=== PATIENT | male | born 1970 | race Two or more races ===

== ENCOUNTER 2020-05-25 15:51 | Outpatient (REF) | payer MEDICARE, MEDICAID, SELFPAY | END 2020-05-25 15:52 | disposition home or self-care (01) | LOC: HO.LNP 15:51 | PROVIDERS: Visit Provider Nurse Practitioner Family | DX: J02.9 Acute pharyngitis, unspecified (principal) | CPT/HCPCS: 87071 ==

== ENCOUNTER 2020-06-17 12:46 | Outpatient (REF) | payer MEDICARE, MEDICAID, SELFPAY | END 2020-06-17 12:47 | disposition home or self-care (01) | LOC: HO.LAB 12:46 | PROVIDERS: Visit Provider Internal Medicine | DX: Z20.828 Contact with and (suspected) exposure to other viral communicable diseases (principal) | CPT/HCPCS: C9803; U0003 ==

== ENCOUNTER 2020-12-11 10:02 | Outpatient (REF) | payer OTHER, SELFPAY ==
[2020-12-11 11:08] LABS: Alanine Aminotransferase 66 U/L (0-40); Albumin Level 4.3 g/dL (3.5-5.0); Alkaline Phosphatase 58 U/L (39-117); Anion Gap 14 (12-20); Aspartate Amino Transferase 38 U/L (5-37); Bilirubin Total 0.8 mg/dL (0.0-1.0); Blood Urea Nitrogen 16 mg/dL (9-16); Calcium 9.5 mg/dL (8.4-10.2); Carbon Dioxide 26 mmol/L (22-29); Chloride 103 mmol/L (96-108); Cholesterol 137 mg/dL; Estimated Glomerular Filt Rate > 60; Glucose Fasting 158 mg/dL (60-99); HDL Cholesterol 41 mg/dL; LDL Cholesterol Calculated 64 mg/dl; Sodium 139 mmol/L (135-145); Total Protein 7.2 g/dL (6.5-8.0); Triglycerides 161 mg/dL
[2020-12-11 12:19] LABS: Creatinine Urine 207.24 mg/dL; Microalbum/Creatinine Ratio Ur 14.9 ug/mg cr
== END 2020-12-11 10:03 | disposition home or self-care (01) ==
LOC: HO.LAB 10:02
PROVIDERS: PCP Internal Medicine; Visit Provider Internal Medicine
DX: E11.9 Type 2 diabetes mellitus without complications (principal); E78.5 Hyperlipidemia, unspecified
CPT/HCPCS: 36415; 80053; 80061; 82043

== ENCOUNTER 2020-12-29 09:57 | Emergency (ER) | payer OTHER, SELFPAY ==
--- NOTE | ~2020-12-29 | XR_ITS ---
EXAMINATION: XR ANKLE, RIGHT CLINICAL INFORMATION: Fall COMPARISON: None TECHNIQUE: AP, lateral, and mortise views of the right ankle. FINDINGS: There is question of trauma to the medial malleolus. No adjacent soft tissue swelling is seen and this may not be acute. No definite acute fracture or dislocation is seen. The ankle mortise is normal. There may be an ankle joint effusion. There are small calcaneal spurs. XR/XR ankle RT 2V IMPRESSION: No acute fracture seen. Probable old trauma to the medial malleolus and ankle joint effusion.
--- NOTE | ~2020-12-29 | CT_ITS ---
EXAMINATION: CT HEAD WITHOUT CONTRAST CLINICAL INFORMATION: Headache COMPARISON: Previous head CT most recent April 2018 TECHNIQUE: Contiguous axial imaging was performed from the skull base to vertex without intravenous administration of contrast. This CT examination was performed using dose optimization techniques as appropriate, variously including the following: *Automated exposure control *Adjustment of mA and/or kV according to patient size (this includes techniques or standardized protocols for targeted exams where dose is matched to indication/reason for exam; i.e. extremities or head) *Use of iterative reconstruction technique DLP: 773 mGy-cm FINDINGS: There is no evidence of acute intracranial hemorrhage or territorial infarction. No abnormal mass effect or midline shift is seen. [place] to white matter differentiation is well preserved. No extra-axial fluid collections are identified. The ventricles are normal in size. There is no abnormal attenuation within the brain parenchyma. The osseous structures and soft tissues are normal. There is near complete soft tissue opacification of the left maxillary sinus. There is a small polyp or cyst in the right maxillary sinus. These findings are similar to 2018 exam. The mastoid air cells and visualized portions of the paranasal sinuses are otherwise clear. CT/CT head/brain wo con IMPRESSION: Chronic left maxillary sinus disease otherwise unremarkable exam.
--- NOTE | ~2020-12-29 | CT_ITS ---
EXAMINATION: CT LUMBAR SPINE WITHOUT CONTRAST. CLINICAL INFORMATION: Status post fall COMPARISON: None TECHNIQUE: 2 mm thin axial and reformatted 2 mm thin sagittal and coronal images of lumbar spine were obtained without contrast. 3 mm thin axial and reformatted 0.6 by thin coronal and sagittal images of pelvis were obtained without contrast. FINDINGS: Lumbar spine: On sagittal reconstructed images there is normal lumbar lordosis. The vertebral heights, alignment and disc heights are normal. There is no evidence of disc bulge, herniation or spinal stenosis from T12-L1 through L2-L3 disc level. L3-L4 disc level there is mild bulge without spinal canal stenosis. The neural foramina are patent bilaterally. At L4-L5 disc level there is minimal bulge without spinal canal stenosis. The neural foramina are patent bilaterally. At L5-S1 disc level there is minimal disc bulge, herniation or spinal canal stenosis. The neural foramina are patent bilaterally. There is no visible acute fracture, dislocation or lytic process the soft tissues are normal. The paravertebral soft tissues are normal. Pelvis: The urinary bladder is distended. No radiopaque bladder calculi seen. The bowel gas pattern is nonspecific and appears unremarkable. There is no free fluid in cul-de-sac. No abnormal lymphadenopathy. The prostate gland is normal size. Bone windows reveal no visible fracture or bony abnormality. The hip joints are symmetrical and normal. CT/CT lumbar spine wo con IMPRESSION: Minimal bulges L3-L4 through L5-S1 disc levels but no spinal canal stenosis or neural foramina narrowing. There is no visible acute fracture or bony abnormality. Unremarkable pelvis and sacral spine. No visible fracture seen. The hip joints are intact.
--- NOTE | ~2020-12-29 | CT_ITS ---
EXAMINATION: CT CERVICAL SPINE WITHOUT CONTRAST CLINICAL INFORMATION: Neck pain. Fall. COMPARISON: Cervical spine x-ray October 2007 TECHNIQUE: Axial images through the cervical spine without contrast. Sagittal and coronal reconstructions on the technologist workstation were performed. Patient dose 7 0 2 mg/cm This CT examination was performed using dose optimization techniques as appropriate, variously including the following: *Automated exposure control *Adjustment of mA and/or kV according to patient size (this includes techniques or standardized protocols for targeted exams where dose is matched to indication/reason for exam; i.e. extremities or head) *Use of iterative reconstruction technique DLP: 702 mGy-cm FINDINGS: Bone alignment is normal. No fracture or dislocation is seen. There is mild degenerative spondylosis at C6-C7. Prevertebral soft tissues are normal. There is shotty cervical lymphadenopathy. Visualized lung apices are clear. CT/CT cervical spine wo con IMPRESSION: No fracture or dislocation seen. Mild degenerative spondylosis at C6-C7.
--- NOTE | ~2020-12-29 | CT_ITS ---
EXAMINATION: CT LUMBAR SPINE WITHOUT CONTRAST. CLINICAL INFORMATION: Status post fall COMPARISON: None TECHNIQUE: 2 mm thin axial and reformatted 2 mm thin sagittal and coronal images of lumbar spine were obtained without contrast. 3 mm thin axial and reformatted 0.6 by thin coronal and sagittal images of pelvis were obtained without contrast. FINDINGS: Lumbar spine: On sagittal reconstructed images there is normal lumbar lordosis. The vertebral heights, alignment and disc heights are normal. There is no evidence of disc bulge, herniation or spinal stenosis from T12-L1 through L2-L3 disc level. L3-L4 disc level there is mild bulge without spinal canal stenosis. The neural foramina are patent bilaterally. At L4-L5 disc level there is minimal bulge without spinal canal stenosis. The neural foramina are patent bilaterally. At L5-S1 disc level there is minimal disc bulge, herniation or spinal canal stenosis. The neural foramina are patent bilaterally. There is no visible acute fracture, dislocation or lytic process the soft tissues are normal. The paravertebral soft tissues are normal. Pelvis: The urinary bladder is distended. No radiopaque bladder calculi seen. The bowel gas pattern is nonspecific and appears unremarkable. There is no free fluid in cul-de-sac. No abnormal lymphadenopathy. The prostate gland is normal size. Bone windows reveal no visible fracture or bony abnormality. The hip joints are symmetrical and normal. CT/CT pelvis wo con IMPRESSION: Minimal bulges L3-L4 through L5-S1 disc levels but no spinal canal stenosis or neural foramina narrowing. There is no visible acute fracture or bony abnormality. Unremarkable pelvis and sacral spine. No visible fracture seen. The hip joints are intact.
[2020-12-29 10:23] VITALS: BP 139/92; PULSE 68; RESP 15; TEMP 36.1; O2SAT 97; BMI 31.6
--- NOTE | 2020-12-29 12:07 | ED_ITS ---
HPI - General Adult General Chief complaint: Back Pain/Injury <ZULLY Brandt - Last Filed: 12/29/20 16:18> Stated complaint: fall back pain <ZULLY Brandt - Last Filed: 12/29/20 16:18> Time Seen by Provider: 12/29/20 11:46 <ZULLY Brandt - Last Filed: 12/29/20 16:18> Source: patient <ZULLY Brandt - Last Filed: 12/29/20 16:18> Mode of arrival: ambulatory <ZULLY Brandt Last Filed: 12/29/20 16:18> History of Present Illness HPI narrative: 50-year-old male past medical history of diabetes, hypertension dyslipidemia asthma presenting to emergency department after a fall. He states he [place] park [place]21 and he slipped on a wet mat trying to get a tube and fell backwards. He does not think he had a head. No LOC. He was able to get himself right afterwards. Denies anticoagulant use. Since then he has been complaining of persistent headaches to the back his head that radiates to the front. He endorses neck pain, lower back pain and tailbone pain. He states he injured his right ankle. He has been able to ambulate since injury. He denies any incontinence. He denies chest pain, abdominal pain. He denies IV drug use. No spinal injection. He states he attempted to come to [facility] each time he was very busy so he went home. <ZULLY Brandt - Last Filed: 12/29/20 16:18> Related Data Home medications: Home Medications Medication Instructions Recorded Confirmed buspirone 10 mg tablet 10 mg PO BID 05/25/20 01/13/21 clonazepam 1 mg tablet 1 mg PO BEDTIME PRN 05/25/20 01/13/21 flu vacc [id number] 6mos up(PF) ml IM ONCE 05/25/20 01/13/21 fluticasone 113 mcg-salmeterol 14 1 inh PO BID 05/25/20 01/13/21 mcg/actuation breath activated powdr prazosin 2 mg capsule 2 mg PO BEDTIME 05/25/20 01/13/21 prazosin 5 mg capsule 5 mg PO BEDTIME 05/25/20 01/13/21 risperidone 1 mg tablet 1 mg PO QAM 05/25/20 01/13/21 trazodone 50 mg tablet mg PO 05/25/20 01/13/21 Previous Rx's Medication Instructions Recorded metformin 500 mg tablet,extended 500 mg PO BID 90 Days #180 tab 07/13/20 release 24hr albuterol sulfate 90 mcg/actuation 1 puff PO Q4H PRN 30 Days #6.7 g 07/24/20 aerosol inhaler escitalopram oxalate 20 mg tablet 20 mg PO DAILY 90 Days #90 tab 07/24/20 amlodipine 10 mg tablet 10 mg PO DAILY #90 tab 12/09/20 atorvastatin 20 mg tablet 20 mg PO DAILY #90 tab 12/24/20 lidocaine 1 patch TOPICAL DAILY 5 Days #5 ea 12/29/20 cyclobenzaprine 10 mg tablet 10 mg PO TID PRN #90 tab 01/13/21 acetaminophen 650 mg 1,300 mg PO Q8H PRN 30 Days #120 02/03/21 tablet,extended release tab amoxicillin 500 mg tablet 500 mg PO BID 7 Days #14 tab 02/03/21 <ZULLY Brandt - Last Filed: 12/29/20 16:18> Allergies/adverse reactions: Allergies Allergy/AdvReac Type Severity Reaction Status Date / Time lisinopril Allergy Severe anaphylaxis Verified 01/13/21 14:11 gabapentin AdvReac Intermediate leg edema Verified 01/13/21 14:11 <ZULLY Brandt Last Filed: 12/29/20 16:18> Review of Systems Constitutional: Constitutional: Denies fever(s) and Reports headache(s) <ZULLY Brandt Last Filed: 12/29/20 16:18> Eyes: Eyes: Reports no additional eye complaints <ZULLY Brandt Last Filed: 12/29/20 16:18> ENT: Denies dizziness and Reports headache(s) <ZULLY Brandt Last Filed: 12/29/20 16:18> Cardiovascular: Cardiovascular: Denies chest pain and Denies dyspnea <ZULLY Brandt Last Filed: 12/29/20 16:18> Respiratory: Respiratory: Denies dyspnea <ZULLY Brandt - Last Filed: 12/29/20 16:18> Gastrointestinal: Gastrointestinal: Denies abdominal pain <ZULLY Brandt - Last Filed: 12/29/20 16:18> Genitourinary: Genitourinary: Denies urinary incontinence <ZULLY Brandt - Last Filed: 12/29/20 16:18> Musculoskeletal: Musculoskeletal: Reports back pain <ZULLY Brandt - Last Filed: 12/29/20 16:18> Comments: right ankle pain <ZULLY Brandt - Last Filed: 12/29/20 16:18> Neurologic: Denies dizziness and Reports headache(s) <ZULLY Brandt - Last Filed: 12/29/20 16:18> Hematologic/Lymphatic: Hematologic/Lymphatic: Denies easy bleeding <ZULLY Brandt - Last Filed: 12/29/20 16:18> PMF Past Medical History Medical History: Medical History Depression with anxiety Diabetes mellitus Dyslipidemia Essential hypertension Insomnia Mild asthma Polyarthralgia <ZULLY Brandt - Last Filed: 12/29/20 16:18> Surgical History: Surgical History Donor, kidney History of circumcision <ZULLY Brandt - Last Filed: 12/29/20 16:18> Family History Family History: Family History (Updated 01/13/21 @ 13:58 by CHRIS Weathers) Father Liver problem Mother Diabetes Hypertension Stroke Brother Throat cancer Family/Other Mental health disorder <ZULLY Brandt - Last Filed: 12/29/20 16:18> Social History Social History: Social History Housing: Apartment Alcohol intake: former Patient Tobacco Use Status: Former Tobacco user Tobacco use type: Cigarette e-Cigarette/Vaping Use: Never Used Second Hand Smoke Exposure: No service: No Current occupational status: disabled <ZULLY Brandt - Last Filed: 12/29/20 16:18> Physical Exam Vital Signs: Vital Signs: Last Vital Signs Temp 98.3 F 12/29/20 14:29 Pulse 73 12/29/20 14:29 Resp 16 12/29/20 14:29 BP 136/92 H 12/29/20 14:29 Pulse Ox 98 12/29/20 14:29 Body Mass Index 31.6 <ZULLY Brandt - Last Filed: 12/29/20 16:18> Vital Signs: Last Vital Signs Temp 98.3 F 12/29/20 14:29 Pulse 73 12/29/20 14:29 Resp 16 12/29/20 14:29 BP 136/92 H 12/29/20 14:29 Pulse Ox 98 12/29/20 14:29 Body Mass Index 31.6 <Markel Mujica MD - Last Filed: 02/06/21 08:51> Const: Other: Patient sitting upright in stretcher <ZULLY Brandt - Last Filed: 12/29/20 16:18> Orientation/consciousness: patient oriented x3 <ZULLY Brandt - Last Filed: 12/29/20 16:18> HENMT: Head: Yes atraumatic <ZULLY Brandt - Last Filed: 12/29/20 16:18> Eyes: Pupils: Equal, round and reactive pupils present <ZULLY Brandt - Last Filed: 12/29/20 16:18> EOM: EOMs intact bilaterally <ZULLY Brandt - Last Filed: 12/29/20 16:18> Neck: Neck: Yes full ROM, Yes trachea midline and Yes supple <ZULLY Brandt - Last Filed: 12/29/20 16:18> Chest: Chest palpation & inspection: normal inspection of the chest <ZULLY Brandt - Last Filed: 12/29/20 16:18> Resp: Effort & Inspection: normal respiratory effort <ZULLY Brandt - Last Filed: 12/29/20 16:18> Auscultation: clear to auscultation bilaterally <ZULLY Brandt - Last Filed: 12/29/20 16:18> Cardio: Rate: regular rate <ZULLY Brandt - Last Filed: 12/29/20 16:18> Rhythm: regular rhythm <ZULLY Brandt - Last Filed: 12/29/20 16:18> GI: Inspection: No distended <ZULLY Brandt - Last Filed: 12/29/20 16:18> Palpation (GI): Soft to palpation and nontender <ZULLY Brandt - Last Filed: 12/29/20 16:18> Back/Spine/Pelvis: Other: Tenderness to his right upper trapezius musculature, tenderness to his lumbar spine diffusely <ZULLY Brandt - Last Filed: 12/29/20 16:18> Skin: Other: Intact skin, warm <ZULLY Brandt - Last Filed: 12/29/20 16:18> Neuro: Other: No focal neurological deficits <ZULLY Brandt - Last Filed: 12/29/20 16:18> General: patient oriented x3 <ZULLY Brandt - Last Filed: 12/29/20 16:18> Cranial nerves: Yes Equal, round and reactive pupils present <ZULLY Brandt - Last Filed: 12/29/20 16:18> Extrem: Other: Pelvis is stable, able to passively range at each joint in his lower extremities, he has some swelling to his right ankle pain along his lateral malleolus but is able to flex and extend, palpable pulses bilaterally, compartments soft, neurovascularly intact, no obvious deformity <ZULLY Brandt - Last Filed: 12/29/20 16:18> Psych: Appearance: grossly normal <ZULLY Brandt - Last Filed: 12/29/20 16:18> Course Course Course Narrative: Patient has been requesting something else for his pain and states the Tylenol has not helped. He states he donated one of his kidneys and does not want to take ibuprofen. <ZULLY Brandt Last Filed: 12/29/20 16:18> I have reviewed the chart <Markel Mujica MD - Last Filed: 02/06/21 08:51> Reevaluation(s) Reevaluation #1: His CTs were negative for an acute fracture. <ZULLY Brandt - Last Filed: 12/29/20 16:18> Reevaluation #2: TECHNIQUE: 2 mm thin axial and reformatted 2 mm thin sagittal and coronal images of lumbar spine were obtained without contrast. 3 mm thin axial and reformatted 0.6 by thin coronal and sagittal images of pelvis were obtained without contrast. FINDINGS: Lumbar spine: On sagittal reconstructed images there is normal lumbar lordosis. The vertebral heights, alignment and disc heights are normal. There is no evidence of disc bulge, herniation or spinal stenosis from T12-L1 through L2-L3 disc level. L3-L4 disc level there is mild bulge without spinal canal stenosis. The neural foramina are patent bilaterally. At L4-L5 disc level there is minimal bulge without spinal canal stenosis. The neural foramina are patent bilaterally. At L5-S1 disc level there is minimal disc bulge, herniation or spinal canal stenosis. The neural foramina are patent bilaterally. There is no visible acute fracture, dislocation or lytic process the soft tissues are normal. The paravertebral soft tissues are normal. Pelvis: The urinary bladder is distended. No radiopaque bladder calculi seen. The bowel gas pattern is nonspecific and appears unremarkable. There is no free fluid in cul-de-sac. No abnormal lymphadenopathy. The prostate gland is normal size. Bone windows reveal no visible fracture or bony abnormality. The hip joints are symmetrical and normal. CT/CT pelvis wo con IMPRESSION: Minimal bulges L3-L4 through L5-S1 disc levels but no spinal canal stenosis or neural foramina narrowing. There is no visible acute fracture or bony abnormality. Unremarkable pelvis and sacral spine. No visible fracture seen. The hip joints are intact. <ZULLY Brandt - Last Filed: 12/29/20 16:18> Reevaluation #3: FINDINGS: Bone alignment is normal. No fracture or dislocation is seen. There is mild degenerative spondylosis at C6-C7. Prevertebral soft tissues are normal. There is shotty cervical lymphadenopathy. Visualized lung apices are clear. CT/CT cervical spine wo con IMPRESSION: No fracture or dislocation seen. Mild degenerative spondylosis at C6-C7. FINDINGS: There is no evidence of acute intracranial hemorrhage or territorial infarction. No abnormal mass effect or midline shift is seen. Lindo to white matter differentiation is well preserved. No extra-axial fluid collections are identified. The ventricles are normal in size. There is no abnormal attenuation within the brain parenchyma. The osseous structures and soft tissues are normal. There is near complete soft tissue opacification of the left maxillary sinus. There is a small polyp or cyst in the right maxillary sinus. These findings are similar to 2018 exam. The mastoid air cells and visualized portions of the paranasal sinuses are otherwise clear. CT/CT head/brain wo con IMPRESSION: Chronic left maxillary sinus disease otherwise unremarkable exam. <ZULLY Brandt - Last Filed: 12/29/20 16:18> Additional Reevaluation(s): FINDINGS: There is question of trauma to the medial malleolus. No adjacent soft tissue swelling is seen and this may not be acute. No definite acute fracture or dislocation is seen. The ankle mortise is normal. There may be an ankle joint effusion. There are small calcaneal spurs. XR/XR ankle RT 2V IMPRESSION: No acute fracture seen. Probable old trauma to the medial malleolus and ankle joint effusion. <ZULLY Brandt Last Filed: 12/29/20 16:18> Medical Decision Making [facility] Narrative Medical decision making narrative: 50-year-old male presenting to the emergency department with headache and back pain, right ankle pain after a fall [place] water park on [place]21 Vitals stable, not toxic appearing, hemodynamically stable Patient reports persistent headache since the fall, will plan for head CT. Reassuring no cognitive neurologic decline, no focal deficits there were a hemorrhage is less likely but will evaluate. Patient is reporting neck pain and has some tenderness to his upper trapezius seems to be more musculoskeletal however he has increased pain therefore will plan for some cervical CT to rule out underlying fracture. No evidence of thoracic or abdominal injury. His upper limbs are atraumatic. Will plan for CT of his lumbar spine and pelvis to rule out a fracture. He has no red flags for a cord compression. Will plan for plain film of his right ankle as well due to the swelling, however he has been able to ambulate therefore an acute fracture is less likely. <ZULLY Brandt Last Filed: 12/29/20 16:18> Discharge Plan Discharge Clinical Impression: Fall, Ankle sprain, Back pain, Headache <ZULLY Brandt Last Filed: 12/29/20 16:18> Patient Disposition: Home, Self-Care <ZULLY Brandt Last Filed: 12/29/20 16:18> Instructions: Back Pain (ED), R.I.C.E. Treatment (ED), Fall Prevention (ED) <ZULLY Brandt Last Filed: 12/29/20 16:18> Additional Instructions: you were seen in the emergency department after a fall several days ago. Your CAT scan of your head, neck, lower back and pelvis were all unremarkable. No acute fractures. Your x-ray of your right ankle was unremarkable. Please return to the emergency department for symptoms worsen, worsening pain, difficulty walking, numbness, tingling, weakness, vision changes, worsening headache, loss of bladder or bowel function, or any other concerning symptoms. .Please call your doctor for follow up to make sure your symptoms are improving. continue with your home medications, take tylenol for pain if needed. Use lidocaine patches as prescribed. <ZULLY Brandt Last Filed: 12/29/20 16:18> Prescriptions: New lidocaine 5 % adhesive patch,medicated 1 patch topical DAILY 5 Days Qty: 5 RF: 0 No Action albuterol sulfate 90 mcg/actuation HFA aerosol inhaler 1 puff PO Q4H PRN (Reason: shortness of breath or wheezing) 30 Days Qty: 6.7 RF: 8 escitalopram oxalate 20 mg tablet 20 mg PO DAILY 90 Days Qty: 90 RF: 3 amlodipine 10 mg tablet 10 mg PO DAILY Qty: 90 RF: 1 atorvastatin 20 mg tablet 20 mg PO DAILY Qty: 90 RF: 1 amoxicillin 500 mg tablet 500 mg PO BID 7 Days Qty: 14 RF: 0 acetaminophen [Arthritis Pain Relief (acetam)] 650 mg tablet extended release 1,300 mg PO Q8H PRN (Reason: fever or pain) 30 Days Qty: 120 RF: 1 metformin 500 mg tablet extended release 24hr 500 mg PO BID 90 Days Qty: 180 RF: 3 clonazepam 1 mg tablet 1 mg PO BEDTIME PRNRF: 0 prazosin 2 mg capsule 2 mg PO BEDTIME RF: 0 trazodone 50 mg tablet PO RF: 0 buspirone 10 mg tablet 10 mg PO BID RF: 0 risperidone 1 mg tablet 1 mg PO QAM RF: 0 prazosin 5 mg capsule 5 mg PO BEDTIME RF: 0 fluticasone propion-salmeterol 113-14 mcg/actuation aerosol powdr breath activated 1 inh PO BID RF: 0 Fluzone Quad (PF) 60 mcg (15 mcg x 4)/0.5 mL syringe IM ONCE RF: 0 cyclobenzaprine 10 mg tablet 10 mg PO TID PRN (Reason: muscle spasm) Qty: 90 RF: 2 <ZULLY Brandt - Last Filed: 12/29/20 16:18> Interventions: ED Discharge Assessment Last Done: 12/29/20 14:36 <ZULLY Brandt - Last Filed: 12/29/20 16:18> Discharge Date/Time: 12/29/20 14:36 <ZULLY Brandt - Last Filed: 12/29/20 16:18>
[2020-12-29] MEDS: Acetaminophen 325 MG TABLET 650 MG PO (12:10)
[2020-12-29 14:29] VITALS: BP 136/92; PULSE 73; RESP 16; TEMP 36.8; O2SAT 98
== END 2020-12-29 14:36 | disposition home or self-care (01) ==
PROVIDERS: Emergency Provider Emergency Medicine; PCP Internal Medicine
DX: S93.401A Sprain of unspecified ligament of right ankle, initial encounter (principal); W01.0XXA Fall on same level from slipping, tripping and stumbling without subsequent striking against object, initial encounter; G89.11 Acute pain due to trauma; M54.5 Low back pain; R51.9 Headache, unspecified; Y93.19 Activity, other involving water and watercraft; Y92.831 Amusement park as the place of occurrence of the external cause; Y99.8 Other external cause status
CPT/HCPCS: 70450; 72125; 72131; 72192; 73600; 99284; 99285

== ENCOUNTER → 2021-02-16 14:57 | Outpatient (BNVA) | payer OTHER, SELFPAY | PROVIDERS: PCP Internal Medicine; Visit Provider Nurse Practitioner Family | DX: M53.3 Sacrococcygeal disorders, not elsewhere classified (principal); M54.16 Radiculopathy, lumbar region | CPT/HCPCS: 99202 ==

== ENCOUNTER 2021-03-08 09:47 | Outpatient (REF) | payer OTHER, SELFPAY ==
--- NOTE | ~2021-03-08 | XR_ITS ---
EXAMINATION: XR CHEST CLINICAL INFORMATION: Shortness of breath COMPARISON: 05/10/2018 TECHNIQUE: 2 views of the chest were obtained. FINDINGS: Normal symmetric lung volumes. No parenchymal consolidation. No pleural effusion. No pneumothorax. Cardiomediastinal silhouette and pulmonary vascularity are within normal limits. No acute osseous abnormalities. XR/XR chest 2V IMPRESSION: Unremarkable examination.
== END 2021-03-08 09:48 | disposition home or self-care (01) ==
LOC: HO.XRAY 09:47
PROVIDERS: PCP Internal Medicine; Visit Provider Internal Medicine
DX: R06.02 Shortness of breath (principal)
CPT/HCPCS: 71046

== ENCOUNTER 2021-03-09 18:48 | Outpatient (REF) | payer OTHER, SELFPAY ==
--- NOTE | ~2021-03-09 | MR_ITS ---
EXAMINATION: MR LUMBAR SPINE WITHOUT CONTRAST CLINICAL INFORMATION: Radiculopathy lumbar spine. COMPARISON: CT scan of the lumbar spine 12/30/2020. TECHNIQUE: MRI of the lumbar spine was obtained using routine sequences without contrast. FINDINGS: Alignment is normal. Vertebral heights are preserved. No acute bone marrow signal changes. There is relatively mild disc desiccation visualized at multiple levels without substantial loss of intervertebral disc height. There is an asymmetrically bulging disc at L4-L5 causing subtle abutment along the foraminal/extraforaminal segment of the right L4 nerve root. Annular contours are otherwise normal at all levels. The tip of the conus medullaris is located at L1. No mass effect on the conus. Visualized distal cord signal intensity is normal. The left kidney is not visualized. Limited visualization of the retroperitoneal anatomy otherwise reveals no abnormal finding. MR/MR lumbar spine wo con IMPRESSION: There is an asymmetrically bulging disc at L4-L5 causing subtle abutment on the foraminal/extraforaminal segment of the right L4 nerve root. Otherwise no mass effect on the traversing or foraminal nerve roots elsewhere within the lumbar spine. No canal stenosis.
== END 2021-03-09 18:49 | disposition home or self-care (01) ==
LOC: HO.MRI 18:48
PROVIDERS: PCP Internal Medicine; Visit Provider Nurse Practitioner Family
DX: M54.16 Radiculopathy, lumbar region (principal)
CPT/HCPCS: 72148

== ENCOUNTER → 2021-03-26 09:37 | Outpatient (BNVA) | payer OTHER, SELFPAY | PROVIDERS: PCP Internal Medicine; Visit Provider Nurse Practitioner Family | DX: M53.3 Sacrococcygeal disorders, not elsewhere classified (principal); M54.16 Radiculopathy, lumbar region | CPT/HCPCS: Q3014 ==

== ENCOUNTER 2021-04-14 06:03 | Outpatient (REF) | payer OTHER, SELFPAY | END 2021-04-14 06:04 | disposition home or self-care (01) | LOC: HO.RADIR 06:03 | PROVIDERS: Visit Provider Internal Medicine | DX: Z13.89 Encounter for screening for other disorder (principal) ==

== ENCOUNTER 2021-04-28 09:18 | Outpatient (REF) | payer OTHER, SELFPAY ==
[2021-04-28 10:38] LABS: Alanine Aminotransferase 35 U/L (0-40); Albumin Level 4.2 g/dL (3.5-5.0); Alkaline Phosphatase 70 U/L (39-117); Anion Gap 12 (12-20); Aspartate Amino Transferase 18 U/L (5-37); Bilirubin Total 0.9 mg/dL (0.0-1.0); Blood Urea Nitrogen 12 mg/dL (9-16); Calcium 9.4 mg/dL (8.4-10.2); Carbon Dioxide 26 mmol/L (22-29); Chloride 104 mmol/L (96-108); Cholesterol 142 mg/dL; Estimated Glomerular Filt Rate > 60; Glucose Fasting 169 mg/dL (60-99); HDL Cholesterol 34 mg/dL; LDL Cholesterol Calculated 50 mg/dl; Potassium 4.3 mmol/L (3.3-5.1); Sodium 138 mmol/L (135-145); Total Protein 7.5 g/dL (6.5-8.0); Triglycerides 294 mg/dL
[2021-04-28 10:42] LABS: Creatinine Urine 171.41 mg/dL
[2021-05-06 16:07] LABS: Vitamin D 25-OH, D2 <4 ng/mL; Vitamin D 25-OH, D3 28 ng/mL; Vitamin D 25-OH, Total 28 ng/mL (30-100)
== END 2021-04-28 09:19 | disposition home or self-care (01) ==
LOC: HO.LAB 09:18
PROVIDERS: Internal Medicine; PCP Student in an Organized Health Care Education/Training Program; Visit Provider Student in an Organized Health Care Education/Training Program
DX: E11.9 Type 2 diabetes mellitus without complications (principal); E55.9 Vitamin D deficiency, unspecified; I10 Essential (primary) hypertension; E78.5 Hyperlipidemia, unspecified
CPT/HCPCS: 36415; 80053; 80061; 82043; 82306

== ENCOUNTER → 2021-08-18 15:54 | Outpatient (REF) | payer OTHER, SELFPAY | LOC: HO.SL 15:54 | PROVIDERS: Visit Provider Internal Medicine | DX: R40.0 Somnolence (principal); G47.33 Obstructive sleep apnea (adult) (pediatric) | CPT/HCPCS: 95806 ==

== ENCOUNTER 2021-08-24 12:36 | Outpatient (REF) | payer OTHER, SELFPAY ==
--- NOTE | ~2021-08-24 | XR_ITS ---
EXAMINATION: XR CHEST CLINICAL INFORMATION: Cough COMPARISON: Previous chest x-ray most recent February 2021 TECHNIQUE: 2 views of the chest were obtained. FINDINGS: No significant abnormality is noted involving the heart, lungs, mediastinum, bony thorax or soft tissues. XR/XR chest 2V IMPRESSION: Unremarkable examination.
== END 2021-08-24 12:37 | disposition home or self-care (01) ==
LOC: HO.XRAY 12:36
PROVIDERS: PCP Internal Medicine; Visit Provider Internal Medicine
DX: R05.9 Cough, unspecified (principal)
CPT/HCPCS: 71046

== ENCOUNTER → 2021-09-01 14:57 | Outpatient (BNVA) | payer OTHER, SELFPAY | PROVIDERS: PCP Internal Medicine; Visit Provider Internal Medicine | DX: G47.33 Obstructive sleep apnea (adult) (pediatric) (principal); G47.34 Idiopathic sleep related nonobstructive alveolar hypoventilation; E66.9 Obesity, unspecified; Z68.32 Body mass index [BMI] 32.0-32.9, adult | CPT/HCPCS: 99202 ==

== ENCOUNTER 2021-10-05 14:05 | Outpatient (REF) | payer OTHER, SELFPAY ==
--- NOTE | ~2021-10-05 | XR_ITS ---
EXAMINATION: XR FEMUR, RIGHT CLINICAL INFORMATION: Pain right leg. COMPARISON: None TECHNIQUE: AP and lateral views of the right femur were obtained. FINDINGS: There is a juxtacortical and metadiaphyseal lesion distal lateral femoral cortex isodense to the bone marrow and without any scalloping or erosive changes likely benign lesion. It measures 3.3 cm in maximum length. There is no chondroid metrics or sclerosis. XR/XR femur RT 2V IMPRESSION: Metadiaphyseal cortical based lesion likely benign but no aggressive features. Differential diagnoses includes sessile osteochondroma, old healed fracture, fibrous dysplasia or osteoid osteoma. No additional lesions seen. The soft tissues are normal.
== END 2021-10-05 14:06 | disposition home or self-care (01) ==
LOC: HO.XRAY 14:05
PROVIDERS: PCP Internal Medicine; Visit Provider Nurse Practitioner Family
DX: M79.604 Pain in right leg (principal)
CPT/HCPCS: 73552

== ENCOUNTER → 2021-10-12 08:20 | Outpatient (BNVA) | payer OTHER, SELFPAY | PROVIDERS: PCP Internal Medicine; Referring Provider Internal Medicine; Visit Provider Physician Assistant | DX: Z12.11 Encounter for screening for malignant neoplasm of colon (principal); G47.33 Obstructive sleep apnea (adult) (pediatric); K59.00 Constipation, unspecified; Z78.9 Other specified health status | CPT/HCPCS: 99202 ==

== ENCOUNTER → 2021-10-14 22:13 | Outpatient (REF) | payer OTHER, SELFPAY | LOC: HO.SL 22:13 | PROVIDERS: PCP Internal Medicine; Visit Provider Internal Medicine | DX: Z13.89 Encounter for screening for other disorder (principal) ==

== ENCOUNTER → 2021-11-03 15:00 | Outpatient (BNVA) | payer OTHER, SELFPAY | PROVIDERS: PCP Internal Medicine; Visit Provider Internal Medicine | DX: G47.33 Obstructive sleep apnea (adult) (pediatric) (principal); G47.34 Idiopathic sleep related nonobstructive alveolar hypoventilation; E66.9 Obesity, unspecified; Z68.32 Body mass index [BMI] 32.0-32.9, adult | CPT/HCPCS: 99212 ==

== ENCOUNTER → 2021-11-19 10:54 | Outpatient (BNVA) | payer OTHER, SELFPAY | PROVIDERS: PCP Internal Medicine; Visit Provider Physician Assistant | DX: D16.20 Benign neoplasm of long bones of unspecified lower limb (principal) | CPT/HCPCS: 99202 ==

== ENCOUNTER 2021-12-02 18:44 | Outpatient (REF) | payer OTHER, SELFPAY ==
--- NOTE | ~2021-12-02 | MR_ITS ---
EXAMINATION: MR KNEE WITHOUT CONTRAST, RIGHT CLINICAL INFORMATION: Benign neoplasm of long bones. Pain, lump/mass. COMPARISON: Right femoral radiographs dated 10/05/2021. TECHNIQUE: MRI of the knee without contrast was performed using routine sequences on a high-field scanner. FINDINGS: BONE: Within the anterolateral aspect of the distal femoral diametaphysis there is an exophytic bone lesion measuring up to 4.8 x 2.5 cm (CC by ML) with a continuous marrow cavity. Thin cartilaginous cap measuring up to 0.1 cm. Findings are consistent with an osteochondroma. No associated marrow edema. No fracture. No aggressive features. MUSCLES/TENDONS: Within the vastus lateralis myotendinous junction overlying the osteochondroma there is mild edema. No measurable tear or tendon retraction. LIGAMENTS: The intrinsic ligaments of the right knee are partially visualized and unremarkable. SOFT TISSUES: Soft tissue edema with trace fluid interposed between the vastus lateralis and osteochondroma, consistent with adventitial bursitis. MR/MR knee RT wo con IMPRESSION: Osteochondroma at the anterolateral aspect of the femoral diaphysis without aggressive features or acute marrow edema. Overlying soft tissue stranding and minimal fluid consistent with adventitial bursitis. Additionally there is mild edema along the vastus lateralis myotendinous junction consistent with an acute strain. No measurable tear or tendon retraction.
== END 2021-12-02 18:45 | disposition home or self-care (01) ==
LOC: HO.MRI 18:44
PROVIDERS: Visit Provider Physician Assistant
DX: D16.20 Benign neoplasm of long bones of unspecified lower limb (principal)
CPT/HCPCS: 73721

== ENCOUNTER → 2021-12-29 10:56 | Outpatient (BNVA) | payer OTHER, SELFPAY | PROVIDERS: PCP Internal Medicine; Visit Provider Physician Assistant | DX: D16.21 Benign neoplasm of long bones of right lower limb (principal) | CPT/HCPCS: 99212 ==

== ENCOUNTER → 2022-01-05 10:41 | Outpatient (BNVA) | payer OTHER, SELFPAY | PROVIDERS: PCP Internal Medicine; Visit Provider Internal Medicine | DX: E66.9 Obesity, unspecified (principal); G47.33 Obstructive sleep apnea (adult) (pediatric); J44.9 Chronic obstructive pulmonary disease, unspecified; Z68.32 Body mass index [BMI] 32.0-32.9, adult | CPT/HCPCS: 99212 ==

== ENCOUNTER 2022-01-25 13:55 | Outpatient (REF) | payer OTHER, SELFPAY ==
[2022-01-25 16:03] LABS: Alanine Aminotransferase 36 U/L (0-40); Albumin Level 4.3 g/dL (3.5-5.0); Alkaline Phosphatase 68 U/L (39-117); Anion Gap 14 (12-20); Aspartate Amino Transferase 20 U/L (5-37); Bilirubin Total 0.8 mg/dL (0.0-1.0); Blood Urea Nitrogen 15 mg/dL (9-16); Calcium 9.1 mg/dL (8.4-10.2); Carbon Dioxide 25 mmol/L (22-29); Chloride 106 mmol/L (96-108); Cholesterol 135 mg/dL; Estimated Glomerular Filt Rate > 60; Glucose Fasting 102 mg/dL (60-99); HDL Cholesterol 35 mg/dL; LDL Cholesterol Calculated 51 mg/dl; Potassium 3.8 mmol/L (3.3-5.1); Sodium 141 mmol/L (135-145); Total Protein 7.5 g/dL (6.5-8.0); Triglycerides 247 mg/dL
[2022-01-25 16:20] LABS: Free T4 (Free Thyroxine) 0.92 ng/dL (0.71-1.85); Vitamin D 25-OH Total 30.4 ng/mL (>30)
[2022-01-25 16:26] LABS: Prostate Specific Antigen Scr 0.18 ng/mL (<0.05-4.0); Thyroid Stimulating Hormone 3.19 uIU/mL (0.32-4.0)
[2022-01-25 16:38] LABS: Creatinine Urine 182.49 mg/dL; Microalbum/Creatinine Ratio Ur 15.3 ug/mg cr
[2022-01-27 20:21] LABS: Thyroglobulin Antibodies 2 IU/mL (< or = 1); Thyroid Peroxidase Antibodies 149 IU/mL (<9)
== END 2022-01-25 13:56 | disposition home or self-care (01) ==
LOC: HO.LAB 13:55
PROVIDERS: Absent Provider Internal Medicine; PCP Internal Medicine; Visit Provider Nurse Practitioner Family
DX: Z12.5 Encounter for screening for malignant neoplasm of prostate (principal); E78.5 Hyperlipidemia, unspecified; R79.89 Other specified abnormal findings of blood chemistry; E55.9 Vitamin D deficiency, unspecified; E11.9 Type 2 diabetes mellitus without complications; I10 Essential (primary) hypertension
CPT/HCPCS: 36415; 80053; 80061; 82043; 82306; 84153; 84439; 84443; 86376; 86800

== ENCOUNTER → 2022-02-08 08:54 | Outpatient (BNVA) | payer OTHER, SELFPAY | PROVIDERS: PCP Internal Medicine; Referring Provider Internal Medicine; Visit Provider Physician Assistant | DX: Z12.11 Encounter for screening for malignant neoplasm of colon (principal); K59.00 Constipation, unspecified; G47.33 Obstructive sleep apnea (adult) (pediatric); J44.9 Chronic obstructive pulmonary disease, unspecified; K21.9 Gastro-esophageal reflux disease without esophagitis | CPT/HCPCS: 99212 ==

== ENCOUNTER → 2022-02-18 08:17 | Outpatient (BNVA) | payer OTHER, SELFPAY | PROVIDERS: PCP Internal Medicine; Visit Provider Physician Assistant | DX: D16.20 Benign neoplasm of long bones of unspecified lower limb (principal) | CPT/HCPCS: 99212 ==

== ENCOUNTER 2022-02-22 11:24 | Day surgery (SDC) | payer OTHER, SELFPAY ==
[2022-02-10 14:06] VITALS: BMI 32.4
--- NOTE | 2022-02-21 12:04 | HO.ANESPROP2 ---
Documented by User: Anastasiia Oconnor NP 02/21/22 12:06 HPI - Anesthesia Eval Consult details Narrative: 51yo M for Right Excision Bone growth- Osteochondroma of femur PMFSH Active Problems Active Problems: All Active Problems (Updated 02/08/22 @ 09:43 by Bettye Harry PA-C) Acid reflux (Acute) Asthma with COPD (Acute) Physical exam (Acute) Osteochondroma of femur (Acute) Abnormal metaphysis of bone (Acute) Constipation (Acute) Poor historian (Acute) Right leg pain (Acute) Screen for colon cancer (Acute) Nocturnal hypoxemia (Acute) SRINI (obstructive sleep apnea) (Acute) Obesity (BMI 35.0-39.9 without comorbidity) (Acute) Elevated TSH (Acute) Family history of throat cancer (Acute) Chronic sore throat (Acute) Daytime somnolence (Acute) Shortness of breath (Acute) Mild recurrent major depression (Acute) Sacrococcygeal pain (Acute) Bilateral lumbar radiculopathy (Acute) Polyarthralgia (Acute) Lower back pain (Acute) Insomnia (Acute) Dyslipidemia (Acute) Mild asthma (Acute) Essential hypertension (Acute) Depression with anxiety (Acute) Sinusitis, acute maxillary (Acute) Sore throat (Acute) Diabetes mellitus (Acute) Past Medical History Medical History Chronic sore throat Daytime somnolence Depression with anxiety Diabetes mellitus Dyslipidemia Elevated TSH Essential hypertension Family history of throat cancer Insomnia Mild asthma Mild recurrent major depression Nocturnal hypoxemia Obesity (BMI 35.0-39.9 without comorbidity) SRINI (obstructive sleep apnea) Polyarthralgia Screen for colon cancer Shortness of breath Family History Family History Father Liver problem Mother Diabetes Hypertension Stroke Brother Throat cancer Family/Other Mental health disorder Surgical History Surgical History Donor, kidney History of circumcision Social History Social History Housing: Apartment Alcohol intake: former Patient Tobacco Use Status: Former Tobacco user Quit Date: 2007 Tobacco use type: Cigarette e-Cigarette/Vaping Use: Never Used Second Hand Smoke Exposure: No Use of substances other than those prescribed or required for medical reasons: No Are you DNR?: No Advance Directives: No Advance Directives Information Provided: Yes service: No Current occupational status: disabled Current occupation: left hand Cognitive needs: No Hearing needs: No Vision needs: No Meds Allergies Allergy/AdvReac Type Severity Reaction Status Date / Time lisinopril Allergy Severe anaphylaxis Verified 02/18/22 08:23 gabapentin AdvReac Intermediate leg edema Verified 02/18/22 08:23 Home Medications Medication Instructions Recorded Confirmed Last Taken Type buspirone 10 mg tablet 10 mg PO BID 05/25/20 02/10/22 Unknown History clonazepam 1 mg tablet 1 mg PO BEDTIME PRN Anxiety 05/25/20 02/10/22 Unknown History prazosin 2 mg capsule 2 mg PO BEDTIME 05/25/20 02/10/22 Unknown History prazosin 5 mg capsule 5 mg PO BEDTIME 05/25/20 02/10/22 Unknown History risperidone 1 mg tablet 1 mg PO QAM 05/25/20 02/10/22 Unknown History metformin 500 mg tablet,extended 500 mg PO BID 01/05/22 02/10/22 Unknown History release 24 hr omeprazole 20 mg capsule,delayed 20 mg PO QAM 01/05/22 02/10/22 02/22/22 08:00 History release Exam Exam Date and Time: February 21, 2022 1204 Height,Weight and Vital Signs: Height 5 ft 10 in Weight 102.5 kg Pertinent Lab Results Pertinent Lab Results: Laboratory Tests 07/23/19 01/25/22 15:50 14:38 WBC 8.6 Hgb 16.0 Hct 47.3 Plt Count 262 Sodium 141 Potassium 3.8 Chloride 106 Carbon Dioxide 25 BUN 15 Creatinine 1.03 Assessment and Plan Assessment Anesthesia Assessment: Chart Reviewed Documented by User: Saulo Escudero MD 02/22/22 15:36 PMFSH Past Medical History Medical History Chronic sore throat Daytime somnolence Depression with anxiety Diabetes mellitus Dyslipidemia Elevated TSH Essential hypertension Family history of throat cancer Insomnia Mild asthma Mild recurrent major depression Nocturnal hypoxemia Obesity (BMI 35.0-39.9 without comorbidity) SRINI (obstructive sleep apnea) Polyarthralgia Screen for colon cancer Shortness of breath Family History Family History Father Liver problem Mother Diabetes Hypertension Stroke Brother Throat cancer Family/Other Mental health disorder Family history of problems with anesthesia: No Surgical History Surgical History Donor, kidney History of circumcision History of Problems with Anesthesia: No Social History Social History Housing: Apartment Alcohol intake: former Patient Tobacco Use Status: Former Tobacco user Quit Date: 2007 Tobacco use type: Cigarette e-Cigarette/Vaping Use: Never Used Second Hand Smoke Exposure: No Use of substances other than those prescribed or required for medical reasons: No Are you DNR?: No Advance Directives: No Advance Directives Information Provided: Yes service: No Current occupational status: disabled Current occupation: left hand Cognitive needs: No Hearing needs: No Vision needs: No Meds Allergies Allergy/AdvReac Type Severity Reaction Status Date / Time lisinopril Allergy Severe anaphylaxis Verified 02/18/22 08:23 gabapentin AdvReac Intermediate leg edema Verified 02/18/22 08:23 Home Medications Medication Instructions Recorded Confirmed Last Taken Type buspirone 10 mg tablet 10 mg PO BID 05/25/20 02/10/22 Unknown History clonazepam 1 mg tablet 1 mg PO BEDTIME PRN Anxiety 05/25/20 02/10/22 Unknown History prazosin 2 mg capsule 2 mg PO BEDTIME 05/25/20 02/10/22 Unknown History prazosin 5 mg capsule 5 mg PO BEDTIME 05/25/20 02/10/22 Unknown History risperidone 1 mg tablet 1 mg PO QAM 05/25/20 02/10/22 Unknown History metformin 500 mg tablet,extended 500 mg PO BID 01/05/22 02/10/22 Unknown History release 24 hr omeprazole 20 mg capsule,delayed 20 mg PO QAM 01/05/22 02/10/22 02/22/22 08:00 History release Exam Airway Mallampati Class: II TM Dist: >3cm Neck ROM: Full Loose/Missing/Broken Teeth: Yes Assessment and Plan Assessment Anesthesia Assessment: Anesthesia Plan Discussed Final Anesthetic Review Family History of Problems with Anesthesia: No History of Problems with Anesthesia: No NPO: Yes ASA Class: II Final Preanesthetic Review: No Changes in Pt Med Stat, Meds/Allgs Chart Reviewed, Consent Obtained/Reviewed and Anes Risks/Benef Reviewed Patient Risk: Low Procedure Risk: Low Anesthetic Plan Anesthetic Plan: GA Disposition: Standard PACU
[2022-02-22] VITALS (10 sets, daily range): BP systolic 110–134; BP diastolic 72–92; PULSE 72–83; RESP 14–18; TEMP 36.8–36.9; O2SAT 92–96
[2022-02-22 12:19] LABS: Glucose, Whole Blood 105 mg/dL (60-115)
[2022-02-22] MEDS: Lactated Ringers 1,000 ML 100 ML IVCONT (12:19)
[2022-02-22] MEDS: Ketorolac Tromethamine 30 MG/ML VIAL IVPUSH (15:13)
[2022-02-22] MEDS: Acetaminophen 325 MG TABLET 975 MG PO (15:13)
--- NOTE | 2022-02-22 16:06 | PM.OP ---
Brief Operative Note Date of Service: 02/22/22 Pre-op diagnosis: right femur osteochondroma Post-op diagnosis: same Procedure: Ostectomy right femur Surgeon: Power Gorman MD Anesthesia: GETA and local Was an Electrical Development Engineer used for this Procedure?: Yes Electrical Development Engineer: Beltran Salcedo Estimated blood loss (mL): 25 IV fluids (mL): 500 Pathology: other Condition: stable Disposition: PACU
--- NOTE | 2022-02-23 10:23 | W.PM.OPN ---
Operative Note Operative Note Date of Service: 02/23/22 Narrative: Date of Service: 02/22/22 Pre-op diagnosis: right femur osteochondroma Post-op diagnosis: same Procedure: Ostectomy right femur Surgeon: Power Gorman MD Anesthesia: GETA and local Was an Loss Prevention And Safety Manager used for this Procedure?: Yes Loss Prevention And Safety Manager: Beltran Salcedo Estimated blood loss (mL): 25 IV fluids (mL): 500 Pathology: other Condition: stable Disposition: PACU Indications: This is a 51-year-old gentleman with a prominent and chondroma of the right distal femur that continue to irritate his soft tissues with activity. MRI imaging suggested benign enchondroma. I discussed removal with the patient and the possibility of recurrence. He expressed understanding. Procedure in detail: Patient was brought to the operating room and placed supine on the surgical table. She was prepped and draped in standard sterile fashion and a time out was called to indentify proper site, proper procedure and IV antibiotics per weight were administered. I began by localizing the lesion to anterolateral aspect distal. A 4 5 cm incision made over the anterolateral femur. Prior to this the tourniquet was insufflated to 300 mm Hg. The fascia over the vastus lateralis was incised in line with the skin incision. Self retaining retractor was placed and the fascia was incised. I then digitally spread between the vastus and the rectus down to periosteum. The osteochondroma was encountered with cartilage cap. I used a combination of rongeur and osteotomes to remove the osteochondroma. I was cautious not to remove the entirety of the lesion given the defect would leave in the femur. At therefore once I had removed the cartilage cap in the majority of the protruding portion of the growth I irrigated copiously. I then placed bone wax over the bleeding bone. Tourniquet was let down. There was no brisk bleeding. The fascia over the vastus lateralis was left open and the skin was closed with absorbable suture and tiffanie. Patient was placed in a sterile dressing extubated brought to recovery room in stable condition. Approximately 20 mL of Marcaine was injected over the area of the incision prior to placement of sterile dressings. There were no known complications. CPT: 70970
== END 2022-02-22 17:05 | disposition home or self-care (01) ==
PROVIDERS: PCP Internal Medicine; Visit Provider Orthopaedic Surgery
PROC: (CPT 27355; principal; 2022-02-22 13:30)
DX: D16.21 Benign neoplasm of long bones of right lower limb (principal); G47.30 Sleep apnea, unspecified; F33.0 Major depressive disorder, recurrent, mild; F41.8 Other specified anxiety disorders; E78.5 Hyperlipidemia, unspecified; E11.9 Type 2 diabetes mellitus without complications; I10 Essential (primary) hypertension; Z79.84 Long term (current) use of oral hypoglycemic drugs; Z79.899 Other long term (current) drug therapy; Z88.8 Allergy status to other drugs, medicaments and biological substances; Z87.891 Personal history of nicotine dependence
CPT/HCPCS: 27355; 82947; 88304; 88307; 88311; J0690; J1100; J1170; J1885; J2795

== ENCOUNTER 2022-03-04 07:34 | Outpatient (REF) | payer OTHER, SELFPAY ==
--- NOTE | ~2022-03-04 | XR_ITS ---
EXAMINATION: XR FEMUR, RIGHT CLINICAL INFORMATION: Benign neoplasm of lung bones. COMPARISON: MRI knee 12/02/2021. Right femur 10/05/2021. TECHNIQUE: AP and lateral views of the right femur were obtained. FINDINGS: Previously seen osteochondroma along the anterolateral aspect of the right distal femur has been surgically removed with maintained cortical density. There is a small hypodensity seen in the distal medullary bone marrow similar previous study, stable. Punctate calcifications are seen within the lateral soft tissues of right leg. XR/XR femur RT 2V . IMPRESSION: Interval surgical removal of osteochondroma along the anterolateral aspect of distal femur. No other bony abnormality seen. There are punctate soft tissue calcifications lateral to the surgical site.
== END 2022-03-04 07:35 | disposition home or self-care (01) ==
LOC: HO.HOSX 07:34
PROVIDERS: Visit Provider Physician Assistant
DX: D16.21 Benign neoplasm of long bones of right lower limb (principal)
CPT/HCPCS: 73552

== ENCOUNTER 2022-03-26 08:11 | Emergency (ER) | payer OTHER, SELFPAY ==
[2022-03-26] VITALS (10 sets, daily range): BP systolic 111–171; BP diastolic 84–105; PULSE 82–106; RESP 16–18; TEMP 36.4–37.1; O2SAT 95–99; BMI 32.5
--- NOTE | ~2022-03-26 | XR_ITS ---
EXAMINATION: XR FEMUR-RIGHT XR KNEE-RIGHT CLINICAL INFORMATION: Status post ORIF COMPARISON: Right femur done on 03/04/2022 and 10/05/2021 TECHNIQUE: 2 views of the right femur and right knee were obtained. Total of 5 images. FINDINGS: Minimally displaced oblique fracture is present at the surgical bed at distal right femur with superimposed ORIF showing intact hardware and satisfactory alignment. Both the fracture and the ORIF are new since the prior study dated 03/04/2022. The right knee alignment is intact. Small right knee joint effusion is present. Multiple radiopaque sutures are present around the right knee and at superolateral aspect of the right thigh. XR/XR knee RT 2V IMPRESSION: Postsurgical changes involving the right femur showing intact hardware and satisfactory alignment. Intact right knee.
--- NOTE | ~2022-03-26 | NM_ITS ---
PULMONARY PERFUSION ONLY STUDY: CLINICAL INDICATION: Elevated d-dimer. Known kidney disease. PROCEDURE: Following the intravenous administration of 5.0 millicuries technetium 99m MAA, images of the chest were obtained in multiple projections using a gamma scintiphotographic camera. COMPARISON: Chest radiograph done earlier today. PERFUSION IMAGES: No segmental perfusion defects or other perfusion abnormalities are noted. NM/NM pul perfusion IMPRESSION: Based on perfusion only modified PIOPED 2 criteria, pulmonary thromboembolism is absent.
--- NOTE | ~2022-03-26 | XR_ITS ---
EXAMINATION: XR CHEST CLINICAL INFORMATION: Back pain. COMPARISON: None TECHNIQUE: 2 views of the chest were obtained. FINDINGS: No significant abnormality is noted involving the heart, lungs, mediastinum, bony thorax or soft tissues. XR/XR chest 2V IMPRESSION: Unremarkable examination.
--- NOTE | ~2022-03-26 | CT_ITS ---
EXAMINATION: CT ABDOMEN AND PELVIS WITHOUT CONTRAST CLINICAL INFORMATION: Abdominal pain. COMPARISON: None TECHNIQUE: Multidetector volumetric imaging was performed from the superior aspect of the liver through the pubic symphysis. Sagittal and coronal reformatted images were obtained on the technologist's workstation. This CT examination was performed using dose optimization techniques as appropriate, variously including the following: *Automated exposure control *Adjustment of mA and/or kV according to patient size (this includes techniques or standardized protocols for targeted exams where dose is matched to indication/reason for exam; i.e. extremities or head) *Use of iterative reconstruction technique DLP: 686 mGy-cm FINDINGS: LUNG BASES: The lung bases appear clear, with no evidence of inflammation or nodules. LIVER, GALLBLADDER, AND BILIARY TREE: The liver appears unremarkable in size, shape, and attenuation. No focal hepatic lesion or biliary ductal dilatation is appreciated. Suspect layering gallbladder sludge and/or stones. No evidence of gallbladder wall thickening or pericholecystic inflammatory change. PANCREAS: Unremarkable SPLEEN: Unremarkable ADRENAL GLANDS: Unremarkable KIDNEYS AND URETERS: Left kidney not visualized. Compensatory hypertrophy of the right kidney. Two, approximately 2 mm distal right ureteral stones located approximately 1-1.5 cm above the right UVJ (images 74 and 75, axial series 3; images 50 and 69, coronal series 5). Associated mild right hydronephrosis and hydroureter. Right perinephric stranding. Approximately 7 mm, nonobstructing right lower pole collecting system stone. BLADDER: Unremarkable GASTROINTESTINAL TRACT: Unremarkable appearance of the stomach and small bowel. Few colonic diverticula, without evidence of diverticulitis. Normal-appearing distal ileum and vermiform appendix. ABDOMINAL WALL: No significant hernia is appreciated. LYMPH NODES: No evidence of adenopathy by size criteria. VASCULAR: Unremarkable PELVIC VISCERA: Unremarkable OSSEOUS STRUCTURES: Mild lumbar levocurvature. Status post right femoral intramedullary fixation lela placement. Overlying surgical skin tiffanie and subcutaneous edema. CT/CT abdomen pelvis wo IV con IMPRESSION: Left kidney not visualized, possibly representing congenital absence. Compensatory hypertrophy of the right kidney. Two, approximately 2 mm distal right ureteral stones with associated mild right hydronephrosis and hydroureter. Right perinephric stranding. Approximately 7 mm, nonobstructing right lower pole collecting system stone.
--- NOTE | ~2022-03-26 | XR_ITS ---
EXAMINATION: XR FEMUR-RIGHT XR KNEE-RIGHT CLINICAL INFORMATION: Status post ORIF COMPARISON: Right femur done on 03/04/2022 and 10/05/2021 TECHNIQUE: 2 views of the right femur and right knee were obtained. Total of 5 images. FINDINGS: Minimally displaced oblique fracture is present at the surgical bed at distal right femur with superimposed ORIF showing intact hardware and satisfactory alignment. Both the fracture and the ORIF are new since the prior study dated 03/04/2022. The right knee alignment is intact. Small right knee joint effusion is present. Multiple radiopaque sutures are present around the right knee and at superolateral aspect of the right thigh. XR/XR femur RT 2V IMPRESSION: Postsurgical changes involving the right femur showing intact hardware and satisfactory alignment. Intact right knee.
--- NOTE | ~2022-03-26 | FL_ITS ---
EXAMINATION: XR FLUOROSCOPY WITH IMAGES CLINICAL INFORMATION: Right kidney stone. COMPARISON: CT abdomen of 03/26/2022. TECHNIQUE: Fluoroscopy performed by Dr. Sarmad Davis. Fluoroscopy time: 38.4 seconds. Cumulative Dose: 12.38 mGy. Images: 3. FINDINGS: 1 image and demonstrates contrast injected within the distal aspect of the right ureter without definite filling defect in this portion. Right ureteral stent is seen in place on the other 2 films. FL/FL guidance in OR IMPRESSION: Intraoperative fluoroscopy for urologic procedure.
--- NOTE | 2022-03-26 08:30 | ED.MALEGU ---
HPI - Male Genitourinary General Chief complaint: Urogenital-Male Stated complaint: infection on leg after surgery/pain in urine Time Seen by Provider: 03/26/22 08:30 Source: patient and family () Mode of arrival: ambulatory Limitations: no limitations History of Present Illness HPI Narrative: Patient is a 51 year old male presenting to the emergency department today with back pain. Patient states that starting last night he noticed some blood in his urine and now he feels like he cannot urinate and is having a lot of back pain. Patient states that he had a right femur fracture that he had repaired at [facility] earlier this month. Patient states that he has been taking his lovenox as prescribed. 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 Patient states that the last time he was able to urinate was at 0500 and it wasn't very much. Patient states that he has never had kidney stones before. Patient denies any dizziness, lightheadedness, nausea, vomiting, fever, chills, blurry vision, double vision, loss of vision, chest pain, difficulty breathing, shortness of breath, night sweats, increased urinary frequency, blood in his stool, syncope or a near syncopal episode, recent trauma or falls, bowel incontinence, bladder incontinence, bowel retention, or any other complaints at this time. Onset (ago): hour(s) Duration: constant Severity: moderate Severity scale (1-10): 6 Quality: stabbing Relieving factors: none Exacerbating factors: none Context: recent surgery Associated symptoms: Reports urinary retention and blood in urine Related Data Home Medications Medication Instructions Recorded Confirmed clonazepam 1 mg tablet 1 mg PO BEDTIME PRN Anxiety 05/25/20 03/26/22 omeprazole 20 mg capsule,delayed 20 mg PO QAM 01/05/22 03/26/22 release acetaminophen 325 mg tablet 2 tab PO Q6H 03/26/22 03/26/22 dulaglutide 0.75 mg/0.5 mL 0.75 mg subcut SA 03/26/22 03/26/22 subcutaneous pen injector (Trulicity) enoxaparin 40 mg/0.4 mL 1 syringe subcut DAILY 03/26/22 03/26/22 subcutaneous syringe oxycodone 10 mg tablet 0.5 - 1 tab PO Q4-6H PRN moderate 03/26/22 03/26/22 pain sennosides 8.6 mg tablet (senna) 2 tab PO BEDTIME PRN constipation 03/26/22 03/26/22 Previous Rx's Medication Instructions Recorded blood-glucose meter (FreeStyle #1 ea 08/25/21 Lite Meter kit) atorvastatin 20 mg tablet 20 mg PO DAILY #90 tabs 11/10/21 lancets 28 gauge (FreeStyle #100 ea 01/18/22 Lancets) flash glucose scanning reader #1 ea 02/04/22 (FreeStyle Yuki 2 Amonate) flash glucose sensor #1 ea 02/08/22 flash glucose sensor (FreeStyle #1 ea 02/14/22 Yuki 2 Sensor kit) flash glucose sensor (FreeStyle #2 ea 02/24/22 Yuki 2 Sensor kit) amlodipine 10 mg tablet 10 mg PO DAILY #90 tabs 03/11/22 metformin 500 mg tablet,extended 500 mg PO BID 90 days #180 tabs 03/11/22 release 24 hr blood sugar diagnostic (FreeStyle #100 ea 03/23/22 Lite Strips) phenazopyridine 100 mg tablet 100 mg PO TID PRN spasm 4 days #12 03/26/22 (Pyridium) tabs tamsulosin 0.4 mg capsule 0.4 mg PO BEDTIME spasm 14 days 03/26/22 #14 caps Allergies Allergy/AdvReac Type Severity Reaction Status Date / Time lisinopril Allergy Severe anaphylaxis Verified 03/04/22 10:44 gabapentin AdvReac Intermediate leg edema Verified 03/04/22 10:44 Review of Systems Constitutional: Constitutional: Reports no additional constitutional complaints, Denies chills, Denies fever(s) and Denies night sweats Eyes: Eyes: Reports no additional eye complaints, Denies blurry vision, Denies change in vision, Denies diplopia, Denies eye discharge, Denies loss of vision and Denies eye pain ENT: Denies dizziness Cardiovascular: Cardiovascular: Reports no additional cardiovascular complaints, Denies chest pain, Denies lightheadedness, Denies Loss of Consciousness and Denies dyspnea Respiratory: Respiratory: Reports no additional respiratory complaints and Denies dyspnea Gastrointestinal: Gastrointestinal: Reports no additional gastrointestinal complaints, Denies abdominal pain, Denies melena, Denies hematochezia, Denies change in bowel habits and Denies change in stool character Genitourinary: Genitourinary: Reports no additional male genitourinary complaints, Reports hematuria, Reports oliguria, Denies difficulty urinating, Denies dysuria, Denies urinary frequency, Denies urinary hesitancy, Denies urinary incontinence and Reports urinary urgency Musculoskeletal: Musculoskeletal: Reports no additional musculoskeletal complaints, Reports back pain, Denies numbness and Denies tingling Neurologic: Denies dizziness, Denies loss of vision, Denies numbness and Denies tingling Psychiatric: Psychiatric: Reports no additional psychiatric complaints Endocrine: Endocrine: Reports no additional endocrine complaints Hematologic/Lymphatic: Hematologic/Lymphatic: Reports no additional hematologic/lymphatic complaints Allergic/Immunologic: Allergic/Immunologic: Reports no additional allergic/immunologic complaints [facility] Past Medical History Attestation statement: The following information was validated with the patient. Source: old records reviewed Medical History Chronic sore throat Daytime somnolence Depression with anxiety Diabetes mellitus Dyslipidemia Elevated TSH Essential hypertension Family history of throat cancer Insomnia Mild asthma Mild recurrent major depression Nocturnal hypoxemia Obesity (BMI 35.0-39.9 without comorbidity) SRINI (obstructive sleep apnea) Polyarthralgia Screen for colon cancer Shortness of breath Surgical History Donor, kidney History of circumcision Family History Family History Father Liver problem Mother Diabetes Hypertension Stroke Brother Throat cancer Family/Other Mental health disorder Social History Social History Housing: Apartment Alcohol intake: former Patient Tobacco Use Status: Former Tobacco user Quit Date: 2007 Tobacco use type: Cigarette e-Cigarette/Vaping Use: Never Used Second Hand Smoke Exposure: No Use of substances other than those prescribed or required for medical reasons: No Advance Directives: Yes Advance Directives Information Provided: Yes Advance Directives on File: No service: No Current occupational status: disabled Current occupation: left hand Cognitive needs: No Hearing needs: No Vision needs: No Physical Exam Vital Signs: Vital Signs: Last Vital Signs Temp 97.5 F 03/26/22 16:10 Pulse 98 03/26/22 16:10 Resp 17 03/26/22 16:10 BP 147/90 H 03/26/22 16:10 Pulse Ox 96 03/26/22 16:10 O2 Del Method 03/26/22 16:10 O2 Flow Rate 2 03/26/22 15:30 BMI result Body Mass Index 32.5 Const: General: cooperative, no acute distress, alert and awake Nutritional Appearance: well nourished Orientation/consciousness: patient oriented x3 Limitations: no limitations HEENT: Head: Yes normal to inspection and Yes atraumatic Ears: hearing grossly normal bilaterally and external ears normal General nose exam: Normal external nose present, no nasal discharge noted and no epistaxis Face and sinus: Yes normal facial exam, No abrasion and No laceration Mouth: Normal oral and palatal mucosa present, no drooling and no muffled voice Eyes: General: appearance normal, both eyes and all related structures Periorbital: periorbital findings normal Eyelids: Yes eyelids normal Conjunctivae: conjunctivae normal Pupils: Equal, round and reactive pupils present EOM: EOMs intact bilaterally Neck: Neck: Yes normal visual inspection, Yes full ROM and Yes no lymphadenopathy Chest: Chest palpation & inspection: normal inspection of the chest Resp: Effort & Inspection: normal respiratory effort and able to speak in complete sentences Auscultation: clear to auscultation bilaterally Cardio: Rate: regular rate Rhythm: regular rhythm GI: Inspection: Yes normal to inspection : General: Yes CVA tenderness (right sided) Back/Spine/Pelvis: Back: CVA tenderness (right sided) Cervical Spine: normal cervical lordosis and cervical ROM normal Thoracic/Lumbar Spine: thoracic and lumbar spine normal to inspection Neuro: General: patient oriented x3 and moves all extremities Cranial nerves: Yes Equal, round and reactive pupils present Cognition (Neuro): normal cognition Motor exam (neuro): 5/5 motor strength present throughout Sensory Exam: Normal double simultaneous stimulation for sensation Coordination: [id number] test normal Extrem: Other: appropriately healing surgical scar to the right femur General: Yes full ROM and Yes capillary refill normal Psych: Appearance: grossly normal Mental Status: mental status grossly normal Affect: normal affect Attitude: cooperative Thought process: Normal thought process present Thought content: Normal thought content present Insight: Good insight present (Psych) Course Consultations Consultation #1: Spoke to Dr. Davis via [place] text who recommended giving the patient this regimen: Doxazosin 8mg Prednisone 20mg Belladonna suppository 2 list NS IV Lasix 10mg States to start there and reasses in 2 hours. Time: 11:01 MDM - Male Genitourinary MDM Narrative Medical decision making narrative: Patient is a 51 year old male presenting to the emergency department today with back pain. Patient's physical exam showed right sided CVS tenderness. Patient's blood work showed an elevated WBC count of 13.4, BUN of 26, and CR of 1.82. Patient's d dimer was significantly elevated at 2,768. Patient was unable to urinate. Patient's chest x-ray showed no acute process. Patient's VQ scan showed no acute process. Patient's abdominal CT showed two 2mm stones in the right kidney causing mild hydronephrosis and hydroureter. Additionally, 7mm stone in the right collecting duct. I spoke to Dr. Davis who recommended a regimen of medication as documented in the consultation portion of this chart. After those medications and 2 hours, the patient was still not able to urinate. Dr. Davis decided that he would take the patient to the OR for a stent to be placed. The patient was not clinically sepsis and I did not ever consider the patient to be septic. I explained my physical exam findings as well as all test results to the patient. I answered all questions asked by the patient. Patient verbalized agreement and understanding with this treatment plan and admission. Medical Records Attestation: I reviewed the patient's medical records. Lab Data Attestation: I reviewed the patient's lab results. Result diagrams: 03/26/22 09:16 03/26/22 09:16 Labs: Lab Results 03/26/22 03/26/22 03/26/22 Range/Units 09:16 09:16 09:16 WBC 13.4 H (4.8-10.8) X10*3/uL RBC 4.29 L (4.60-5.80) X10*6/uL Hgb 12.4 L (14.0-18.0) g/dl Hct 37.2 L (42.0-52.0) % MCV 86.7 (80.0-98.0) fL MCH 28.9 (27.0-33.0) pg MCHC 33.3 (31.0-36.0) g/dl RDW 12.7 (11.0-16.0) % Plt Count 334 (160-400) X10*3/uL MPV 9.3 L (9.4-12.4) fL Immature Gran % (Auto) 1.0 H (0.0-0.4) % Neut % (Auto) 72.4 (45-73) % Lymph % (Auto) 14.1 L (20-40) % [place] % (Auto) 10.0 (2-11) % Eos % (Auto) 1.8 (0-4) % Baso % (Auto) 0.7 (0-2) % Lymph # (Auto) 1.9 (1.2-4.9) X10*3/uL [place] # (Auto) 1.4 H (0.1-1.2) X10*3/uL Eos # (Auto) 0.2 (0.0-0.4) X10*3/uL Baso # (Auto) 0.1 (0.0-0.2) X10*3/uL Abs Immat Gran (auto) 0.14 H (0.00-0.03) X10*3/uL Absolute Neuts (auto) 9.7 H (2.0-8.3) x10*3/uL Absolute Nucleated RBC 0.000 (0.0-0.012) X10*3/uL Nucleated RBC % (auto) 0.0 (0.0-0.2) /100WBC APTT (26.0-36.4) SEC D-Dimer High Sensitivty NG/ML Sodium 136 (135-145) mmol/L Potassium 3.6 (3.3-5.1) mmol/L Chloride 98 (96-108) mmol/L Carbon Dioxide 25 (22-29) mmol/L Anion Gap 17 (12-20) BUN 26 H D (9-16) mg/dL Creatinine 1.82 H (0.5-1.4) mg/dL Estim Creat Clear Calc 58.3 Estimated GFR 40 Random Glucose 183 H (60-115) mg/dL Lactic Acid 1.2 (0.5-2.0) mmol/L Calcium 9.3 (8.4-10.2) mg/dL Magnesium 2.1 (1.6-2.6) mg/dL Total Bilirubin 1.4 H (0.0-1.0) mg/dL AST 30 D (5-37) U/L ALT 31 (0-40) U/L Alkaline Phosphatase 130 H D (39-117) U/L Total Protein 7.2 (6.5-8.0) g/dL Albumin 3.8 (3.5-5.0) g/dL COVID-19 (PAULO) (Negative) COVID-19 Clin Com 03/26/22 03/26/22 Range/Units 09:16 12:46 WBC (4.8-10.8) X10*3/uL RBC (4.60-5.80) X10*6/uL Hgb (14.0-18.0) g/dl Hct (42.0-52.0) % MCV (80.0-98.0) fL MCH (27.0-33.0) pg MCHC (31.0-36.0) g/dl RDW (11.0-16.0) % Plt Count (160-400) X10*3/uL MPV (9.4-12.4) fL Immature Gran % (Auto) (0.0-0.4) % Neut % (Auto) (45-73) % Lymph % (Auto) (20-40) % [place] % (Auto) (2-11) % Eos % (Auto) (0-4) % Baso % (Auto) (0-2) % Lymph # (Auto) (1.2-4.9) X10*3/uL [place] # (Auto) (0.1-1.2) X10*3/uL Eos # (Auto) (0.0-0.4) X10*3/uL Baso # (Auto) (0.0-0.2) X10*3/uL Abs Immat Gran (auto) (0.00-0.03) X10*3/uL Absolute Neuts (auto) (2.0-8.3) x10*3/uL Absolute Nucleated RBC (0.0-0.012) X10*3/uL Nucleated RBC % (auto) (0.0-0.2) /100WBC APTT 28.9 (26.0-36.4) SEC D-Dimer High Sensitivty 2768 NG/ML Sodium (135-145) mmol/L Potassium (3.3-5.1) mmol/L Chloride (96-108) mmol/L Carbon Dioxide (22-29) mmol/L Anion Gap (12-20) BUN (9-16) mg/dL Creatinine (0.5-1.4) mg/dL Estim Creat Clear Calc Estimated GFR Random Glucose (60-115) mg/dL Lactic Acid (0.5-2.0) mmol/L Calcium (8.4-10.2) mg/dL Magnesium (1.6-2.6) mg/dL Total Bilirubin (0.0-1.0) mg/dL AST (5-37) U/L ALT (0-40) U/L Alkaline Phosphatase (39-117) U/L Total Protein (6.5-8.0) g/dL Albumin (3.5-5.0) g/dL COVID-19 ([facility]) Negative (Negative) COVID-19 Clin Com See Note Imaging Data CT scan - abdomen: Attestation: I personally reviewed and interpreted this imaging study as follows: My impression: Multiple stones in right kidney. Radiologist's impression: EXAMINATION: CT ABDOMEN AND PELVIS WITHOUT CONTRAST? CLINICAL INFORMATION: Abdominal pain.? COMPARISON: None? TECHNIQUE: Multidetector volumetric imaging was performed from the superior aspect of the liver through the pubic symphysis. Sagittal and coronal reformatted images were obtained on the technologist's workstation.? This CT examination was performed using dose optimization techniques as appropriate, variously including the following: *Automated exposure control *Adjustment of mA and/or kV according to patient size (this includes techniques or standardized protocols for targeted exams where dose is matched to indication/reason for exam; i.e. extremities or head) *Use of iterative reconstruction technique DLP: 686 mGy-cm FINDINGS: LUNG BASES: The lung bases appear clear, with no evidence of inflammation or nodules.? LIVER, GALLBLADDER, AND BILIARY TREE: The liver appears unremarkable in size, shape, and attenuation. No focal hepatic lesion or biliary ductal dilatation is appreciated. Suspect layering gallbladder sludge and/or stones. No evidence of gallbladder wall thickening or pericholecystic inflammatory change.? PANCREAS: Unremarkable? SPLEEN: Unremarkable? ADRENAL GLANDS: Unremarkable? KIDNEYS AND URETERS: Left kidney not visualized. Compensatory hypertrophy of the right kidney. Two, approximately 2 mm distal right ureteral stones located approximately 1-1.5 cm above the right UVJ (images 74 and 75, axial series 3; images 50 and 69, coronal series 5). Associated mild right hydronephrosis and hydroureter. Right perinephric stranding. Approximately 7 mm, nonobstructing right lower pole collecting system stone. BLADDER: Unremarkable? GASTROINTESTINAL TRACT: Unremarkable appearance of the stomach and small bowel. Few colonic diverticula, without evidence of diverticulitis. Normal-appearing distal ileum and vermiform appendix.? ABDOMINAL WALL: No significant hernia is appreciated.? LYMPH NODES: No evidence of adenopathy by size criteria. VASCULAR: Unremarkable PELVIC VISCERA: Unremarkable OSSEOUS STRUCTURES: Mild lumbar levocurvature. Status post right femoral intramedullary fixation lela placement. Overlying surgical skin tiffanie and subcutaneous edema. CT/CT abdomen pelvis wo IV con IMPRESSION: ? Left kidney not visualized, possibly representing congenital absence. Compensatory hypertrophy of the right kidney. Two, approximately 2 mm distal right ureteral stones with associated mild right hydronephrosis and hydroureter. Right perinephric stranding. ? Approximately 7 mm, nonobstructing right lower pole collecting system stone. Dictated By: Hiram Gould Signed By: Electronically signed by Johnny 03/26/22 1036 Chest x-ray: Attestation: I personally reviewed and interpreted this imaging study as follows: My impression: No acute process. Radiologist's impression: EXAMINATION: XR CHEST CLINICAL INFORMATION: Back pain. COMPARISON: None TECHNIQUE: 2 views of the chest were obtained. FINDINGS: No significant abnormality is noted involving the heart, lungs, mediastinum, bony thorax or soft tissues. XR/XR chest 2V IMPRESSION: Unremarkable examination. Dictated By: Hiram Gould Signed By: Electronically signed by Hiram Gould 03/26/22 1301 VQ Scan: Attestation: I personally reviewed and interpreted this imaging study as follows: My impression: No PE. Radiologist's impression: PULMONARY PERFUSION ONLY STUDY: CLINICAL INDICATION: Elevated d-dimer. Known kidney disease. PROCEDURE:? Following the intravenous administration of 5.0 millicuries technetium 99m MAA, images of the chest were obtained in multiple projections using a gamma scintiphotographic camera. COMPARISON: Chest radiograph done earlier today. PERFUSION IMAGES: No segmental perfusion defects or other perfusion abnormalities are noted. NM/NM pul perfusion IMPRESSION: Based on perfusion only modified PIOPED 2 criteria, pulmonary thromboembolism is absent. Dictated By: Juan Carlos Ramirez MD Signed By: Electronically signed by Juan Carlos Ramirez MD 03/26/22 8530 Critical Care Time Critical Care Time Critical Care Time: Yes Total Critical Care Time: 30 Attestation: I spent 30 minutes of Critical Care Time with this patient. This does not include time spent on separately reported billable procedures. Discharge Plan Discharge Clinical Impression: Calculus, renal Patient Disposition: Home, Self-Care Instructions: Ureteral Stones (DC), Ureteral Stent Placement (DC) Prescriptions: New phenazopyridine [Pyridium] 100 mg tablet 100 mg PO TID PRN (Reason: spasm) 4 Days Qty: 12 0RF tamsulosin 0.4 mg capsule 0.4 mg PO BEDTIME 14 Days Qty: 14 0RF Continued (DME) blood-glucose meter [FreeStyle Lite Meter] Kit See Rx Instructions .Route Qty: 1 0RF Rx Instructions: Test Daily atorvastatin 20 mg tablet 20 mg PO DAILY Qty: 90 1RF (DME) lancets [FreeStyle Lancets] 28 gauge misc See Rx Instructions .Route Qty: 100 0RF Rx Instructions: Test Daily (DME) FreeStyle Yuki 2 Amonate Misc See Rx Instructions .Route Qty: 1 1RF Rx Instructions: As directed (DME) flash glucose sensor Kit See Rx Instructions .Route Qty: 1 0RF Rx Instructions: As directed (DME) FreeStyle Yuki 2 Sensor Kit See Rx Instructions .Route Qty: 1 0RF Rx Instructions: As directed (DME) FreeStyle Yuki 2 Sensor Kit See Rx Instructions .Route Qty: 2 3RF Rx Instructions: As directed metformin 500 mg tablet extended release 24 hr 500 mg PO BID 90 Days Qty: 180 3RF amlodipine 10 mg tablet 10 mg PO DAILY Qty: 90 1RF (DME) FreeStyle Lite Strips Strip See Rx Instructions .Route Qty: 100 0RF Rx Instructions: Test Daily sennosides [senna] 8.6 mg tablet 2 tab PO BEDTIME PRN (Reason: constipation) acetaminophen 325 mg tablet 2 tab PO Q6H enoxaparin 40 mg/0.4 mL syringe 1 syringe subcut DAILY oxycodone 10 mg tablet 0.5 - 1 tab PO Q4-6H PRN (Reason: moderate pain) Trulicity 0.75 mg/0.5 mL pen injector 0.75 mg subcut SA clonazepam 1 mg tablet 1 mg PO BEDTIME PRN (Reason: Anxiety) omeprazole 20 mg capsule,delayed release(DR/EC) 20 mg PO QAM Referrals: Sarmad Davis MD [Physician] - 1 week (stent removal) Asuncion Clifton MD [Primary Care Provider] - Print Language: Malay
[2022-03-26 09:21] LABS: MANUAL DIFF FLAG NO
[2022-03-26 09:22] LABS: Basophils Absolute Auto 0.1 X10*3/uL (0.0-0.2); Basophils Percent Auto 0.7 % (0-2); Eosinophils Absolute Auto 0.2 X10*3/uL (0.0-0.4); Eosinophils Percent Auto 1.8 % (0-4); Hematocrit 37.2 % (42.0-52.0); Hemoglobin 12.4 g/dl (14.0-18.0); Imm Gran Abs Auto 0.14 X10*3/uL (0.00-0.03); Lymphocytes Absolute Auto 1.9 X10*3/uL (1.2-4.9); Lymphocytes Percent Auto 14.1 % (20-40); Mean Corpuscular HGB Conc 33.3 g/dl (31.0-36.0); Mean Corpuscular Hemoglobin 28.9 pg (27.0-33.0); Mean Corpuscular Volume 86.7 fL (80.0-98.0); Mean Platelet Volume 9.3 fL (9.4-12.4); Monocytes Absolute Auto 1.4 X10*3/uL (0.1-1.2); Neutrophils Absolute Auto 9.7 x10*3/uL (2.0-8.3); Neutrophils Percent Auto 72.4 % (45-73); Platelet Count 334 X10*3/uL (160-400); Red Blood Count 4.29 X10*6/uL (4.60-5.80); Red Cell Distribution Width 12.7 % (11.0-16.0); White Blood Count 13.4 X10*3/uL (4.8-10.8)
[2022-03-26] MEDS: ondansetron HCL 4 MG/2 ML VIAL IVPUSH (09:23)
[2022-03-26] MEDS: Morphine Sulfate 4 MG/ML CARTRIDGE IVPUSH ×2 (09:23→14:09)
[2022-03-26] MEDS: 0.9 % Sodium Chloride 1,000 ML 150 ML IVCONT (09:24)
[2022-03-26 09:31] LABS: Partial Thromboplastin Time 28.9 SEC (26.0-36.4)
[2022-03-26 09:39] LABS: Lactic Acid 1.2 mmol/L (0.5-2.0)
[2022-03-26 09:44] LABS: Alanine Aminotransferase 31 U/L (0-40); Albumin Level 3.8 g/dL (3.5-5.0); Alkaline Phosphatase 130 U/L (39-117); Anion Gap 17 (12-20); Aspartate Amino Transferase 30 U/L (5-37); Bilirubin Total 1.4 mg/dL (0.0-1.0); Blood Urea Nitrogen 26 mg/dL (9-16); Calcium 9.3 mg/dL (8.4-10.2); Carbon Dioxide 25 mmol/L (22-29); Chloride 98 mmol/L (96-108); Creatinine Clr Calc Pharmacy 58.3; Estimated Glomerular Filt Rate 40; Glucose Random 183 mg/dL (60-115); Magnesium 2.1 mg/dL (1.6-2.6); Potassium 3.6 mmol/L (3.3-5.1); Sodium 136 mmol/L (135-145); Total Protein 7.2 g/dL (6.5-8.0)
--- NOTE | 2022-03-26 09:55 | PC.NURSE ---
Pt reports abd discomfort initially however now stating pain to mid low back. Reports difficulty urinating since this AM, bladder scan showing 85ml. IV established, labs sent, medicated as charted. Recent surgery to right leg, +CMS. Out of room for CT scan
[2022-03-26 10:33] LABS: D Dimer High Sensitivity 2768 NG/ML
[2022-03-26] MEDS: HYDROmorphone HCl 1 MG/ML SYRINGE IVPUSH (11:05)
[2022-03-26] MEDS: Doxazosin Mesylate 2 MG TABLET 8 MG PO (11:10)
[2022-03-26] MEDS: Furosemide 20 MG/2 ML VIAL 10 MG IVPUSH (11:10)
[2022-03-26] MEDS: predniSONE 20 MG TABLET PO (11:10)
--- NOTE | 2022-03-26 11:45 | PC.NURSE ---
Pt given meds as ordered. Monitoring for ability to void, if unable stent to be placed per Gregoria ANDREA and Urology. Pt appears more comfortable at this time, asleep. .Off unit to Nuc meds for VQ scan
[2022-03-26] MEDS: 0.9 % Sodium Chloride 2,000 ML 999 ML IV (12:31)
--- NOTE | 2022-03-26 12:34 | PC.NURSE ---
Pt asleep at this time. Fluids running.
[2022-03-26 13:08] LABS: COVID-19 Test Negative (Negative); IDNOW Serial# 16C4AD1C
[2022-03-26] MEDS: Enoxaparin Sodium 40 MG/0.4 ML SYRINGE SUBCUT (14:09)
--- NOTE | 2022-03-26 14:20 | PHA.MEDREC ---
Pharmacy Consult ? Medication Reconciliation Pharmacy has completed the medication reconciliation.
--- NOTE | 2022-03-26 14:31 | P.CNUR_ITS ---
History of Present Illness Consult details Consult date: 03/26/22 Narrative: Consulting complaint distal right ureteric stone 51-year-old male Prior renal graft donor Solitary kidney Right-sided flank pain that started 2 days ago. Associated with nausea. No vomiting. No hematuria. No dysuria. No prior history of stones Unable to urinate Found to have no urine in bladder Imaging shows 2 mm distal right ureteric stone Laboratories consistent with acute obstruction creatinine 1.8 from baseline 1.0 Recommend cystoscopy with right retrograde and stent placement Review of Systems Constitutional: Constitutional: Reports as per HPI and Reports no additional constitutional complaints Cardiovascular: Cardiovascular: Reports as per HPI and Reports no additional cardiovascular complaints Respiratory: Respiratory: Reports as per HPI and Reports no additional respira tory complaints Gastrointestinal: Gastrointestinal: Reports as per HPI and Reports no additional gastrointestinal complaints Genitourinary: Genitourinary: Reports as per HPI Musculoskeletal: Musculoskeletal: Reports no additional musculoskeletal complaints and Reports as per HPI Neurologic: Reports system reviewed and no additional complaints, except as documented and Reports as per HPI [facility] Past Medical History Medical History Chronic sore throat Daytime somnolence Depression with anxiety Diabetes mellitus Dyslipidemia Elevated TSH Essential hypertension Family history of throat cancer Insomnia Mild asthma Mild recurrent major depression Nocturnal hypoxemia Obesity (BMI 35.0-39.9 without comorbidity) SRINI (obstructive sleep apnea) Polyarthralgia Screen for colon cancer Shortness of breath Family History Family History Father Liver problem Mother Diabetes Hypertension Stroke Brother Throat cancer Family/Other Mental health disorder Surgical History Surgical History Donor, kidney History of circumcision Social History Social History Housing: Apartment Alcohol intake: former Patient Tobacco Use Status: Former Tobacco user Quit Date: 2007 Tobacco use type: Cigarette e-Cigarette/Vaping Use: Never Used Second Hand Smoke Exposure: No Use of substances other than those prescribed or required for medical reasons: No Advance Directives: Yes Advance Directives Information Provided: Yes Advance Directives on File: No service: No Current occupational status: disabled Current occupation: left hand Cognitive needs: No Hearing needs: No Vision needs: No Meds Allergies Allergy/AdvReac Type Severity Reaction Status Date / Time lisinopril Allergy Severe anaphylaxis Verified 03/04/22 10:44 gabapentin AdvReac Intermediate leg edema Verified 03/04/22 10:44 Active Medications: Current Medications Sodium Chloride (Ns) 1,000 mls @ 150 mls/hr IVCONT .Q6H40M KIMBERLY Last Admin: 03/26/22 09:24 Dose: 150 mls/hr Pharmacy Consult (Consult Rx Perform Med Rec) 1 each MISCELLANE ONCE PRN PRN Reason: Consult order Home Medications Medication Instructions Recorded Confirmed Last Taken Type clonazepam 1 mg tablet 1 mg PO BEDTIME PRN Anxiety 05/25/20 03/26/22 03/25/22 History omeprazole 20 mg capsule,delayed 20 mg PO QAM 01/05/22 03/26/22 03/26/22 History release acetaminophen 325 mg tablet 2 tab PO Q6H 03/26/22 03/26/22 03/26/22 History dulaglutide 0.75 mg/0.5 mL 0.75 mg subcut SA 03/26/22 03/26/22 03/19/22 History subcutaneous pen injector (Trulicity) enoxaparin 40 mg/0.4 mL 1 syringe subcut DAILY 03/26/22 03/26/22 03/25/22 History subcutaneous syringe oxycodone 10 mg tablet 0.5 - 1 tab PO Q4-6H PRN moderate 03/26/22 03/26/22 03/26/22 History pain sennosides 8.6 mg tablet (senna) 2 tab PO BEDTIME PRN constipation 03/26/22 03/26/22 03/26/22 History Physical Exam Vital Signs: Vital Signs: Last Vital Signs Temp 98.8 F 03/26/22 09:52 Pulse 90 03/26/22 14:12 Resp 16 03/26/22 14:12 BP 152/93 H 03/26/22 14:12 Pulse Ox 98 03/26/22 14:12 O2 Del Method 03/26/22 14:12 BMI result Body Mass Index 32.5 Const: General: cooperative, healthy appearing, comfortable and no acute distress Orientation/consciousness: patient oriented x3 HEENT: Face and sinus: Yes normal facial exam Mouth: moist mucous membranes Neck: Neck: Yes normal visual inspection, Yes full ROM and Yes trachea midline Chest: Chest palpation & inspection: normal inspection of the chest Resp: Effort & Inspection: normal respiratory effort, able to speak in complete sentences and no respiratory distress GI: Inspection: Yes normal to inspection Back/Spine/Pelvis: Cervical Spine: normal cervical lordosis Thoracic/Lumbar Spine: thoracic and lumbar spine normal to inspection Skin: General skin exam: no rashes or lesions noted Neuro: General: patient oriented x3, tone normal and moves all extremities Extrem: General: Yes normal to inspection and Yes capillary refill normal Results Labs Result diagrams: 03/26/22 09:16 03/26/22 09:16 Labs: Abnormal lab results 03/26/22 03/26/22 Range/Units 09:16 09:16 WBC 13.4 H (4.8-10.8) X10*3/uL RBC 4.29 L (4.60-5.80) X10*6/uL Hgb 12.4 L (14.0-18.0) g/dl Hct 37.2 L (42.0-52.0) % MPV 9.3 L (9.4-12.4) fL Immature Gran % (Auto) 1.0 H (0.0-0.4) % Lymph % (Auto) 14.1 L (20-40) % Moody # (Auto) 1.4 H (0.1-1.2) X10*3/uL Abs Immat Gran (auto) 0.14 H (0.00-0.03) X10*3/uL Absolute Neuts (auto) 9.7 H (2.0-8.3) x10*3/uL BUN 26 H D (9-16) mg/dL Creatinine 1.82 H (0.5-1.4) mg/dL Random Glucose 183 H (60-115) mg/dL Total Bilirubin 1.4 H (0.0-1.0) mg/dL Alkaline Phosphatase 130 H D (39-117) U/L Short CBC 03/26/22 Range/Units 09:16 WBC 13.4 H (4.8-10.8) X10*3/uL Hgb 12.4 L (14.0-18.0) g/dl Hct 37.2 L (42.0-52.0) % Plt Count 334 (160-400) X10*3/uL BMP 03/26/22 09:16 Sodium 136 Potassium 3.6 Chloride 98 Carbon Dioxide 25 BUN 26 H D Creatinine 1.82 H Calcium 9.3 Liver Function 03/26/22 Range/Units 09:16 Total Bilirubin 1.4 H (0.0-1.0) mg/dL AST 30 D (5-37) U/L ALT 31 (0-40) U/L Alkaline Phosphatase 130 H D (39-117) U/L Albumin 3.8 (3.5-5.0) g/dL All other labs normal. Assessment and Plan (1) Calculus, renal: Status: Acute (2) JEANNETTE (acute kidney injury): Status: Acute Plan Risks, benefits and alternatives to therapy were discussed. These include but are not limited to infection, bleeding, damage to local organs and tissues, need for further interventions. Anesthetic risks regarding cardiac arrhythmia, blood clots, and potential mortality were discussed. The patient understands the typical recovery time and the outpatient nature of the procedure. After consideration of these risks the patient gives full inf ormed consent and they wish to move ahead with the procedure. Cystoscopy, right retrograde, right stent placement Procedures Date of Service Date of Service: 03/26/22
--- NOTE | 2022-03-26 14:33 | PHA.MEDREC ---
Pharmacy Consult ? Medication Reconciliation Pharmacy has completed the medication reconciliation.
--- NOTE | 2022-03-26 14:46 | MHC.SHP ---
Pre-Procedural Eval Section A Date of Service: 03/26/22 The patient is an INPATIENT: Yes Changes since office visit: No Cold of Flu in the past 2 weeks, No New Medical Problems, No Changes in Medication and No Patient answered all questions The History & Physical has been completed within 30 days and I have reviewed it.: Yes Section B Chief Complaint: infection on leg after surgery/pain in urine Details of Present Illness: cysto retrograde right stent Medical History: No relevant PMH History of Previous Operations: No relevant previous surgery Allergies: Allergies Allergy/AdvReac Type Severity Reaction Status Date / Time lisinopril Allergy Severe anaphylaxis Verified 03/04/22 10:44 gabapentin AdvReac Intermediate leg edema Verified 03/04/22 10:44 Review of Systems Sugical H&P ROS: Negative: Constitution, Cardiovascular, Respiratory, Neurological, Psychiatric, Hem-Onc, Allergic/Immunologic, Gastrointestinal, Genitourinary, Musculoskeletal, Integumentary, Endocrine and Eyes/Ears/Nose/Throat Exam Surgical H&P Exam: Normal: HEENT, Normal: Heart, Normal: Lungs, Normal: Extremities, Normal: Abdomen, Normal: Skin and Normal: Neurological Plan Diagnosis/Plan: Unchanged I have reviewed the history and physical and performed a pertinent physical examination on my patient. No changes have occurred unless specified.
--- NOTE | 2022-03-26 15:14 | P.OP_ITS ---
Operative Note Operative Note Date of Service: 03/26/22 Narrative: PreOperative Diagnosis: Distal ureteric stone solitary kidney Post Operative Diagnosis: Distal ureteric stone solitary kidney Procedure: Cystoscopy, right retrograde, right stent placement Surgeon: Dr Sarmad Davis Anesthesia: LMA Indications for procedure: Distal 2 mm stone on solitary kidney with acute kidney injury creatinine 1.8 Procedure: After informed consent was verified the patient was brought to the operating room and placed in a supine position. Anesthesia was administered per protocol. The patient was placed in modified dorsal lithotomy position and prepped and draped in a sterile fashion. A safety pause time-out was performed. Laterality of procedure and antibiotics were confirmed, appropriate imaging was available A 22 [place]an cystoscope was introduced per urethra. No abnormality was noted of urethra or bladder. Small stone seen distal right ureteric opening The right ureter was cannulated with an open ended catheter and a retrograde examination was performed. No true filling defects seen. . A Sensor guidewire was placed under fluoroscopy and a good coil was seen within the renal pelvis. Stone debris appeared to come out around the wire after placement. A 6 [place]an by 22 double J stent was advanced over the wire and up to the level of the renal pelvis under fluoroscopic and direct visualization. The stent was seen with appropriate coil within the renal pelvis and in the bladder after deployment. The patient tolerated the procedure well and was transferred in a stable condition to the recovery area. Pathology: None Drains: Double-J stent as above
[2022-03-26] MEDS: Acetaminophen 325 MG TABLET 650 MG PO (15:36)
[2022-03-26] MEDS: Phenazopyridine HCL 100 MG TABLET PO (15:36)
== END 2022-03-26 14:40 | disposition home or self-care (01) ==
PROVIDERS: Physician Assistant Medical; Urology; Emergency Provider Emergency Medicine; PCP Internal Medicine
PROC: (CPT 52332; principal; 2022-03-26 14:15)
DX: N13.2 Hydronephrosis with renal and ureteral calculous obstruction (principal); N17.9 Acute kidney failure, unspecified; Z20.822 Contact with and (suspected) exposure to COVID-19; E11.9 Type 2 diabetes mellitus without complications; I10 Essential (primary) hypertension; E78.5 Hyperlipidemia, unspecified; Z87.891 Personal history of nicotine dependence; Z79.84 Long term (current) use of oral hypoglycemic drugs; Z79.899 Other long term (current) drug therapy; Z90.5 Acquired absence of kidney; Z52.4 Kidney donor
CPT/HCPCS: 52332; 36415; 71046; 73552; 73560; 74176; 78580; 80053; 83605; 83735; 85025; 85379; 85730; 87040; 87635; 96372; 96374; 96375; 96376; 99284; 99285; A9540; C1758; C1769; C2617; J1100; J1170; J1650; J1940; J1956; J2250; J2270; J2405; J3010; Q9967

== ENCOUNTER → 2022-04-06 13:50 | Outpatient (BNVA) | payer OTHER, SELFPAY | PROVIDERS: PCP Internal Medicine; Visit Provider Urology | DX: N20.0 Calculus of kidney (principal) | CPT/HCPCS: 52310; 99212 ==

== ENCOUNTER 2022-05-25 17:55 | Outpatient (REF) | payer OTHER, SELFPAY ==
[2022-05-25 18:29] LABS: Amphetamine Screen Urine Not Detected (Not Detect); Barbiturates, Urine Not Detected (Not Detect); Benzodiazepines Screen Urine Not Detected (Not Detect); Cannabinoid Screen Urine Not Detected (Not Detect); Cocaine Screen Urine Not Detected (Not Detect); Fentanyl, urine POSITIVE (Not Detect); Opiate Screen Urine Not Detected (Not Detect); Phencyclidine Screen Urine Not Detected (Not Detect)
[2022-06-02 08:38] LABS: Codeine, Ur NEGATIVE; Hydrocodone, Ur NEGATIVE
[2022-06-02 08:39] LABS: Oxycodone, Ur 1086
[2022-06-02 08:40] LABS: Noroxycodone, Ur 811; Oxymorphone, Ur 571
[2022-06-02 08:41] LABS: Hydromorphone, Ur NEGATIVE; Morphine, Ur NEGATIVE; Norhydrocodone, Ur NEGATIVE
== END 2022-05-25 17:56 | disposition home or self-care (01) ==
LOC: HO.LNP 17:55
PROVIDERS: Visit Provider Internal Medicine
DX: F11.90 Opioid use, unspecified, uncomplicated (principal)
CPT/HCPCS: 80307; 80364; 80365

== ENCOUNTER 2022-06-15 09:46 | Outpatient (REF) | payer OTHER, SELFPAY ==
[2022-06-15 10:12] LABS: MANUAL DIFF FLAG NO
[2022-06-15 10:20] LABS: Basophils Absolute Auto 0.1 X10*3/uL (0.0-0.2); Basophils Percent Auto 0.8 % (0-2); Eosinophils Absolute Auto 0.2 X10*3/uL (0.0-0.4); Eosinophils Percent Auto 3.1 % (0-4); Hematocrit 42.8 % (42.0-52.0); Hemoglobin 14.1 g/dl (14.0-18.0); Imm Gran Abs Auto 0.03 X10*3/uL (0.00-0.03); Imm Gran Pct Auto 0.4 % (0.0-0.4); Lymphocytes Absolute Auto 2.7 X10*3/uL (1.2-4.9); Mean Corpuscular HGB Conc 32.9 g/dl (31.0-36.0); Mean Corpuscular Hemoglobin 28.5 pg (27.0-33.0); Mean Corpuscular Volume 86.5 fL (80.0-98.0); Mean Platelet Volume 11.1 fL (9.4-12.4); Monocytes Absolute Auto 0.9 X10*3/uL (0.1-1.2); Monocytes Percent Auto 11.6 % (2-11); Neutrophils Absolute Auto 3.6 x10*3/uL (2.0-8.3); Neutrophils Percent Auto 48.1 % (45-73); Platelet Count 210 X10*3/uL (160-400); Red Blood Count 4.95 X10*6/uL (4.60-5.80); Red Cell Distribution Width 12.5 % (11.0-16.0); White Blood Count 7.5 X10*3/uL (4.8-10.8)
[2022-06-15 10:58] LABS: Alanine Aminotransferase 28 U/L (0-40); Albumin Level 4.2 g/dL (3.5-5.0); Alkaline Phosphatase 123 U/L (39-117); Anion Gap 15 (12-20); Aspartate Amino Transferase 17 U/L (5-37); Bilirubin Total 0.5 mg/dL (0.0-1.0); Blood Urea Nitrogen 16 mg/dL (9-16); Calcium 9.9 mg/dL (8.4-10.2); Carbon Dioxide 27 mmol/L (22-29); Chloride 102 mmol/L (96-108); Cholesterol 146 mg/dL; Estimated Glomerular Filt Rate > 60; Glucose Random 181 mg/dL (60-115); HDL Cholesterol 37 mg/dL; LDL Cholesterol Calculated 55 mg/dl; Sodium 140 mmol/L (135-145); Total Protein 7.6 g/dL (6.5-8.0); Triglycerides 270 mg/dL
[2022-06-15 11:14] LABS: TSH reflex Free T4 2.99 uIU/mL (0.32-4.0)
[2022-06-15 11:18] LABS: Ferritin 178 ng/mL (20-250)
== END 2022-06-15 09:47 | disposition home or self-care (01) ==
LOC: HO.LAB 09:46
PROVIDERS: Absent Provider Internal Medicine; PCP Internal Medicine; Visit Provider Nurse Practitioner Family
DX: E11.9 Type 2 diabetes mellitus without complications (principal); I10 Essential (primary) hypertension; E78.5 Hyperlipidemia, unspecified; I82.401 Acute embolism and thrombosis of unspecified deep veins of right lower extremity
CPT/HCPCS: 36415; 80053; 80061; 82728; 84443; 85025

== ENCOUNTER 2022-07-22 11:11 | Outpatient (REF) | payer OTHER, SELFPAY ==
--- NOTE | ~2022-07-22 | US_ITS ---
EXAMINATION: US RETROPERITONEAL LIMITED (RENAL ONLY) CLINICAL INFORMATION: Left-sided kidney donor. Nephrolithiasis. COMPARISON: CT abdomen and pelvis 03/26/2022 TECHNIQUE: Real-time imaging of the right kidney. FINDINGS: RIGHT KIDNEY: 13.7 x 6.9 x 7.2 cm (SAG x AP x TRV). The kidney is normal in size, contour, and echogenicity. Renal cortical thickness is normal. No calculi or focal parenchymal lesions. No hydronephrosis. US/US renal RT IMPRESSION: Compensatory hypertrophy of the right kidney. No nephrolithiasis or hydronephrosis.
== END 2022-07-22 11:12 | disposition home or self-care (01) ==
LOC: HO.US 11:11
PROVIDERS: PCP Internal Medicine; Visit Provider Internal Medicine
DX: N20.0 Calculus of kidney (principal)
CPT/HCPCS: 76775

== ENCOUNTER → 2022-08-16 09:40 | Outpatient (BNVA) | payer OTHER, SELFPAY | PROVIDERS: PCP Internal Medicine; Visit Provider Physician Assistant | DX: K59.00 Constipation, unspecified (principal); K21.9 Gastro-esophageal reflux disease without esophagitis; G47.33 Obstructive sleep apnea (adult) (pediatric); I82.401 Acute embolism and thrombosis of unspecified deep veins of right lower extremity; Z79.01 Long term (current) use of anticoagulants | CPT/HCPCS: 99212 ==

== ENCOUNTER → 2022-08-18 14:17 | Outpatient (BNVA) | payer OTHER, SELFPAY | PROVIDERS: PCP Internal Medicine; Visit Provider Internal Medicine | DX: G47.33 Obstructive sleep apnea (adult) (pediatric) (principal); R40.0 Somnolence; G47.36 Sleep related hypoventilation in conditions classified elsewhere; J44.9 Chronic obstructive pulmonary disease, unspecified; D16.21 Benign neoplasm of long bones of right lower limb; Z52.4 Kidney donor; Z99.89 Dependence on other enabling machines and devices | CPT/HCPCS: 99212 ==

== ENCOUNTER 2022-11-04 08:48 | Outpatient (REF) | payer OTHER, SELFPAY ==
[2022-11-04 09:47] LABS: Estimated Average Glucose 200 mg/dL; Hemoglobin A1c % 8.6 %
[2022-11-04 09:58] LABS: Alanine Aminotransferase 36 U/L (0-40); Alkaline Phosphatase 98 U/L (39-117); Anion Gap 13 (12-20); Aspartate Amino Transferase 22 U/L (5-37); Bilirubin Total 0.8 mg/dL (0.0-1.0); Blood Urea Nitrogen 15 mg/dL (9-16); Calcium 9.3 mg/dL (8.4-10.2); Carbon Dioxide 26 mmol/L (22-29); Chloride 104 mmol/L (96-108); Cholesterol 135 mg/dL; Estimated Glomerular Filt Rate > 60; Glucose Fasting 307 mg/dL (60-99); HDL Cholesterol 31 mg/dL; LDL Cholesterol Calculated 27 mg/dl; Potassium 3.8 mmol/L (3.3-5.1); Sodium 139 mmol/L (135-145); Total Protein 7.2 g/dL (6.5-8.0); Triglycerides 386 mg/dL
[2022-11-04 10:15] LABS: Thyroid Stimulating Hormone 4.61 uIU/mL (0.32-4.0); Vitamin D 25-OH Total 25.8 ng/mL (>30)
[2022-11-04 11:33] LABS: Microalbum/Creatinine Ratio Ur 112.9 ug/mg cr
== END 2022-11-04 08:49 | disposition home or self-care (01) ==
LOC: HO.LAB 08:48
PROVIDERS: PCP Internal Medicine; Visit Provider Internal Medicine
DX: R79.89 Other specified abnormal findings of blood chemistry (principal); E11.40 Type 2 diabetes mellitus with diabetic neuropathy, unspecified; E55.9 Vitamin D deficiency, unspecified; E78.5 Hyperlipidemia, unspecified
CPT/HCPCS: 36415; 80053; 80061; 82043; 82306; 83036; 84443

== ENCOUNTER → 2022-12-20 09:48 | Outpatient (BNVA) | payer OTHER, SELFPAY | PROVIDERS: PCP Internal Medicine; Visit Provider Internal Medicine | DX: G47.33 Obstructive sleep apnea (adult) (pediatric) (principal); J44.9 Chronic obstructive pulmonary disease, unspecified; J30.9 Allergic rhinitis, unspecified; E66.9 Obesity, unspecified; Z68.31 Body mass index [BMI] 31.0-31.9, adult | CPT/HCPCS: 99212 ==

== ENCOUNTER 2022-12-27 11:28 | Day surgery (SDC) | payer OTHER, SELFPAY ==
[2022-12-23 12:31] VITALS: BMI 31.9
--- NOTE | 2022-12-26 10:47 | HO.ANESPROP2 ---
Documented by User: Anastasiia Oconnor NP 12/26/22 10:49 HPI - Anesthesia Eval Consult details Narrative: 52yo M for Upper Endoscopy and Colonoscopy [facility] Active Problems Active Problems: All Active Problems (Updated 12/20/22 @ 10:37 by Mychal Long MD) Allergic rhinitis (Acute) Obesity (BMI 30.0-34.9) (Acute) Opiate use (Acute) Osteochondroma of femur (Acute) Right leg DVT (Chronic) Nephrolithiasis (Acute) JEANNETTE (acute kidney injury) (Acute) Acid reflux (Acute) Asthma with COPD (Acute) Physical exam (Acute) Abnormal metaphysis of bone (Acute) Constipation (Acute) Poor historian (Acute) Right leg pain (Acute) Screen for colon cancer (Acute) Nocturnal hypoxemia (Acute) SRINI (obstructive sleep apnea) (Acute) Obesity (BMI 35.0-39.9 without comorbidity) (Acute) Elevated TSH (Acute) Family history of throat cancer (Acute) Chronic sore throat (Acute) Daytime somnolence (Acute) Shortness of breath (Acute) Mild recurrent major depression (Acute) Sacrococcygeal pain (Acute) Bilateral lumbar radiculopathy (Acute) Polyarthralgia (Acute) Lower back pain (Acute) Insomnia (Acute) Dyslipidemia (Acute) Mild asthma (Acute) Essential hypertension (Acute) Depression with anxiety (Acute) Sinusitis, acute maxillary (Acute) Sore throat (Acute) Diabetes mellitus (Acute) Past Medical History Medical History (Updated 12/20/22 @ 10:37 by Mychal Long MD) Allergic rhinitis Chronic sore throat Daytime somnolence Depression with anxiety Diabetes mellitus Dyslipidemia Elevated TSH Essential hypertension Family history of throat cancer Insomnia Mild asthma Mild recurrent major depression Nocturnal hypoxemia Obesity (BMI 35.0-39.9 without comorbidity) SRINI (obstructive sleep apnea) Polyarthralgia Screen for colon cancer Shortness of breath Family History Family History Father Liver problem Mother Diabetes Hypertension Stroke Brother Throat cancer Family/Other Mental health disorder Family history of problems with anesthesia: No Surgical History Surgical History Donor, kidney History of circumcision Osteochondroma of femur History of Problems with Anesthesia: No Social History Social History Household Members: Friend(s) Housing: Apartment Alcohol intake: former Patient Tobacco Use Status: Former Tobacco user Quit Date: 2007 Tobacco use type: Cigarette e-Cigarette/Vaping Use: Never Used Second Hand Smoke Exposure: No Advance Directives: No Advance Directives Information Provided: Yes Advance Directives on File: No service: No Current occupational status: disabled Current occupation: left hand Cognitive needs: Yes (cane ) Hearing needs: No Vision needs: No Meds Allergies Allergy/AdvReac Type Severity Reaction Status Date / Time lisinopril Allergy Severe anaphylaxis Verified 12/20/22 10:18 gabapentin AdvReac Intermediate leg edema Verified 12/20/22 10:18 Home Medications Medication Instructions Recorded Confirmed Last Taken Type clonazepam 1 mg tablet 1 mg PO BEDTIME PRN Anxiety 05/25/20 12/23/22 03/25/22 History buspirone 15 mg tablet 15 mg PO TID 08/18/22 12/23/22 Unknown History risperidone 2 mg tablet 2 mg PO BEDTIME 08/18/22 12/23/22 Unknown History trazodone 50 mg tablet 50 - 100 mg PO DAILY PRN Insomnia 08/18/22 12/23/22 Unknown History prazosin 5 mg capsule 5 mg PO BEDTIME 12/20/22 12/23/22 Unknown History Exam Exam Date and Time: December 26, 2022 1047 Height,Weight and Vital Signs: Height 5 ft 10 in Weight 100.698 kg Pertinent Lab Results Pertinent Lab Results: Laboratory Tests 06/15/22 11/04/22 10:10 09:08 WBC 7.5 Hgb 14.1 Hct 42.8 Plt Count 210 D Sodium 139 Potassium 3.8 Chloride 104 Carbon Dioxide 26 BUN 15 Creatinine 1.13 Assessment and Plan Assessment Anesthesia Assessment: Chart Reviewed Final Anesthetic Review Family History of Problems with Anesthesia: No History of Problems with Anesthesia: No Documented by User: Saulo Escudero MD 12/27/22 11:56 [facility] Past Medical History Medical History (Updated 12/20/22 @ 10:37 by Mychal Long MD) Allergic rhinitis Chronic sore throat Daytime somnolence Depression with anxiety Diabetes mellitus Dyslipidemia Elevated TSH Essential hypertension Family history of throat cancer Insomnia Mild asthma Mild recurrent major depression Nocturnal hypoxemia Obesity (BMI 35.0-39.9 without comorbidity) SRINI (obstructive sleep apnea) Polyarthralgia Screen for colon cancer Shortness of breath Family History Family History Father Liver problem Mother Diabetes Hypertension Stroke Brother Throat cancer Family/Other Mental health disorder Surgical History Surgical History Donor, kidney History of circumcision Osteochondroma of femur Social History Social History Household Members: Friend(s) Housing: Apartment Alcohol intake: former Patient Tobacco Use Status: Former Tobacco user Quit Date: 2007 Tobacco use type: Cigarette e-Cigarette/Vaping Use: Never Used Second Hand Smoke Exposure: No Advance Directives: No Advance Directives Information Provided: Yes Advance Directives on File: No service: No Current occupational status: disabled Current occupation: left hand Cognitive needs: Yes (cane ) Hearing needs: No Vision needs: No Meds Allergies Allergy/AdvReac Type Severity Reaction Status Date / Time lisinopril Allergy Severe anaphylaxis Verified 12/20/22 10:18 gabapentin AdvReac Intermediate leg edema Verified 12/20/22 10:18 Home Medications Medication Instructions Recorded Confirmed Last Taken Type clonazepam 1 mg tablet 1 mg PO BEDTIME PRN Anxiety 05/25/20 12/23/22 03/25/22 History buspirone 15 mg tablet 15 mg PO TID 08/18/22 12/23/22 Unknown History risperidone 2 mg tablet 2 mg PO BEDTIME 08/18/22 12/23/22 Unknown History trazodone 50 mg tablet 50 - 100 mg PO DAILY PRN Insomnia 08/18/22 12/23/22 Unknown History prazosin 5 mg capsule 5 mg PO BEDTIME 12/20/22 12/23/22 Unknown History Assessment and Plan Assessment Anesthesia Assessment: Anesthesia Plan Discussed Final Anesthetic Review NPO: Yes ASA Class: III Final Preanesthetic Review: No Changes in Pt Med Stat, Meds/Allgs Chart Reviewed, Consent Obtained/Reviewed and Anes Risks/Benef Reviewed Patient Risk: Intermediate Procedure Risk: Low Anesthetic Plan Anesthetic Plan: MAC: Disposition: Standard PACU
[2022-12-27 11:46] VITALS: BP 140/96; PULSE 82; RESP 20; TEMP 36.6; O2SAT 96
[2022-12-27 11:47] LABS: Glucose, Whole Blood 145 mg/dL (60-115)
[2022-12-27] MEDS: Lactated Ringers 1,000 ML 100 ML IVCONT (11:56)
--- NOTE | 2022-12-27 11:56 | P.HPSUR_ITS ---
Pre-Procedural Eval Section A Date of Service: 12/27/22 Section B Chief Complaint: Constipation, unspecified,GERD Relevant Family History (Specify if Yes): No Relevant Social History: None Present Medications: see Short Stay Collaborative assessment Medical History: Significant History (Allergic rhinitis Chronic sore throat Daytime somnolence Depression with anxiety Diabetes mellitus Dyslipidemia [place] lamine TSH Essential hypertension Family history of throat cancer Insomnia Mild asthma Mild recurrent major depression Nocturnal hypoxemia Obesity (BMI 35.0- 39.9 without comorbidity) SRINI) History of Previous Operations: Relevant previous surgery/procedure and date(s) (Donor, kidney History of circumcision Osteochondroma of femur) Allergies: Allergies Allergy/AdvReac Type Severity Reaction Status Date / Time lisinopril Allergy Severe anaphylaxis Verified 12/20/22 10:18 gabapentin AdvReac Intermediate leg edema Verified 12/20/22 10:18 Review of Systems Sugical H&P ROS: Negative: Constitution, Cardiovascular, Respiratory, Neurological, Psychiatric, Hem-Onc, Allergic/Immunologic, Gastrointestinal, Genitourinary, Musculoskeletal, Integumentary, Endocrine and Eyes/Ears/Nose/Throat Exam Surgical H&P Exam: Normal: HEENT, Normal: Heart, Normal: Lungs, Normal: Extremities, Normal: Abdomen, Normal: Skin and Normal: Neurological Plan Diagnosis/Plan: Unchanged I have reviewed the history and physical and performed a pertinent physical examination on my patient. No changes have occurred unless specified. Time Spent With Patient Time: Total time managing care of this patient today ____ minutes.
--- NOTE | 2022-12-27 11:57 | P.OP_ITS ---
Operative Note Operative Note Date of Service: 12/27/22 Narrative: Operative Information Procedure Description: EGD, Colonoscopy Indication: GERD and colon screening Anesthesia: MAC FLEXIBLE TRANSORAL UPPER GASTROINTESTINAL ENDOSCOPY AND COLONOSCOPY PROCEDURE NOTE UPPER ENDOSCOPY Consent: Indications for the procedure and potential complications of bleeding, perforation, reaction to medications and missed diagnosis were discussed with the patient and informed consent was obtained. Instrument: Olympus GIF H 190 J mid size upper endoscope Monitoring: Vital signs and clinical assessment, continuous EKG monitoring, Pulse oximetry, Carbon Dioxide monitoring and blood pressure monitoring were done throughout the procedure. Procedure: The patient was placed in the left lateral decubitis position and pre-procedure medications were administered and a bite block was placed. The endoscope was inserted into the mouth and advanced under direct vision to the third part of duodenum. A careful inspection was made as the upper endoscope was withdrawn including a retroflexed examination of the proximal stomach; Findings and interventions are described below. Findings: Larynx:normal Esophagus: GE junction at 40 cm, diaphragm hiatus at 40 cm, bx taken from distal esophagus Stomach: Mild patchy erythema. Biopsies were obtained. Grade 2 flap valve on retroflexed examination of the cardia. Duodenum: Normal bulb and descending duodenum, Intervention: Biopsies as noted above COLONOSCOPY Instrument: Olympus variable stiffness pediatric scope 190L Colonoscopy Monitoring: Vital signs and clinical assessment, continuous EKG monitoring, Pulse oximetry, Carbon Dioxide monitoring and blood pressure monitoring were done throughout the procedure. Colon withdrawal time was 9 minutes. Procedure: The patient was placed in the left lateral decubitis position and pre-procedure medications were administered. After a digital rectal examination of the ano-rectum, the video colonoscope was inserted into the rectum and advanced through the colon to the cecum/TI. The colonoscope was slowly withdrawn in a retrograde panoramic fashion and the colon mucosa was carefully examined including a retroflexed view of the rectum. Findings and interventions are described below. Procedure Difficulty:easy Findings: Terminal Ileum-normal Cecum:normal Ascending Colon: 4-6 mm sessile polyp removed with cold snare Transverse Colon -normal Descending Colon:normal Sigmoid Colon: normal Rectum: Retroflexion with small internal hemorrhoids, grade I, 4-6 mm sessile polyp removed with cold snare Anorectum - normal Colon preparation: [place] Bowel Preparation Scale Right colon; 3 Transverse colon: 2 Left colon; 3 (0 = Unprepared colon segment with mucosa not seen due to solid stool that cannot be cleared. 1 = Portion of mucosa of the colon segment seen, but other areas of the colon segment not well seen due to staining, residual stool and/or opaque liquid. 2 = Minor amount of residual staining, small fragments of stool and/or opaque liquid, but mucosa of colon segment seen well. 3 = Entire mucosa of colon segment seen well with no residual staining, small fragments of stool or opaque liquid) Impression and Post Procedure Diagnosis: Endoscopy Findings: gastritis Colonoscopy Findings: polyps internal hemorrhoids Plan: Await Pathology results Repeat Colonoscopy in 5 years due to polyps or earlier if clinically indicated High fiber diet leaflet avoid straining at stool, epsom salts and sitz bath, anusol supps or cream GERD precautions Above findings were reviewed with the patient and relevant handouts were provided if indicated.
[2022-12-27 12:48] VITALS: BP 100/71; PULSE 82; RESP 18; TEMP 37.6; O2SAT 97
[2022-12-27 13:12] VITALS: BP 113/78; PULSE 96; RESP 18; TEMP 36.4; O2SAT 96
== END 2022-12-27 13:34 | disposition home or self-care (01) ==
PROVIDERS: PCP Internal Medicine; Visit Provider Internal Medicine Gastroenterology
PROC: (CPT 45385; principal; 2022-12-27 14:50)
DX: Z12.11 Encounter for screening for malignant neoplasm of colon (principal); D12.2 Benign neoplasm of ascending colon; K62.1 Rectal polyp; K64.0 First degree hemorrhoids; K59.00 Constipation, unspecified; K21.9 Gastro-esophageal reflux disease without esophagitis; K29.50 Unspecified chronic gastritis without bleeding; K44.9 Diaphragmatic hernia without obstruction or gangrene; G47.33 Obstructive sleep apnea (adult) (pediatric); J31.2 Chronic pharyngitis; J45.909 Unspecified asthma, uncomplicated; F41.8 Other specified anxiety disorders; E11.9 Type 2 diabetes mellitus without complications; E78.5 Hyperlipidemia, unspecified; I10 Essential (primary) hypertension; E66.9 Obesity, unspecified; Z68.31 Body mass index [BMI] 31.0-31.9, adult; I82.401 Acute embolism and thrombosis of unspecified deep veins of right lower extremity; Z79.01 Long term (current) use of anticoagulants; Z79.84 Long term (current) use of oral hypoglycemic drugs; Z79.85 Long-term (current) use of injectable non-insulin antidiabetic drugs; Z79.899 Other long term (current) drug therapy; Z88.8 Allergy status to other drugs, medicaments and biological substances; Z52.4 Kidney donor; Z87.891 Personal history of nicotine dependence
CPT/HCPCS: 45385; 43239; 82947; 88305; 88342; J2250

== ENCOUNTER 2023-01-23 13:13 | Outpatient (AMB) | payer OTHER, SELFPAY ==
--- NOTE | 2023-01-23 13:19 | MHC.OFFVIS ---
Intake Vital Signs 01/23/23 13:23 Height 5 ft 10 in Weight 217 lb BMI 31.1 BP 124/84 Blood Pressure Location Lt brachial Position Sitting Pulse 80 Intake Visit Reasons: S/P Castella; Dr. Rodriguez Intake Note: Patient follow up for Colonoscopy results. Patient denies any GI issues. [place] Required: No Accompanied by: Spouse Allergies lisinopril Allergy (Severe, Verified 01/23/23 13:18) anaphylaxis gabapentin Adverse Reaction (Intermediate, Verified 01/23/23 13:18) leg edema Medication List - Last Reconciled 01/23/23 by Bettye Harry PA-C amlodipine 10 mg PO DAILY apixaban (Eliquis) 5 mg PO BID atorvastatin 20 mg PO DAILY blood sugar diagnostic (FreeStyle Lite Strips) Test Daily blood sugar diagnostic (OneTouch Ultra Test strips) Use 1 test strip daily blood-glucose meter (3GuppiesTouch Ultra2 Meter) USE DIRECTED blood-glucose meter (FreeStyle Lite Meter kit) Test Daily buspirone 15 mg PO TID cetirizine (All Day Allergy (cetirizine)) 10 mg PO DAILY PRN 90 days cholecalciferol (vitamin D3) 25 mcg PO DAILY 90 days clonazepam 1 mg PO BEDTIME PRN cyclobenzaprine 10 mg PO TID PRN 30 days dulaglutide (Trulicity) 1.5 mg (0.5 mL) subcut QWEEK 30 days escitalopram oxalate (Lexapro) 20 mg PO DAILY 90 days flash glucose scanning reader (FreeStyle Yuki 2 [place]) As directed flash glucose sensor As directed flash glucose sensor (FreeStyle Yuki 2 Sensor kit) As directed flash glucose sensor (FreeStyle Yuki 2 Sensor kit) As directed lancets (FreeStyle Lancets) Test Daily lancets (3GuppiesTouch UltraSoft Lancets) Use 1 lancet once a day metformin ER 500 mg PO BID 90 days omeprazole 20 mg PO QAM prazosin 5 mg PO BEDTIME risperidone 2 mg PO BEDTIME trazodone 50 - 100 mg PO DAILY PRN Ventolin HFA 90 mcg/actuation (albuterol sulfate) 2 puffs inhalation Q6H PRN 30 days NS HPI HPI Comments History of Present Illness Details A 52-year-old male acid reflux, follows up after recent EGD colonoscopy with polypectomy He tolerated procedures well- Reviewed procedure report and pathology Continues to complain of acid reflux despite PPI. His is is present- He has no nausea, vomiting hematemesis, hematochezia fever or chills [facility] Medical History (Updated 01/23/23 @ 13:22 by Bettye Harry PA-C) Allergic rhinitis Chronic sore throat Daytime somnolence Depression with anxiety Diabetes mellitus Dyslipidemia Elevated TSH Essential hypertension Family history of throat cancer Insomnia Mild asthma Mild recurrent major depression Nocturnal hypoxemia Obesity (BMI 35.0-39.9 without comorbidity) SRINI (obstructive sleep apnea) Polyarthralgia Screen for colon cancer Shortness of breath Surgical History Donor, kidney History of circumcision History of esophagogastroduodenoscopy (EGD) Hx of colonoscopy Osteochondroma of femur Family History Father Liver problem Mother Diabetes Hypertension Stroke Brother Throat cancer Family/Other Mental health disorder Social History Household Members: Friend(s) Housing: Apartment Alcohol intake: former Patient Tobacco Use Status: Former Tobacco user Quit Date: 2007 Tobacco use type: Cigarette e-Cigarette/Vaping Use: Never Used Second Hand Smoke Exposure: No service: No Current occupational status: disabled Current occupation: left hand Cognitive needs: Yes (cane ) Hearing needs: No Vision needs: No Review of Systems Const All systems reviewed & are unremarkable except as noted in HPI and below Card Denies chest pain and Denies dyspnea Resp Denies dyspnea GI Denies abdominal pain, Denies change in bowel habits and Reports heartburn Physical Exam Vital Signs: Last Vital Signs Pulse 80 01/23/23 13:23 BP 124/84 01/23/23 13:23 BMI result Body Mass Index 31.1 Const General: cooperative, healthy appearing and comfortable Orientation/consciousness: patient oriented x3 Limitations: language barrier and ambulation with cane Eyes Sclerae: sclerae normal Resp Effort & Inspection: normal respiratory effort and able to speak in complete sentences Neuro General: patient oriented x3 Psych Appearance: well kempt Affect: Labile affect present Attitude: cooperative Thought content: Normal thought content present Results Reviewed Results Reviewed: ndoscopy Findings: gastritis Colonoscopy Findings: polyps internal hemorrhoids Plan: Await Pathology results Repeat Colonoscopy in 5 years due to polyps or earlier if clinically indicated High fiber diet leaflet avoid straining at stool, epsom salts and sitz bath, anusol supps or cream GERD precautions Above findings were reviewed with the patient and relevant handouts were provided if indicated. Name: Rajat MurphyRodolfo Age/Sex: 52/M Attending: Luisito Rodriguez MD : 1970 Submitted by: Luisito Rodriguez MD Copies to: Asuncion Clifton MD MR #: [id number] Status: [facility] Collected: 12/27/22 Location: [facility] [[email or web address]] Received: 12/27/22 Diagnosis A. Stomach, biopsy: Gastric antral and body mucosa with minimal chronic inactive gastritis; negative for H pylori, intestinal metaplasia and dysplasia. B. Esophagus, distal, biopsy: Squamous mucosa with no specific change; no columnar mucosa present. C. Colon, ascending, polyp: Tubular adenoma; negative for high-grade dysplasia and carcinoma. D. Colon, rectal polyp: Hyperplastic polyp. Clinical History Pre-Op Dx: Colon cancer screening, GERD Post-Op Dx: Gastritis, colon polyps, internal hemorrhoids Microscopic Description Assessment & Plan Assessment & Plan (1) Colon adenoma: Code(s): D12.6 - Benign neoplasm of colon, unspecified Plan: Asymptomatic colonoscopy 5 years (2) Gastritis: Code(s): K29.70 - Gastritis, unspecified, without bleeding Plan: Continue PPI (3) Hemorrhoids: Code(s): K64.9 - Unspecified hemorrhoids Plan: Maintain high-fiber diet avoid straining Plan cont omeprazole reflux precautions HFD colonoscopy 5 years Medications: New methylcellulose (laxative) (Citrucel) 500 mg PO TID 90 tabs 5RF Patient Instructions: cont omeprazole reflux precautions-avoid culprits HFD, avoid straining with hemorrhoids colonoscopy 5 years Coding Level of Care Code Est Pt Level 3 (63310) Diagnoses Colon adenoma D12.6 Gastritis K29.70 Hemorrhoids K64.9 Time Spent (min) 20 Comment
[2023-01-23 13:23] VITALS: BP 124/84; PULSE 80; BMI 31.1
== END 2023-01-23 13:36 | disposition home or self-care (01) ==
PROVIDERS: Visit Provider Physician Assistant
DX: D12.6 Benign neoplasm of colon, unspecified (principal); K29.70 Gastritis, unspecified, without bleeding; K64.9 Unspecified hemorrhoids
CPT/HCPCS: 99213

== ENCOUNTER → 2023-01-23 13:13 | Outpatient (BNVA) | payer OTHER, SELFPAY | PROVIDERS: Visit Provider Physician Assistant | DX: D12.6 Benign neoplasm of colon, unspecified (principal); K29.70 Gastritis, unspecified, without bleeding; K64.9 Unspecified hemorrhoids | CPT/HCPCS: 99212 ==

== ENCOUNTER 2023-02-15 14:59 | Outpatient (AMB) | payer OTHER, SELFPAY ==
[2023-02-15 15:00] VITALS: BP 128/78; PULSE 81; O2SAT 97; BMI 32.6
--- NOTE | 2023-02-15 15:00 | A.OFFVIS_ITS ---
Intake Vital Signs 02/15/23 15:00 Height 5 ft 9 in Weight 220 lb 7.396 oz BMI 32.6 BP 128/78 Blood Pressure Location Rt brachial Position Sitting Pulse 81 Pulse Source Pulse Oximeter Pulse Oximetry (%) 97 Oxygen Delivery Method Room Air Intake Visit Reasons: srini Intake Note: PT reports going for surgery 03/06/23 to get bolts out of his right knee. Allergies lisinopril Allergy (Severe, Verified 02/15/23 16:28) anaphylaxis gabapentin Adverse Reaction (Intermediate, Verified 02/15/23 16:28) leg edema Medication List - Last Reconciled 02/15/23 by Mychal Long MD amlodipine 10 mg PO DAILY apixaban (Eliquis) 5 mg PO BID atorvastatin 20 mg PO DAILY blood sugar diagnostic (FreeStyle Lite Strips) Test Daily blood sugar diagnostic (OneTouch Ultra Test strips) Use 1 test strip daily blood-glucose meter (Results UnitedTouch Ultra2 Meter) USE DIRECTED blood-glucose meter (FreeStyle Lite Meter kit) Test Daily buspirone 15 mg PO TID cetirizine (All Day Allergy (cetirizine)) 10 mg PO DAILY PRN 90 days cholecalciferol (vitamin D3) 25 mcg PO DAILY 90 days clonazepam 1 mg PO BEDTIME PRN cyclobenzaprine 10 mg PO TID PRN 30 days dulaglutide (Trulicity) 1.5 mg (0.5 mL) subcut QWEEK 30 days escitalopram oxalate (Lexapro) 20 mg PO DAILY 90 days flash glucose scanning reader (FreeStyle Yuki 2 [place]) As directed flash glucose sensor As directed flash glucose sensor (FreeStyle Yuki 2 Sensor kit) As directed flash glucose sensor (FreeStyle Yuki 2 Sensor kit) As directed lancets (FreeStyle Lancets) Test Daily lancets (Results UnitedTouch UltraSoft Lancets) Use 1 lancet once a day metformin ER 500 mg PO BID 90 days methylcellulose (laxative) (Citrucel) 500 mg PO TID omeprazole 20 mg PO QAM prazosin 5 mg PO BEDTIME risperidone 2 mg PO BEDTIME trazodone 50 - 100 mg PO DAILY PRN Ventolin HFA 90 mcg/actuation (albuterol sulfate) 2 puffs inhalation Q6H PRN 30 days NS Do you need a note to return to daycare/school/sports/work: No HPI srini HPI Details THIS 52 YEARS OLD GENTLEMAN COMES FOR FOLLOW-UP FOR HIS SLEEP APNEA. HE HAD HIS NASAL MASK ABOUT 4 WEEKS AGO. HE STARTED USING CPAP BUT ONLY FOR A FEW DAYS. SUBSEQUENTLY HE HAD MORE DISCOMFORT IN THE RIGHT KNEE AND THIGH, . AND STOPPED USING THE CPAP AT NIGHT HE IS SCHEDULED TO HAVE SURGERY, TO EXTRACT THE RODS FROM THE RIGHT FEMUR, AND HE SAY IS HE IS NOW PLANNING TO START USING THE CPAP AFTER THE SURGERY. STILL DOES NOT SLEEP WELL AND DOES. HAVE SNORING AT NIGHT [facility] Medical History Allergic rhinitis Chronic sore throat Daytime somnolence Depression with anxiety Diabetes mellitus Dyslipidemia Elevated TSH Essential hypertension Family history of throat cancer Insomnia Mild asthma Mild recurrent major depression Nocturnal hypoxemia Obesity (BMI 35.0-39.9 without comorbidity) SRINI (obstructive sleep apnea) Polyarthralgia Screen for colon cancer Shortness of breath Surgical History Donor, kidney History of circumcision History of esophagogastroduodenoscopy (EGD) Hx of colonoscopy Osteochondroma of femur Family History Father Liver problem Mother Diabetes Hypertension Stroke Brother Throat cancer Family/Other Mental health disorder Social History Household Members: Friend(s) Housing: Apartment Alcohol intake: former Patient Tobacco Use Status: Former Tobacco user Quit Date: 2007 Tobacco use type: Cigarette e-Cigarette/Vaping Use: Never Used Second Hand Smoke Exposure: No service: No Current occupational status: disabled Current occupation: left hand Cognitive needs: Yes (cane ) Hearing needs: No Vision needs: No Review of Systems Const All systems reviewed & are unremarkable except as noted in HPI and below Eyes Reports no additional complaints ENT Reports nasal congestion (MILD INTERMITTENT) Card Denies irregular heart rhythm and Denies leg edema Resp Denies cough and Reports wheezing (Occasional mild wheezing) GI Denies no additional complaints Reports no additional complaints Musc Reports back pain and Reports other (s/p fracture right femur, has increased pain in the right mid thigh and kn ) Skin/Breast Reports system reviewed and no additional complaints, except as documented Neuro Reports no additional complaints Psych Reports anxiety and Reports depression Endo Reports other (Type 2 diabetes) Arjun/Lymph Reports no additional complaints Aller/Immun Reports wheezing (Occasional mild wheezing) Physical Exam Vital Signs: Last Vital Signs Pulse 81 02/15/23 15:00 BP 128/78 02/15/23 15:00 Pulse Ox 97 02/15/23 15:00 Oxygen Delivery Method Room Air 02/15/23 15:00 BMI result Body Mass Index 32.6 Const Other: Grossly overweight General: comfortable, no acute distress, alert and awake Orientation/consciousness: patient oriented x3 HEENT Head: Yes normal to inspection General nose exam: No nasal polyps present and No nasal discharge present Face and sinus: Yes sinuses nontender Mouth: oropharynx abnormals (Narrow and crowded oropharynx, Mallampati class 4) Throat: Yes posterior oropharynx normal Eyes General: appearance normal, both eyes and all related structures Neck Neck: Yes normal visual inspection, Yes no lymphadenopathy, Yes trachea midline, Yes no JVD and Yes other (Neck size 17 in) Thyroid: Thyroid normal Chest Chest palpation & inspection: normal inspection of the chest, normal palpation of entire chest wall and no tenderness Resp Other: Percussion note is resonant, breath sounds equal on both sides and clear. No wheezes rhonchi or crepitations are heard. Cardio Palpation: normal PMI Rate: regular rate Rhythm: regular rhythm Heart sounds: no gallops and no murmurs GI Palpation (GI): Soft to palpation, nontender, No hepatosplenomegaly present and no masses Auscultation: normal bowel sounds Back/Spine/Pelvis Thoracic/Lumbar Spine: thoracic and lumbar spine normal to inspection, thoraco- lumbar ROM limited and thoraco-lumbar spasm Skin General skin exam: no rashes or lesions noted Neuro General: patient oriented x3 and no focal motor deficits Cranial nerves: Yes CN's II-XII intact bilaterally Extrem General: Yes normal to inspection, Yes no clubbing, cyanosis or edema, Yes no calf tenderness and Yes other (Painful right thigh and knee area) Psych Appearance: grossly normal and well kempt Speech and movement: Normal speech and movement present Results Reviewed Results Reviewed: HIS COMPLIANCE REPORT FOR THE LAST 30 NIGHTS IS REVIEWED AND HE USED ONLY 4/30 NIGHTS, COMPLIANCE ONLY 13%. THIS IS DEFINITELY VERY POOR COMPLIANCE. AND ALMOST EQUAL TO NON USAGE Assessment & Plan Assessment & Plan (1) Asthma with COPD: Comment: History of asthma/COPD. Currently doing well with p.r.n. use of albuterol HFA( VENTOLIN ) 2 puffs Q 4-6 hours p.r.n. which he uses once or twice a day. ADVISED TO CONTINUE THE SAME. Code(s): J44.9 - Chronic obstructive pulmonary disease, unspecified (2) SRINI (obstructive sleep apnea): Comment: Patient does have severe degree of obstructive sleep apnea with total sleep time AHI 44. And is supposed to be using CPAP . Every night . Pressure setting of 11 cm. He used to have full face mask and now he has a nasal mask but still not using the CPAP regularly. Had a long talk with him and told him that he should use it every night for at least 4-5 hours per night. Code(s): G47.33 - Obstructive sleep apnea (adult) (pediatric) Coding Level of Care Code Est Pt Level 3 (19659) Diagnoses Asthma with COPD J44.9 SRINI (obstructive sleep apnea) G47.33
== END 2023-02-15 15:32 | disposition home or self-care (01) ==
PROVIDERS: PCP Internal Medicine; Visit Provider Internal Medicine
DX: J44.9 Chronic obstructive pulmonary disease, unspecified (principal); G47.33 Obstructive sleep apnea (adult) (pediatric)
CPT/HCPCS: 99213

== ENCOUNTER → 2023-02-15 14:59 | Outpatient (BNVA) | payer OTHER, SELFPAY | PROVIDERS: PCP Internal Medicine; Visit Provider Internal Medicine | DX: Z01.811 Encounter for preprocedural respiratory examination (principal); G47.33 Obstructive sleep apnea (adult) (pediatric); E11.9 Type 2 diabetes mellitus without complications; Z52.4 Kidney donor; Z79.4 Long term (current) use of insulin; Z79.899 Other long term (current) drug therapy; Z91.199 Patient's noncompliance with other medical treatment and regimen due to unspecified reason; Z99.89 Dependence on other enabling machines and devices | CPT/HCPCS: 99212 ==

== ENCOUNTER 2023-03-24 13:21 | Outpatient (AMB) | payer OTHER, SELFPAY ==
--- NOTE | 2023-03-24 13:25 | A.OFFPC_ITS ---
Vital Signs 03/24/23 13:27 Height 5 ft 9 in Weight 215 lb BMI 31.7 BP 122/72 Blood Pressure Location Lt brachial Position Sitting Pulse 78 Pulse Source Pulse Oximeter Pulse Oximetry (%) 96 Oxygen Delivery Method Room Air Intake Visit Reasons: Removal of Hardware Right Femur -04/03/23 Intake Note: Patient is here for a Pre-op for removal of hardware right femur scheduled with Dr Quarles (DANIEL) on 04/03/23. 1St Grade Teacher Required: No Emr Analyst: Not Required per policy Accompanied by: Self / Same As Patient Allergies lisinopril Allergy (Severe, Verified 03/24/23 13:26) anaphylaxis gabapentin Adverse Reaction (Intermediate, Verified 03/24/23 13:26) leg edema Tobacco use date assessed: 03/24/23 Dental Screening Dental Screen Date: 03/24/23 Did you have a dental visit in the last 12 months?: Yes Did you have a dental problem in the last 6 months where you did not have access to dental care?: No Was dental information given to patient?: Patient has dentist HPI HPI Comments History of Present Illness Details 52-year-old male past medical history si gnificant for nephrolithiasis, asthma with COPD, SRINI, depression, dyslipidemia, hypertension diabetes mellitus. Pateint of Dr. Allred, presents today for pre-op for hardware removal of right leg with Dr Quarles (DANIEL) on 04/03/23. Denies previous complications to anesthia in past. Denies CP,palpitations, sob and syncope. Pre-op labs and EKG ordered. [facility] Medical History Allergic rhinitis Chronic sore throat Daytime somnolence Depression with anxiety Diabetes mellitus Dyslipidemia Elevated TSH Essential hypertension Family history of throat cancer Insomnia Mild asthma Mild recurrent major depression Nocturnal hypoxemia Obesity (BMI 35.0-39.9 without comorbidity) SRINI (obstructive sleep apnea) Polyarthralgia Screen for colon cancer Shortness of breath Surgical History History of esophagogastroduodenoscopy (EGD) Hx of colonoscopy Osteochondroma of femur Donor, kidney History of circumcision Family History Father Liver problem Mother Diabetes Hypertension Stroke Brother Throat cancer Family/Other Mental health disorder Social History Household Members: Friend(s) Housing: Apartment Alcohol intake: former Patient Tobacco Use Status: Former Tobacco user Quit Date: 2007 Tobacco use type: Cigarette e-Cigarette/Vaping Use: Never Used Second Hand Smoke Exposure: No service: No Current occupational status: disabled Current occupation: left hand Cognitive needs: Yes (cane ) Hearing needs: No Vision needs: No Questionnaire Thrive Questionnaire Date Thrive assessed: 08/16/22 JYOTHI-7 AMB Questionnaire JYOTHI-7 Date JYOTHI - 7 assessed: 08/16/22 Source: Developed by Drs. Percy Licea, Renetta Kline, Graham Pacheco and colleagues, with an educational levy from [employer]. Review of Systems Const Denies chills, Denies fatigue, Denies fever(s) and Denies poor appetite Eyes Denies no additional complaints ENT Reports Normal hearing present Card Denies chest pain, Denies syncope, Denies rapid heart rate and Denies dyspnea Resp Denies cough and Denies dyspnea GI Denies change in stool character, Denies constipation, Denies diarrhea, Denies nausea and Denies vomiting Denies dysuria, Denies urinary frequency and Denies urinary urgency Neuro Reports Normal hearing present, Denies confusion and Denies syncope Psych Denies confusion Endo Denies fatigue Physical exam (Primary Care) Vital Signs: Last Vital Signs Pulse 78 03/24/23 13:27 BP 122/72 03/24/23 13:27 Pulse Ox 96 03/24/23 13:27 Oxygen Delivery Method Room Air 03/24/23 13:27 BMI result Body Mass Index 31.7 Tobacco/Smoking Status: Tobacco use Status Tobacco use date assessed 03/24/23 03/24/23 13:37 Patient Tobacco Use Status Former Tobacco user 03/24/23 13:37 Tobacco use type Cigarette 03/24/23 13:37 e-Cigarette/Vaping Use Never Used 03/24/23 13:37 Thrive Assessment: Date of Thrive Assessment Date Thrive assessed 08/16/22 03/24/23 13:37 Const General: No confusion Orientation/consciousness: No confusion HENMT Head: Yes normocephalic and Yes atraumatic Eyes Conjunctivae: conjunctivae normal Chest Chest palpation & inspection: normal inspection of the chest Resp Effort & Inspection: normal respiratory effort Auscultation: clear to auscultation bilaterally, no crackles, no rhonchi and no wheezes Cardio Rate: regular rate Rhythm: regular rhythm Heart sounds: S1 normal heart sound present and S2 normal heart sound present GI Inspection: Yes normal to inspection Neuro General: No confusion Cranial nerves: Yes Normal hearing present Extrem General: No edema Results AMB Hemoglobin A1c AMB Hemoglobin A1c 6.3 % Last Edit by CHRIS Murillo on 03/24/23 13:38 Results Reviewed Results Reviewed: Laboratory Last Values Hgb A1c (Clinic) 6.3 % (4.0-6.0) H 03/24/23 13:24 Assessment and Plan Assessment & Plan (1) Preop examination: Code(s): Z01.818 - Encounter for other preprocedural examination Plan: Preop labs and EKG ordered, pulse reviewed in addendum will be made to this note with patient able to proceed with scheduled surgery. Patient advised to hold metformin while NPO. Patient advised to discontinue Eliquis 2 days prior to surgery, hold day of procedure and day after then resume. (2) Right leg DVT: Comment: 05/20/22- Dr. Lewis-Assessment and plan: 1. This is a pleasant 51-year-old male who was diagnosed with right lower extremity DVT a few weeks after a 2nd orthopedic surgery. Although he was on prophylaxis with low-molecular weight heparin, he appears to have developed DVT. He is now on Eliquis 5 mg b.i.d.. He reports improvement in pain and swelling of his leg. He has developed some renal insufficiency on recent blood work. I have asked him to repeat CBC and CMP in the following days. I discussed diagnosis and management of DVT. As this occurred in the pos toperative setting, I have recommended 3 months of anticoagulation. He was advised to continue to abstain from nicotine and alcohol. He will be seen in the next 4-6 weeks. Code(s): I82.401 - Acute embolism and thrombosis of unspecified deep veins of right lower extremity Plan: Continue on Eliquis (3) Essential hypertension: Code(s): I10 - Essential (primary) hypertension Plan: Continue on amlodipine 10 mg daily. (4) Diabetes mellitus: Code(s): E11.9 - Type 2 diabetes mellitus without complications Qualifiers: Diabetes mellitus type: type 2 Diabetes mellitus terminal make up operator insulin use: without skilled nursing use Diabetes mellitus complication status: without complication Qualified Code(s): E11.9 - Type 2 diabetes mellitus without complications Plan: Continue on metformin. Follow low-carbohydrate diet. Plan Keep scheduled follow-up with PCP or follow-up sooner if needed. Orders: Orders AMB Hemoglobin A1c 03/24/23 E11.9 - Type 2 diabetes mellitus without complications TSH reflex Free T4 03/24/23 Z01.812 - Encounter for preprocedural laboratory examination Prothrombin Time INR 03/24/23 Z.812 - Encounter for preprocedural laboratory examination ECG 12 lead EKG 03/24/23 Z.818 - Encounter for other preprocedural examination Comprehensive Met. Panel 03/24/23 Z81 - Encounter for preprocedural laboratory examination Complete Blood Count Auto Diff 03/24/23 Z - Encounter for preprocedural laboratory examination Medications: Refilled flash glucose sensor (FreeStyle Yuki 2 Sensor kit) As directed 2 ea 3RF E11.9 - Type 2 diabetes mellitus without complications Coding Level of Care Code Est Pt Level 4 (32914) Diagnoses Preop examination Z.81 Right leg DVT I82.401 Essential hypertension I10 Type 2 diabetes mellitus without complication, without long-term current use of insulin E11.9 Diabetes mellitus type: type 2 Diabetes mellitus skilled nursing insulin use: without terminal make up operator use Diabetes mellitus complication status: without complication
[2023-03-24 13:27] VITALS: BP 122/72; PULSE 78; O2SAT 96; BMI 31.7
== END 2023-03-24 13:58 | disposition home or self-care (01) ==
PROVIDERS: PCP Internal Medicine; Visit Provider Nurse Practitioner Family
DX: E11.9 Type 2 diabetes mellitus without complications (principal)
CPT/HCPCS: 83036; 99214

== ENCOUNTER 2023-03-24 14:07 | Outpatient (REF) | payer OTHER, SELFPAY ==
--- NOTE | 2023-03-24 14:11 | ECG_ITS ---
Test Reason : preop Blood Pressure : / mmHG Vent. Rate : 075 BPM Atrial Rate : 075 BPM P-R Int : 154 ms QRS Dur : 096 ms QT Int : 392 ms P-R-T Axes : 034 076 053 degrees QTc Int : 437 ms Normal sinus rhythm Normal ECG When compared with ECG of 10-MAY-2018 10:36, No significant change was found Referred By: Mary Yee Electronically Signed By:AMOS GONZALEZ
[2023-03-24 14:26] LABS: MANUAL DIFF FLAG NO
[2023-03-24 14:46] LABS: Basophils Absolute Auto 0.1 X10*3/uL (0.0-0.2); Basophils Percent Auto 1.1 % (0-2); Eosinophils Absolute Auto 0.1 X10*3/uL (0.0-0.4); Eosinophils Percent Auto 1.6 % (0-4); Hematocrit 45.1 % (42.0-52.0); Hemoglobin 15.2 g/dl (14.0-18.0); Imm Gran Abs Auto 0.02 X10*3/uL (0.00-0.03); Imm Gran Pct Auto 0.2 % (0.0-0.4); Lymphocytes Absolute Auto 3.6 X10*3/uL (1.2-4.9); Lymphocytes Percent Auto 41.7 % (20-40); Mean Corpuscular HGB Conc 33.7 g/dl (31.0-36.0); Mean Corpuscular Hemoglobin 29.7 pg (27.0-33.0); Mean Corpuscular Volume 88.3 fL (80.0-98.0); Mean Platelet Volume 10.2 fL (9.4-12.4); Monocytes Absolute Auto 0.8 X10*3/uL (0.1-1.2); Monocytes Percent Auto 8.9 % (2-11); Neutrophils Percent Auto 46.5 % (45-73); Platelet Count 231 X10*3/uL (160-400); Red Blood Count 5.11 X10*6/uL (4.60-5.80); Red Cell Distribution Width 12.6 % (11.0-16.0); White Blood Count 8.5 X10*3/uL (4.8-10.8)
[2023-03-24 14:53] LABS: Prothrombin Time 12.5 SEC (11.1-13.3)
[2023-03-24 15:36] LABS: Alanine Aminotransferase 32 U/L (0-40); Albumin Level 4.4 g/dL (3.5-5.0); Alkaline Phosphatase 76 U/L (39-117); Anion Gap 11 (12-20); Aspartate Amino Transferase 20 U/L (5-37); Bilirubin Total 0.9 mg/dL (0.0-1.0); Blood Urea Nitrogen 15 mg/dL (9-16); Calcium 9.6 mg/dL (8.4-10.2); Carbon Dioxide 26 mmol/L (22-29); Chloride 106 mmol/L (96-108); Estimated Glomerular Filt Rate > 60; Glucose Random 111 mg/dL (60-115); Potassium 3.4 mmol/L (3.3-5.1); Sodium 140 mmol/L (135-145); Total Protein 7.7 g/dL (6.5-8.0)
[2023-03-24 15:40] LABS: TSH reflex Free T4 3.14 uIU/mL (0.32-4.0)
== END 2023-03-24 14:08 | disposition home or self-care (01) ==
LOC: HO.LAB 14:07
PROVIDERS: PCP Internal Medicine; Visit Provider Nurse Practitioner Family
DX: Z01.818 Encounter for other preprocedural examination (principal); Z01.812 Encounter for preprocedural laboratory examination
CPT/HCPCS: 36415; 80053; 84443; 85025; 85610; 93005

== ENCOUNTER 2023-05-02 14:07 | Outpatient (AMB) | payer OTHER, SELFPAY ==
--- NOTE | 2023-05-02 14:16 | A.OFFVIS_ITS ---
Intake Vital Signs 05/02/23 14:18 Height 5 ft 9 in Weight 219 lb 5.759 oz BMI 32.4 BP 138/78 Blood Pressure Location Rt brachial Position Sitting Pulse 98 Pulse Source Pulse Oximeter Pulse Oximetry (%) 97 Oxygen Delivery Method Room Air Intake Visit Reasons: srini Vacuum Forming Machine Operator Required: No Parasitology Teacher: Parasitology Teacher offered & declined Accompanied by: Self / Same As Patient Allergies lisinopril Allergy (Severe, Verified 05/02/23 14:38) anaphylaxis gabapentin Adverse Reaction (Intermediate, Verified 05/02/23 14:38) leg edema Medication List - Last Reconciled 05/02/23 by Mychal Long MD amlodipine 10 mg PO DAILY apixaban (Eliquis) 5 mg PO BID atorvastatin 20 mg PO DAILY blood sugar diagnostic ([employer] Ultra Test strips) Use 1 test strip daily blood-glucose meter ([employer] Ultra2 Meter) test once per day buspirone 15 mg PO TID cetirizine (All Day Allergy (cetirizine)) 10 mg PO DAILY PRN 90 days cholecalciferol (vitamin D3) 25 mcg PO DAILY 90 days clonazepam 1 mg PO BEDTIME PRN cyclobenzaprine 10 mg PO TID PRN 30 days dulaglutide (Trulicity) 1.5 mg (0.5 mL) subcut QWEEK 30 days escitalopram oxalate (Lexapro) 20 mg PO DAILY 90 days flash glucose scanning reader (FreeStyle Yuki 2 [place]) As directed flash glucose sensor (FreeStyle Yuki 2 Sensor kit) As directed lancets ([employer] UltraSoft Lancets) Use 1 lancet once a day metformin ER 500 mg PO BID 90 days methylcellulose (laxative) (Citrucel) 500 mg PO TID omeprazole 20 mg PO QAM prazosin 5 mg PO BEDTIME risperidone 2 mg PO BEDTIME trazodone 50 - 100 mg PO DAILY PRN Ventolin HFA 90 mcg/actuation (albuterol sulfate) 2 puffs inhalation Q6H PRN 30 days NS Do you need a note to return to daycare/school/sports/work: No HPI srini HPI Details 52 YEARS OLD GENTLEMAN IS HERE FOR [facility] W-UP FOR HIS SLEEP APNEA. HE CLAIMS THAT SINCE HE HAS THE NEW MASK HE IS USING CPAP ALMOST EVERY NIGHT. HE MISSES USING ONLY FOR NIGHTS OFF AND ON, AND ON THE OTHER NIGHTS HIS MASK SLIPS OFF DURING THE SLEEP. CLAIMS THAT HE IS SLEEPING BETTER. AND DENIES DAYTIME SLEEPINESS BREATHING IS OKAY EXCEPT FOR MILD COUGH OR FEELING OF CHEST TIGHTNESS OFF AND ON. HE DOES USE ALBUTEROL HFA ONCE OR TWICE A DAY. [facility] Medical History Allergic rhinitis Screen for colon cancer Nocturnal hypoxemia SRINI (obstructive sleep apnea) Obesity (BMI 35.0-39.9 without comorbidity) Elevated TSH Family history of throat cancer Chronic sore throat Daytime somnolence Shortness of breath Mild recurrent major depression Polyarthralgia Insomnia Dyslipidemia Mild asthma Essential hypertension Depression with anxiety Diabetes mellitus Surgical History History of esophagogastroduodenoscopy (EGD) Hx of colonoscopy Osteochondroma of femur Donor, kidney History of circumcision Family History Father Liver problem Mother Diabetes Hypertension Stroke Brother Throat cancer Family/Other Mental health disorder Social History Household Members: Friend(s) Housing: Apartment Alcohol intake: former Patient Tobacco Use Status: Former Tobacco user Quit Date: 2007 Tobacco use type: Cigarette e-Cigarette/Vaping Use: Never Used Second Hand Smoke Exposure: No service: No Current occupational status: disabled Current occupation: left hand Cognitive needs: Yes (cane ) Hearing needs: No Vision needs: No Review of Systems Const All systems reviewed & are unremarkable except as noted in HPI and below Eyes Reports no additional complaints ENT Reports nasal congestion (MILD INTERMITTENT) Card Denies irregular heart rhythm and Denies leg edema Resp Denies cough and Reports wheezing (Occasional mild wheezing) GI Denies no additional complaints Reports no additional complaints Musc Reports back pain and Reports other (s/p fracture right femur, has increased pain in the right mid thigh and kn ) Skin/Breast Reports system reviewed and no additional complaints, except as documented Neuro Reports no additional complaints Psych Reports anxiety and Reports depression Endo Reports other (Type 2 diabetes) Arjun/Lymph Reports no additional complaints Aller/Immun Reports wheezing (Occasional mild wheezing) Physical Exam Vital Signs: Last Vital Signs Pulse 98 05/02/23 14:18 BP 138/78 05/02/23 14:18 Pulse Ox 97 05/02/23 14:18 Oxygen Delivery Method Room Air 05/02/23 14:18 BMI result Body Mass Index 32.4 Const Other: Grossly overweight General: comfortable, no acute distress, alert and awake Orientation/consciousness: patient oriented x3 HEENT Head: Yes normal to inspection General nose exam: No nasal polyps present and No nasal discharge present Face and sinus: Yes sinuses nontender Mouth: oropharynx abnormals (Narrow and crowded oropharynx, Mallampati class 4) Throat: Yes posterior oropharynx normal Eyes General: appearance normal, both eyes and all related structures Neck Neck: Yes normal visual inspection, Yes no lymphadenopathy, Yes trachea midline, Yes no JVD and Yes other (Neck size 17 in) Thyroid: Thyroid normal Chest Chest palpation & inspection: normal inspection of the chest, normal palpation of entire chest wall and no tenderness Resp Other: Percussion note is resonant, breath sounds equal on both sides and clear. No wheezes rhonchi or crepitations are heard. Cardio Palpation: normal PMI Rate: regular rate Rhythm: regular rhythm Heart sounds: no gallops and no murmurs GI Palpation (GI): Soft to palpation, nontender, No hepatosplenomegaly present and no masses Auscultation: normal bowel sounds Back/Spine/Pelvis Thoracic/Lumbar Spine: thoracic and lumbar spine normal to inspection, thoraco- lumbar ROM limited and thoraco-lumbar spasm Skin General skin exam: no rashes or lesions noted Neuro General: patient oriented x3 and no focal motor deficits Cranial nerves: Yes CN's II-XII intact bilaterally Extrem General: Yes normal to inspection, Yes no clubbing, cyanosis or edema, Yes no calf tenderness and Yes other (Painful right thigh and knee area) Psych Appearance: grossly normal and well kempt Speech and movement: Normal speech and movement present Results Reviewed Results Reviewed: COMPLIANCE REPORT FOR THE LAST 90 NIGHTS, SHOWS THAT HE HAS USED ONLY FOR 18 NIGHTS. HE DISPUTES THIS DATA, AND SAY IS THAT SINCE MID APRIL HE IS USING EVERY NIGHT. HE IS SLEEPING BETTER. DOES HAVE MILD IRRITATION IN THE THROAT . . ACCORDING TO THE REPORT HIS AVERAGE USE IT PER NIGHT IS 2 HOURS 54 MINUTE. THAT HE AGREES WITH, AND SAY IS THAT A FEW HOURS AFTER PUTTING THE MASK ON HE USUALLY HAPPENS TO PULL IT OFF DURING SLEEP. Assessment & Plan Assessment & Plan (1) Obesity (BMI 35.0-39.9 without comorbidity): Comment: He is moderately obese, trying to lose weight but it is difficult for him. He cannot do any exercise due to pain in the right thigh. Is on multiple medications, cannot follow the diet strictly. Code(s): E66.9 - Obesity, unspecified (2) SRINI (obstructive sleep apnea): Comment: Patient does have severe degree of obstructive sleep apnea with total sleep time AHI 44. And is supposed to be using CPAP . Every night . Pressure setting of 11 cm. He used to have full face mask and now he has a nasal mask but still not using the CPAP regularly. Had a long talk with him and told him that he should use it every night for at least 4-5 hours per night. Code(s): G47.33 - Obstructive sleep apnea (adult) (pediatric) (3) Nocturnal hypoxemia: Comment: He has significant degree of nocturnal hypoxemia, secondary to sleep-related hypoventilation. Once he starts using CPAP regularly I think this will be corrected. We plan to do overnight oximetry recording once he is using CPAP MORE ADEQUATELY . Code(s): G47.34 - Idiopathic sleep related nonobstructive alveolar hypoventilation Coding Level of Care Code Est Pt Level 3 (64336) Diagnoses Obesity (BMI 35.0-39.9 without comorbidity) E66.9 SRINI (obstructive sleep apnea) G47.33 Nocturnal hypoxemia G47.34
[2023-05-02 14:18] VITALS: BP 138/78; PULSE 98; O2SAT 97; BMI 32.4
== END 2023-05-02 14:51 | disposition home or self-care (01) ==
PROVIDERS: PCP Internal Medicine; Visit Provider Internal Medicine
DX: E66.9 Obesity, unspecified (principal); G47.33 Obstructive sleep apnea (adult) (pediatric); G47.34 Idiopathic sleep related nonobstructive alveolar hypoventilation
CPT/HCPCS: 99213

== ENCOUNTER → 2023-05-02 14:07 | Outpatient (BNVA) | payer OTHER, SELFPAY | PROVIDERS: PCP Internal Medicine; Visit Provider Internal Medicine | DX: G47.33 Obstructive sleep apnea (adult) (pediatric) (principal); G47.34 Idiopathic sleep related nonobstructive alveolar hypoventilation; E66.9 Obesity, unspecified; Z68.32 Body mass index [BMI] 32.0-32.9, adult | CPT/HCPCS: 99212 ==

== ENCOUNTER 2023-06-05 09:20 | Outpatient (REF) | payer OTHER, SELFPAY ==
[2023-06-05 11:22] LABS: Alanine Aminotransferase 22 U/L (0-40); Albumin Level 4.2 g/dL (3.5-5.0); Alkaline Phosphatase 73 U/L (39-117); Anion Gap 13 (12-20); Aspartate Amino Transferase 16 U/L (5-37); Bilirubin Total 0.6 mg/dL (0.0-1.0); Blood Urea Nitrogen 16 mg/dL (9-16); Calcium 9.1 mg/dL (8.4-10.2); Carbon Dioxide 26 mmol/L (22-29); Chloride 105 mmol/L (96-108); Cholesterol 134 mg/dL (<200); Estimated Glomerular Filt Rate > 60; Glucose Fasting 141 mg/dL (60-99); HDL Cholesterol 38 mg/dL (>40); LDL Cholesterol Calculated 68 mg/dL (<100); Potassium 3.9 mmol/L (3.3-5.1); Sodium 140 mmol/L (135-145); Total Protein 7.3 g/dL (6.5-8.0); Triglycerides 142 mg/dL (<150)
[2023-06-05 11:26] LABS: Influenza A PCR NEGATIVE (Negative); Influenza B PCR NEGATIVE (Negative); Resp Syncy Virus RNA Qual PCR NEGATIVE (Negative); SARS COV2 PCR INHOUSE NEGATIVE (Negative)
[2023-06-05 11:40] LABS: Free T4 (Free Thyroxine) 0.97 ng/dL (0.71-1.85); Thyroid Stimulating Hormone 3.08 uIU/mL (0.32-4.0); Vitamin D 25-OH Total 31.9 ng/mL (>30)
[2023-06-05 11:40] LABS: Creatinine Urine 124.94 mg/dL; Microalbum/Creatinine Ratio Ur 14.4 ug/mg cr (<30)
[2023-06-06 09:04] LABS: Thyroglobulin Antibodies 1 IU/mL (< or = 1); Thyroid Peroxidase Antibodies 124 IU/mL (<9)
== END 2023-06-05 09:21 | disposition home or self-care (01) ==
LOC: HO.LAB 09:20
PROVIDERS: PCP Internal Medicine; Visit Provider Internal Medicine
DX: R09.89 Other specified symptoms and signs involving the circulatory and respiratory systems (principal); I10 Essential (primary) hypertension; R79.89 Other specified abnormal findings of blood chemistry; E78.5 Hyperlipidemia, unspecified; E55.9 Vitamin D deficiency, unspecified; E06.3 Autoimmune thyroiditis; E11.9 Type 2 diabetes mellitus without complications; Z20.822 Contact with and (suspected) exposure to COVID-19
CPT/HCPCS: 0241U; 80053; 80061; 82043; 82306; 82570; 84439; 84443; 86376; 86800

== ENCOUNTER 2023-06-06 13:15 | Outpatient (AMB) | payer OTHER, SELFPAY ==
--- NOTE | 2023-06-06 13:23 | MHC.PC.OV ---
Vital Signs 06/06/23 13:25 Height 5 ft 9 in Weight 219 lb BMI 32.3 BP 124/86 Blood Pressure Location Lt brachial Position Sitting Intake Visit Reasons: dm Intake Note: Patient here for a follow up DM Operations Controller Required: No Accompanied by: Self / Same As Patient Allergies lisinopril Allergy (Severe, Verified 06/06/23 13:32) anaphylaxis gabapentin Adverse Reaction (Intermediate, Verified 06/06/23 13:32) leg edema Medication List - Last Reconciled 06/06/23 by Asuncion Muhammad MD amlodipine 10 mg PO DAILY apixaban (Eliquis) 5 mg PO BID atorvastatin 20 mg PO DAILY blood sugar diagnostic ([employer] Ultra Test strips) Use 1 test strip daily blood-glucose meter ([employer] Ultra2 Meter) test once per day buspirone 15 mg PO TID cetirizine (All Day Allergy (cetirizine)) 10 mg PO DAILY PRN 90 days cholecalciferol (vitamin D3) 25 mcg PO DAILY 90 days clonazepam 1 mg PO BEDTIME PRN cyclobenzaprine 10 mg PO TID PRN 30 days doxycycline hyclate 100 mg PO BID 5 days dulaglutide (Trulicity) 1.5 mg (0.5 mL) subcut QWEEK 30 days escitalopram oxalate (Lexapro) 20 mg PO DAILY 90 days flash glucose scanning reader (FreeStyle Yuki 2 [place]) As directed flash glucose sensor (FreeStyle Yuki 2 Sensor kit) As directed lancets (OneTouch UltraSoft Lancets) Use 1 lancet once a day metformin ER 500 mg PO BID 90 days methylcellulose (laxative) (Citrucel) 500 mg PO TID omeprazole 20 mg PO QAM prazosin 5 mg PO BEDTIME risperidone 2 mg PO BEDTIME trazodone 50 - 100 mg PO DAILY PRN Ventolin HFA 90 mcg/actuation (albuterol sulfate) 2 puffs inhalation Q6H PRN 30 days NS Tobacco use date assessed: 03/24/23 Dental Screening Dental Screen Date: 06/06/23 Did you have a dental visit in the last 12 months?: Yes Did you have a dental problem in the last 6 months where you did not have access to dental care?: No Was dental information given to patient?: Patient has dentist HPI HPI Comments History of Present Illness Details This is a 52-year-old male with diabetes mellitus type 2, hypertension, mild recurrent major depression and autoimmune thyroiditis that comes today for follow-up on his conditions. Fasting blood glucose mildly elevated and I will replace Trulicity with Ozempic. Blood pressure stable. Depression well control with escitalopram. Last TSH was normal. Walks with a cane for gait stability due to chronic right leg pain. No chest pain or shortness of breath. Compliant with medications. [facility] Medical History Allergic rhinitis Screen for colon cancer Nocturnal hypoxemia SRINI (obstructive sleep apnea) Obesity (BMI 35.0-39.9 without comorbidity) Elevated TSH Family history of throat cancer Chronic sore throat Daytime somnolence Shortness of breath Mild recurrent major depression Polyarthralgia Insomnia Dyslipidemia Mild asthma Essential hypertension Depression with anxiety Diabetes mellitus Surgical History (Updated 06/06/23 @ 13:28 by CHRIS Weathers) History of esophagogastroduodenoscopy (EGD) Hx of colonoscopy Osteochondroma of femur Donor, kidney History of circumcision Family History Father Liver problem Mother Diabetes Hypertension Stroke Brother Throat cancer Family/Other Mental health disorder Household Members: Friend(s) Housing: Apartment Alcohol intake: former Patient Tobacco Use Status: Former Tobacco user Quit Date: 2007 Tobacco use type: Cigarette e-Cigarette/Vaping Use: Never Used Second Hand Smoke Exposure: No service: No Current occupational status: disabled Current occupation: left hand Cognitive needs: Yes (cane ) Hearing needs: No Vision needs: No Questionnaire Thrive Questionnaire Date Thrive assessed: 08/16/22 JYOTHI-7 AMB Questionnaire JYOTHI-7 Date JYOTHI - 7 assessed: 08/16/22 Source: Developed by Drs. Percy Licea, Renetta Kline, Graham Pacheco and colleagues, with an educational levy from [employer]. Review of Systems Const All systems reviewed & are unremarkable except as noted in HPI and below Eyes Reports no additional complaints, Denies change in vision and Denies other visual disturbances Card Denies chest pain at rest, Denies chest pain with activity, Denies edema, Denies irregular heart rhythm, Denies claudication, Denies dyspnea, Denies dyspnea on exertion, Denies orthopnea, Denies paroxysmal nocturnal dyspnea and Denies slow heart rate Resp Denies cough, Denies dyspnea and Denies dyspnea on exertion GI Denies abdominal pain, Denies change in bowel habits, Denies excessive flatus, Denies nausea and Denies vomiting Denies urinary hesitancy, Denies urinary incontinence and Denies urinary urgency Musc Denies abnormal gait, Denies atrophy, Denies deformity and Denies limited range of motion Skin/Breast Denies bleeding lesions, Denies changing lesions and Denies rash Neuro Denies abnormal gait and Denies lack of coordination Physical exam (Primary Care) Vital Signs: Last Vital Signs BP 124/86 06/06/23 13:25 BMI result Body Mass Index 32.3 Tobacco/Smoking Status: Tobacco use Status Tobacco use date assessed 03/24/23 06/06/23 13:29 Patient Tobacco Use Status Former Tobacco user 06/06/23 13:29 Tobacco use type Cigarette 06/06/23 13:29 e-Cigarette/Vaping Use Never Used 06/06/23 13:29 Thrive Assessment: Date of Thrive Assessment Date Thrive assessed 08/16/22 06/06/23 13:29 Eyes General: appearance normal, both eyes and all related structures Eyelids: Yes eyelids normal Conjunctivae: conjunctivae normal Neck Neck: Yes normal visual inspection and Yes supple Resp Effort & Inspection: normal respiratory effort Auscultation: clear to auscultation bilaterally Cardio Jugular venous distension: no JVD Rate: regular rate Rhythm: regular rhythm Heart sounds: S1 normal heart sound present and S2 normal heart sound present Extrem General: Yes full ROM Assessment and Plan Assessment & Plan (1) Diabetes mellitus: Code(s): E11.9 - Type 2 diabetes mellitus without complications Qualifiers: Diabetes mellitus type: type 2 Diabetes mellitus mcfp insulin use: without mcfp use Diabetes mellitus complication status: without complication Qualified Code(s): E11.9 - Type 2 diabetes mellitus without complications Plan: Continue metformin. Discontinue Trulicity. Start Ozempic. A1c goal is equal or less than 7%. (2) Essential hypertension: Code(s): I10 - Essential (primary) hypertension Plan: Continue amlodipine. Blood pressure goal is equal or less than 130/80. (3) Mild recurrent major depression: Code(s): F33.0 - Major depressive disorder, recurrent, mild Plan: Continue escitalopram. (4) Autoimmune thyroiditis: Code(s): E06.3 - Autoimmune thyroiditis Plan: Monitor TSH. Orders: Orders Lipid Panel 7 Months E78.5 - Hyperlipidemia, unspecified Thyroid Stimulating Hormone 7 Months E06.3 - Autoimmune thyroiditis Comprehensive [place]. Panel Fast 7 Months E11.9 - Type 2 diabetes mellitus without complications Medications: New semaglutide (Ozempic) for 4 weeks 0.25 mg (0.368 mL) subcut QWEEK 1.472 mL 0RF 28 days E11.9 - Type 2 diabetes mellitus without complications Discontinued dulaglutide (Trulicity) Discontinued Reason: Patient Completed Course 1.5 mg (0.5 mL) subcut QWEEK 30 days 2.5 mL 6RF E11.9 - Type 2 diabetes mellitus without complications Coding Level of Care Code Est Pt Level 4 (80112) Diagnoses Type 2 diabetes mellitus without complication, without long-term current use of insulin E11.9 Diabetes mellitus type: type 2 Diabetes mellitus long term acute care registered nurse insulin use: without mcfp use Diabetes mellitus complication status: without complication Essential hypertension I10 Mild recurrent major depression F33.0 Autoimmune thyroiditis E06.3 Time Spent (min) 23
[2023-06-06 13:25] VITALS: BP 124/86; BMI 32.3
== END 2023-06-06 13:43 | disposition home or self-care (01) ==
PROVIDERS: PCP Internal Medicine; Visit Provider Internal Medicine
DX: E11.9 Type 2 diabetes mellitus without complications (principal); I10 Essential (primary) hypertension; F33.0 Major depressive disorder, recurrent, mild; E06.3 Autoimmune thyroiditis
CPT/HCPCS: 99214

== ENCOUNTER → 2023-07-11 14:00 | Outpatient (BNV) | payer OTHER, SELFPAY | PROVIDERS: PCP Internal Medicine; Referring Provider Nurse Practitioner Family; Visit Provider Internal Medicine | DX: I82.401 Acute embolism and thrombosis of unspecified deep veins of right lower extremity (principal) | CPT/HCPCS: 99213 ==

== ENCOUNTER 2023-08-07 10:49 | Outpatient (REF) | payer OTHER, SELFPAY ==
[2023-08-07 11:13] LABS: MANUAL DIFF FLAG NO
[2023-08-07 11:52] LABS: Basophils Absolute Auto 0.1 X10*3/uL (0.0-0.2); Basophils Percent Auto 1.3 % (0-2); Eosinophils Absolute Auto 0.2 X10*3/uL (0.0-0.4); Eosinophils Percent Auto 2.7 % (0-4); Imm Gran Abs Auto 0.03 X10*3/uL (0.00-0.03); Imm Gran Pct Auto 0.4 % (0.0-0.4); Lymphocytes Absolute Auto 3.1 X10*3/uL (1.2-4.9); Lymphocytes Percent Auto 39.5 % (20-40); Mean Corpuscular HGB Conc 32.6 g/dl (31.0-36.0); Mean Corpuscular Volume 88.8 fL (80.0-98.0); Mean Platelet Volume 10.5 fL (9.4-12.4); Monocytes Absolute Auto 0.7 X10*3/uL (0.1-1.2); Monocytes Percent Auto 8.9 % (2-11); Neutrophils Absolute Auto 3.7 x10*3/uL (2.0-8.3); Neutrophils Percent Auto 47.2 % (45-73); Platelet Count 237 X10*3/uL (160-400); Red Blood Count 5.18 X10*6/uL (4.60-5.80); Red Cell Distribution Width 12.5 % (11.0-16.0); White Blood Count 7.9 X10*3/uL (4.8-10.8)
[2023-08-07 12:27] LABS: Alanine Aminotransferase 28 U/L (0-40); Albumin Level 4.2 g/dL (3.5-5.0); Alkaline Phosphatase 73 U/L (39-117); Anion Gap 12 (12-20); Aspartate Amino Transferase 17 U/L (5-37); Bilirubin Total 0.7 mg/dL (0.0-1.0); Blood Urea Nitrogen 16 mg/dL (9-16); Calcium 9.6 mg/dL (8.4-10.2); Carbon Dioxide 28 mmol/L (22-29); Chloride 105 mmol/L (96-108); Cholesterol 126 mg/dL (<200); Estimated Glomerular Filt Rate > 60; Glucose Fasting 128 mg/dL (60-99); HDL Cholesterol 34 mg/dL (>40); LDL Cholesterol Calculated 64 mg/dL (<100); Potassium 3.9 mmol/L (3.3-5.1); Sodium 141 mmol/L (135-145); Total Protein 7.6 g/dL (6.5-8.0); Triglycerides 143 mg/dL (<150)
[2023-08-07 12:53] LABS: Appearance Urine Clear; Color Urine Yellow; Glucose Urine UA Negative (Negative); Leukocyte Esterase Urine Negative (Negative); Nitrite Urine Negative (Negative); Urine Blood Negative (Negative); Urine Ketones Negative (Negative); Urine Protein Negative (Neg-Trace)
[2023-08-07 12:55] LABS: Free T4 (Free Thyroxine) 0.99 ng/dL (0.71-1.85); Vitamin D 25-OH Total 33.7 ng/mL (>30)
[2023-08-07 14:23] LABS: Creatinine Urine 181.21 mg/dL; Microalbum/Creatinine Ratio Ur 12.6 ug/mg cr (<30)
== END 2023-08-07 10:50 | disposition home or self-care (01) ==
LOC: HO.LAB 10:49
PROVIDERS: PCP Internal Medicine; Visit Provider Internal Medicine
DX: E11.9 Type 2 diabetes mellitus without complications (principal); R79.89 Other specified abnormal findings of blood chemistry; E78.5 Hyperlipidemia, unspecified; I10 Essential (primary) hypertension; D64.9 Anemia, unspecified; E55.9 Vitamin D deficiency, unspecified; R30.0 Dysuria
CPT/HCPCS: 36415; 80053; 80061; 81003; 82043; 82306; 82570; 84439; 84443; 85025

== ENCOUNTER 2023-09-25 10:01 | Outpatient (REF) | payer OTHER, SELFPAY ==
[2023-09-25 12:41] LABS: Alanine Aminotransferase 45 U/L (0-40); Albumin Level 3.9 g/dL (3.5-5.0); Alkaline Phosphatase 73 U/L (39-117); Anion Gap 11 (12-20); Aspartate Amino Transferase 23 U/L (5-37); Bilirubin Total 0.7 mg/dL (0.0-1.0); Blood Urea Nitrogen 17 mg/dL (9-16); Calcium 9.3 mg/dL (8.4-10.2); Carbon Dioxide 26 mmol/L (22-29); Chloride 107 mmol/L (96-108); Estimated Glomerular Filt Rate > 60; Glucose Fasting 212 mg/dL (60-99); Potassium 3.9 mmol/L (3.3-5.1); Sodium 140 mmol/L (135-145); Total Protein 7.4 g/dL (6.5-8.0)
[2023-09-27 22:04] LABS: TS Negative Control Passed; TS Panel A 0; TS Panel B 0; TS Positive Control Passed; TSpotTB Negative (Negative)
== END 2023-09-25 10:02 | disposition home or self-care (01) ==
LOC: HO.LAB 10:01
PROVIDERS: PCP Internal Medicine; Visit Provider Internal Medicine
DX: R42 Dizziness and giddiness (principal); Z11.1 Encounter for screening for respiratory tuberculosis
CPT/HCPCS: 36415; 80053; 86481

== ENCOUNTER 2024-01-03 08:45 | Outpatient (REF) | payer OTHER, SELFPAY ==
[2024-01-03 10:05] LABS: Alanine Aminotransferase 33 U/L (0-40); Albumin Level 4.1 g/dL (3.5-5.0); Alkaline Phosphatase 71 U/L (39-117); Anion Gap 13 (12-20); Aspartate Amino Transferase 22 U/L (5-37); Bilirubin Total 0.7 mg/dL (0.0-1.0); Blood Urea Nitrogen 14 mg/dL (9-16); Carbon Dioxide 26 mmol/L (22-29); Chloride 106 mmol/L (96-108); Cholesterol 126 mg/dL (<200); Estimated Glomerular Filt Rate > 60; Glucose Fasting 146 mg/dL (60-99); HDL Cholesterol 32 mg/dL (>40); LDL Cholesterol Calculated 42 mg/dL (<100); Potassium 3.8 mmol/L (3.3-5.1); Sodium 141 mmol/L (135-145); Total Protein 7.5 g/dL (6.5-8.0); Triglycerides 264 mg/dL (<150)
[2024-01-03 10:21] LABS: Thyroid Stimulating Hormone 2.76 uIU/mL (0.32-4.0)
== END 2024-01-03 08:46 | disposition home or self-care (01) ==
LOC: HO.LAB 08:45
PROVIDERS: PCP Internal Medicine; Visit Provider Internal Medicine
DX: E78.5 Hyperlipidemia, unspecified (principal); E06.3 Autoimmune thyroiditis; E11.9 Type 2 diabetes mellitus without complications
CPT/HCPCS: 36415; 80053; 80061; 84443

== ENCOUNTER 2024-01-08 12:58 | Outpatient (AMB) | payer OTHER, SELFPAY ==
[2024-01-08 13:09] VITALS: BP 118/80; BMI 32.3
--- NOTE | 2024-01-08 13:09 | A.OFFPC_ITS ---
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: No Accompanied by: Self / Same As Patient Allergies lisinopril Allergy (Severe, Verified 01/08/24 13:25) anaphylaxis gabapentin Adverse Reaction (Intermediate, Verified 01/08/24 13:25) leg edema Medication List - Last Reconciled 01/08/24 by Asuncion Muhammad MD amlodipine 10 mg PO DAILY atorvastatin 20 mg PO DAILY blood sugar diagnostic ([employer] Ultra Test strips) Use 1 test strip daily blood-glucose meter (Tixersuch Ultra2 Meter) test once per day buspirone 15 mg PO TID cane As directed cetirizine (All Day Allergy (cetirizine)) 10 mg PO DAILY PRN 90 days cholecalciferol (vitamin D3) 25 mcg PO DAILY 90 days clonazepam 1 mg PO BEDTIME PRN cyclobenzaprine 10 mg PO TID PRN 30 days escitalopram oxalate (Lexapro) 20 mg PO DAILY 90 days flash glucose scanning reader (hovelstayStyle Yuki 2 Gwinner) As directed flash glucose sensor (FreeStyle Yuki 2 Sensor kit) As directed lancets (Tixersuch UltraSoft Lancets) Use 1 lancet once a day metformin ER 500 mg PO BID 90 days methylcellulose (laxative) (Citrucel) 500 mg PO TID omeprazole 20 mg PO QAM prazosin 5 mg PO BEDTIME risperidone 2 mg PO BEDTIME semaglutide (Ozempic) 1 mg (0.75 mL) subcut QWEEK 4 weeks trazodone 50 - 100 mg PO DAILY PRN Ventolin HFA 90 mcg/actuation (albuterol sulfate) 2 puffs inhalation Q6H PRN 30 days NS Tobacco use date assessed: 01/08/24 Dental Screening Dental Screen Date: 01/08/24 Did you have a dental visit in the last 12 months?: No Did you have a dental problem in the last 6 months where you did not have access to dental care?: No Was dental information given to patient?: Patient has dentist HPI HPI Comments History of Present Illness Details This is a 53-year-old male with diabetes mellitus type 2, asthma with COPD and severe recurrent major depression that comes for his physical exam. A1c within goal. I will increase Ozempic from 1 mg to 2 mg. Asthma with COPD has been stable and this is follow by pulmonology. He denies any suicidal thoughts and he is depression with anxiety is follow by Psychiatry and counseling. Last colonoscopy was 2021 showing tubular adenoma and hyperplastic polyp and needs another colonoscopy in 2026. Walks with a cane for gait stability due to chronic right leg pain. Had a urine toxicology positive on fentanyl in the past and this is why I discontinue opiates. He will be referred to pain management for this matter. [facility] Medical History (Updated 01/08/24 @ 13:40 by Asuncion Muhammad MD) JEANNETTE (acute kidney injury) Right leg DVT Allergic rhinitis Screen for colon cancer Nocturnal hypoxemia SRINI (obstructive sleep apnea) Obesity (BMI 35.0-39.9 without comorbidity) Elevated TSH Family history of throat cancer Chronic sore throat Daytime somnolence Shortness of breath Mild recurrent major depression Polyarthralgia Insomnia Dyslipidemia Mild asthma Essential hypertension Depression with anxiety Diabetes mellitus Surgical History History of esophagogastroduodenoscopy (EGD) Hx of colonoscopy Osteochondroma of femur Donor, kidney History of circumcision Family History Father Liver problem Mother Diabetes Hypertension Stroke Brother Throat cancer Family/Other Mental health disorder Social History Household Members: Friend(s) Housing: Apartment Alcohol intake: former Patient Tobacco Use Status: Former Tobacco user Tobacco use type: Cigarette e-Cigarette/Vaping Use: Never Used Second Hand Smoke Exposure: No service: No Current occupational status: disabled Current occupation: left hand Cognitive needs: Yes (cane ) Hearing needs: No Vision needs: No Questionnaire PHQ-9 Over the last 2 weeks, how often have you been bothered by any of the following problems? 1. Little interest or pleasure in doing things: nearly every day 2. Feeling down, depressed, or hopeless: nearly every day 3. Trouble falling or staying asleep, or sleeping too much: nearly every day 4. Feeling tired or having little energy: nearly every day 5. Poor appetite or overeating: nearly every day 6. Feeling bad about yourself - or that you are a failure or have let yourself or your family down: nearly every day 7. Trouble concentrating on things, such as reading the newspaper or watching television: nearly every day 8. Moving or speaking so slowly that other people could have noticed. Or the opposite - being so fidgety or restless that you have been moving around a lot more than usual: more than half the days 9. Thoughts that you would be better off or of hurting yourself in some way: not at all Total score: 23 Depression Screening Interpretation: Positive Depression Screening Follow-up: Existing condition, In treatment, Community Mental Health Worker F/U and Follow- up Visit Requested Depression Screening Done: Yes 55516 - PHQ-9 Billing: Yes Source: Developed by Drs. Percy Licea, Renetta Kline, Graham Pacheco and colleagues, with an educational levy from [employer]. Thrive Questionnaire Date Thrive assessed: 01/08/24 I am a: Patient What is your living situation today?: I have a steady place to live Within the past 12 months, did the food you bought not last and you didn't have the money to get more?: Never true Within the past 12 months, did you worry whether your food would run out before you got money to buy more?: Never true Do you have trouble paying for medicines?: No Do you have trouble getting transportation to medical appointments?: No Do you have trouble paying your heating and electricity bill?: No Do you have trouble taking care of your child, family member or friend?: No Do you have trouble with day-to-day activities such as bathing, preparing meals, shopping, managing finances, etc.?: No Are you currently unemployed and looking for a job?: No Are you interested in more education?: No Please select the resources that you would like help with: None Currently or been in a relationship where the following occur: no concerns reported THRIVE Score: 0 AUDIT C Alcohol Use Questionnaire (AUDIT-C) 1. How often do you have a drink containing alcohol?: Never Total Score: 0 Score Reviewed/Action Taken: No JYOTHI-7 AMB Questionnaire JYOTHI-7 Date JYOTHI - 7 assessed: 01/08/24 Feeling nervous, anxious, or on edge: 2 = More than half the days Not being able to stop or control worryin = More than half the days Worrying too much about different things: 2 = More than half the days Trouble relaxin = More than half the days Being so restless that it is hard to sit still: 3 = Nearly every day Becoming easily annoyed or irritable: 3 = Nearly every day Feeling afraid as if something awful might happen: 2 = More than half the days Total JYOTHI-7 score (0-4 normal; 5-9 mild; 10-14 moderate; 15-21 severe): 16 Source: Developed by Drs. Percy Licea, Renetta Kline, Graham Pacheco and colleagues, with an educational levy from [employer]. JYOTHI-7 Assessment Billing JYOTHI-7 Assessment Tool: JYOTHI-7 Assessment 43285 Review of Systems Const All systems reviewed & are unremarkable except as noted in HPI and below Card Denies chest pain at rest, Denies chest pain with activity, Denies edema, Denies irregular heart rhythm, Denies claudication, Denies dyspnea, Denies dyspnea on exertion, Denies orthopnea, Denies paroxysmal nocturnal dyspnea and Denies slow heart rate Resp Denies cough, Denies dyspnea and Denies dyspnea on exertion Musc Reports arthralgias Neuro Denies behavioral changes and Denies lack of coordination Psych Denies behavioral changes Physical exam (Primary Care) Vital Signs: Last Vital Signs BP 118/80 01/08/24 13:09 BMI result Body Mass Index 32.3 BMI Assessment/Plan discussion: High BMI High, discussed plan: lifestyle, weight reduction, dietary and physical activity Tobacco/Smoking Status: Tobacco use Status Tobacco use date assessed 01/08/24 01/08/24 13:12 Patient Tobacco Use Status Former Tobacco user 01/08/24 13:12 Tobacco use type Cigarette 01/08/24 13:12 e-Cigarette/Vaping Use Never Used 01/08/24 13:12 PHQ-9: PHQ-9 Score PHQ-9: Total score 01/08/24 13:17 Depression Screening Interpretation: Positive Depression Screening Follow-up: Existing condition, In treatment, Community Mental Health Worker F/U and Follow- up Visit Requested Thrive Assessment: Date of Thrive Assessment Date Thrive assessed 01/08/24 01/08/24 13:17 Currently or been in a relationship where the following occur: no concerns reported Const Limitations: ambulation with cane HENMT Head: Yes normal to inspection, Yes normocephalic and Yes atraumatic Ears: external ears normal Eyes General: appearance normal, both eyes and all related structures Eyelids: Yes eyelids normal Conjunctivae: conjunctivae normal Neck Neck: Yes normal visual inspection and Yes supple Resp Effort & Inspection: normal respiratory effort Auscultation: clear to auscultation bilaterally Cardio Jugular venous distension: no JVD Rate: regular rate Rhythm: regular rhythm Heart sounds: S1 normal heart sound present and S2 normal heart sound present GI Inspection: Yes normal to inspection Palpation (GI): Soft to palpation and nontender Auscultation: normal bowel sounds Skin General skin exam: no rashes or lesions noted Neuro General: no focal motor deficits Extrem General: Yes full ROM Psych Appearance: grossly normal Results AMB Hemoglobin A1c AMB Hemoglobin A1c 6.5 % Last Edit by CHRIS Weathers on 01/08/24 13:1 7 Results Reviewed Results Reviewed: Laboratory Last Values Hgb A1c (Clinic) 6.5 % (4.0-6.0) H 01/08/24 13:06 Assessment and Plan Assessment & Plan (1) Physical exam: Code(s): Z00.00 - Encounter for general adult medical examination without abnormal findings Plan: Repeat in a year. (2) Asthma with COPD: Comment: History of asthma/COPD. Currently doing well with p.r.n. use of albuterol HFA( VENTOLIN ) 2 puffs Q 4-6 hours p.r.n. which he uses once or twice a day. ADVISED TO CONTINUE THE SAME. Code(s): J44.9 - Chronic obstructive pulmonary disease, unspecified Plan: Use rescue inhaler as needed. Follow-up with pulmonology. (3) Diabetes mellitus: Code(s): E11.9 - Type 2 diabetes mellitus without complications Qualifiers: Diabetes mellitus type: type 2 Diabetes mellitus parts counterman insulin use: without skilled nursing use Diabetes mellitus complication status: without complication Qualified Code(s): E11.9 - Type 2 diabetes mellitus without complications Plan: Continue metformin. Increase Ozempic to 2 mg. A1c goal is equal or less than 7%. Do yearly diabetic eye exam. (4) Severe recurrent major depression without psychotic features: Code(s): F33.2 - Major depressive disorder, recurrent severe without psychotic features Plan: Continue escitalopram. Follow-up with psychiatry and counseling. (5) Right leg pain: Code(s): M79.604 - Pain in right leg Plan: Referred to pain management. Orders: Orders Microalbumin, Random (w Creat) 4 Months E11.9 - Type 2 diabetes mellitus without complications Comprehensive [place]. Panel Fast 4 Months E11.9 - Type 2 diabetes mellitus without complications Thyroid Stimulating Hormone 4 Months E06.3 - Autoimmune thyroiditis AMB Hemoglobin A1c Today E11.9 - Type 2 diabetes mellitus without complications Lipid Panel 4 Months E78.5 - Hyperlipidemia, unspecified Vitamin D 25-OH Total 4 Months E55.9 - Vitamin D deficiency, unspecified Referrals Pain Management Referral M79.604 - Pain in right leg Medications: New semaglutide (Ozempic) 2 mg (0.75 mL) subcut QWEEK 4 weeks 3 mL 6RF E11.9 - Type 2 diabetes mellitus without complications Discontinued semaglutide (Ozempic) Discontinued Reason: Patient Completed Course 1 mg (0.75 mL) subcut QWEEK 4 weeks 3 mL 6RF Coding Level of Care Code Est Pt Level 3 (36520) Est Pt Prev Care 40-64y(80700) Diagnoses Physical exam Z00.00 Asthma with COPD J44.9 Type 2 diabetes mellitus without complication, without long-term current use of insulin E11.9 Diabetes mellitus type: type 2 Diabetes mellitus skilled nursing insulin use: without parts counterman use Diabetes mellitus complication status: without complication Severe recurrent major depression without psychotic features F33.2 Right leg pain M79.604 Additional Codes JYOTHI-7 Assessment Billing - JYOTHI-7 Assessment Tool: JYOTHI-7 Assessment 28461 ([id number]) Time Spent (min) 35
== END 2024-01-08 13:38 | disposition home or self-care (01) ==
PROVIDERS: PCP Internal Medicine; Visit Provider Internal Medicine
DX: Z00.00 Encounter for general adult medical examination without abnormal findings (principal); J44.9 Chronic obstructive pulmonary disease, unspecified; E11.9 Type 2 diabetes mellitus without complications; F33.2 Major depressive disorder, recurrent severe without psychotic features; M79.604 Pain in right leg
CPT/HCPCS: 83036; 99213; 99396

== ENCOUNTER 2024-06-20 11:19 | Outpatient (AMB) | payer OTHER, SELFPAY ==
--- NOTE | 2024-06-20 11:20 | MHC.PC.OV ---
Vital Signs 06/20/24 11:21 Comment weight, ht, bp not taken patient visit via telehealth Intake Visit Reasons: dm, depression with anxiety/[phone] [employer] Workers Required: No Accompanied by: Self / Same As Patient Allergies lisinopril Allergy (Severe, Verified 06/20/24 11:33) anaphylaxis gabapentin Adverse Reaction (Intermediate, Verified 06/20/24 11:33) leg edema Medication List - Last Reconciled 06/20/24 by Asuncion Muhammad MD amlodipine 10 mg PO DAILY aripiprazole (Abilify) 20 mg PO BEDTIME 90 days atorvastatin 20 mg PO DAILY blood pressure test kit-large (Advocate Blood Pressure Monitor kit) As directed blood sugar diagnostic ([employer]her[employer] Biosciencesuch Ultra Test strips) Use 1 test strip daily blood-glucose meter ([employer]uch Ultra2 Meter) test once per day buspirone 15 mg PO TID cane As directed cetirizine (All Day Allergy (cetirizine)) 10 mg PO DAILY PRN 90 days cholecalciferol (vitamin D3) 25 mcg PO DAILY 90 days clonazepam 1 mg PO BEDTIME PRN cyclobenzaprine 10 mg PO TID PRN 30 days escitalopram oxalate (Lexapro) 20 mg PO DAILY 90 days flash glucose scanning reader (FreeStyle Yuki 2 Riley) As directed flash glucose sensor (FreeStyle Yuki 2 Sensor kit) As directed Knee brace As directed lancets ([employer] UltraSoft Lancets) Use 1 lancet once a day metformin ER 500 mg PO BID 90 days methylcellulose (laxative) (Citrucel) 500 mg PO TID omeprazole 20 mg PO QAM prazosin 5 mg PO BEDTIME risperidone 2 mg PO BEDTIME semaglutide (Ozempic) 1 mg (0.75 mL) subcut QWEEK 4 weeks Shower Chair As directed trazodone 50 - 100 mg PO DAILY PRN Ventolin HFA 90 mcg/actuation (albuterol sulfate) 2 puffs inhalation Q6H PRN 30 days NS Tobacco use date assessed: 01/08/24 Dental Screening Dental Screen Date: 01/08/24 HPI HPI Comments History of Present Illness Details The patient is a 53-year-old male presenting with a review and management of Type 2 Diabetes Mellitus. He has been on 1 mg of Ozempic to manage his diabetes, achieving an A1c of 6.5 in December, which is below the 7% goal. Despite this, he expresses concerns about weight loss compared to a peer using a different medication. The patient has been informed about an adjustment to Ozempic to 2 mg to enhance glycemic control without precise numerical weight outcomes discussed. He has also asked about a medication called Ginovy though this was not elaborately discussed in this visit. His hypertension is managed with Amlodipine 10 mg. Hyperlipidemia is treated with Atorvastatin 20 mg. For Generalized Anxiety Disorder and Major Depressive Disorder, he is on Buspirone, Escitalopram, Aripiprazole (Abilify), and Clonazepam. These psychiatric conditions are reported as stable under current psychiatric care, though he notes issues with energy and motivation. GERD is managed with Omeprazole. He also has a sleep disturbance addressed with Risperidone and Prazosin. No current issues with hypoglycemia were reported, and home glucose monitoring is performed, keeping values generally satisfactory. [facility] Medical History (Updated 06/20/24 @ 11:52 by Asuncion Muhammad MD) JEANNETTE (acute kidney injury) Right leg DVT Allergic rhinitis Screen for colon cancer Nocturnal hypoxemia SRINI (obstructive sleep apnea) Obesity (BMI 35.0-39.9 without comorbidity) Elevated TSH Family history of throat cancer Chronic sore throat Daytime somnolence Shortness of breath Mild recurrent major depression Polyarthralgia Insomnia Dyslipidemia Mild asthma Essential hypertension Depression with anxiety Diabetes mellitus Surgical History History of esophagogastroduodenoscopy (EGD) Hx of colonoscopy Osteochondroma of femur Donor, kidney History of circumcision Family History Father Liver problem Mother Diabetes Hypertension Stroke Brother Throat cancer Family/Other Mental health disorder Social History Household Members: Friend(s) Housing: Apartment Alcohol intake: former Patient Tobacco Use Status: Former Tobacco user Tobacco use type: Cigarette e-Cigarette/Vaping Use: Never Used Second Hand Smoke Exposure: No service: No Current occupational status: disabled Current occupation: left hand Cognitive needs: Yes (cane ) Hearing needs: No Vision needs: No Questionnaire Thrive Questionnaire Date Thrive assessed: 01/08/24 JYOTHI-7 AMB Questionnaire JYOTHI-7 Date JYOTHI - 7 assessed: 01/08/24 Source: Developed by Drs. Percy Licea, Renetta Kline, Graham Pacheco and colleagues, with an educational levy from [employer]. Review of Systems Const Details: - Psychiatric: Reports persistent issues with energy and motivation affecting his daily activities. - Neurological: No specific complaints noted. - Metabolic/Endocrine: Denies incidents of hypoglycemia. - Musculoskeletal: Reports subjective difficulty in performing tasks due to leg discomfort. Physical exam (Primary Care) Tobacco/Smoking Status: Tobacco use Status Tobacco use date assessed 01/08/24 06/20/24 11:25 Patient Tobacco Use Status Former Tobacco user 06/20/24 11:25 Tobacco use type Cigarette 06/20/24 11:25 e-Cigarette/Vaping Use Never Used 06/20/24 11:25 Thrive Assessment: Date of Thrive Assessment Date Thrive assessed 01/08/24 12 11:25 General: No apparent distress, well nourished Head: Normocephalic Eyes: Non-icteric, pupils appear grossly symmetric Mouth: Moist mucous membranes, airway patent Neck: Trachea midline Lungs: No respiratory distress, speaks in full sentences Neurologic: Alert and cooperative, no dysarthria, face appears symmetric Psychiatric: Affect normal, thought pattern linear, depression quite stable Skin: No facial diaphoresis, no gross jaundice, no visible rash on exposed skin Note: This physical exam was conducted in conjunction with the patient via our Telehealth platform. Telehealth Telehealth Telehealth Platform: Other (please specify) (facetime) Location of provider rendering services: practice address Location of patient: address on file Patient Identification confirmed using: Name, : Yes Telehealth method: video Patient verbally consented to treatment: Yes Patient verbally consented to billing insurance company: Yes Patient informed of any privacy concerns related to visit: Yes Minutes spent on Phone/Video with Pt.: 15 Coding Level of Care Code Tele Est Pt Level 4 (39075) Complex EM visit Add On G2211 Diagnoses Type 2 diabetes mellitus without complication, without long-term current use of insulin E11.9 Diabetes mellitus type: type 2 Diabetes mellitus local company intermodal truck driver insulin use: without jail use Diabetes mellitus complication status: without complication Essential hypertension I10 Insomnia G47.00 Dyslipidemia E78.5 Mild major depression F32.0 JYOTHI (generalized anxiety disorder) F41.1 Time Spent (min) 15 Assessment & Plan Assessment & Plan (1) Diabetes mellitus: Code(s): E11.9 - Type 2 diabetes mellitus without complications Category: Medical Qualifiers: Diabetes mellitus type: type 2 Diabetes mellitus local company intermodal truck driver insulin use: without local company intermodal truck driver use Diabetes mellitus complication status: without complication Qualified Code(s): E11.9 - Type 2 diabetes mellitus without complications (2) Essential hypertension: Code(s): I10 - Essential (primary) hypertension Category: Medical (3) Insomnia: Code(s): G47.00 - Insomnia, unspecified Category: Medical (4) Dyslipidemia: Code(s): E78.5 - Hyperlipidemia, unspecified Category: Medical (5) Mild major depression: Code(s): F32.0 - Major depressive disorder, single episode, mild Category: Medical (6) JYOTHI (generalized anxiety disorder): Code(s): F41.1 - Generalized anxiety disorder Category: Medical Plan - Diabetes Mellitus Type 2: Increase Ozempic to 2 mg given the previous satisfactory A1c levels and the patient's expressed need for enhanced effects. Continue monitoring home glucose levels. - Hypertension: Continue current regimen with Amlodipine 10 mg. - Hyperlipidemia: Continue Atorvastatin 20 mg. - Generalized Anxiety Disorder and Major Depressive Disorder: Continue current psychiatric medications Buspirone, Escitalopram, Abilify) with ongoing psychiatric care. - Gastroesophageal Reflux Disease: Continue Omeprazole for management. - Sleep Disturbance: Maintain current treatment with Risperidone and Prazosin. - Monitor side effects and efficacy of the increased Ozempic dosage. Follow-up labs are recommended in four months to reassess glycemic control. Patient was informed and verbally consented to the use of an ambient scribe for clinic note documentation during this visit. Orders: Orders Lipid Panel 4 Months E78.5 - Hyperlipidemia, unspecified Microalbumin, Random (w Creat) 4 Months R80.9 - Proteinuria, unspecified Vitamin D 25-OH Total 4 Months E55.9 - Vitamin D deficiency, unspecified Comprehensive [place]. Panel Fast 4 Months E11.9 - Type 2 diabetes mellitus without complications Medications: New semaglutide (Ozempic) 2 mg (0.75 mL) subcut QWEEK 4 weeks 3 mL 6RF E11.9 - Type 2 diabetes mellitus without complications Discontinued semaglutide (Ozempic) Discontinued Reason: Patient Completed Course 1 mg (0.75 mL) subcut QWEEK 4 weeks 3 mL 6RF E11.9 - Type 2 diabetes mellitus without complications
== END 2024-06-20 13:35 | disposition home or self-care (01) ==
LOC: HO.HMCH 11:19
PROVIDERS: PCP Internal Medicine; Visit Provider Internal Medicine
DX: E11.69 Type 2 diabetes mellitus with other specified complication (principal); F32.0 Major depressive disorder, single episode, mild; I10 Essential (primary) hypertension; G47.00 Insomnia, unspecified; E78.5 Hyperlipidemia, unspecified; F41.1 Generalized anxiety disorder

== ENCOUNTER → 2024-06-20 11:19 | Outpatient (BNVA) | payer OTHER, SELFPAY | PROVIDERS: PCP Internal Medicine; Visit Provider Internal Medicine ==

== ENCOUNTER 2024-06-24 13:50 | Outpatient (AMB) | payer OTHER, SELFPAY ==
--- NOTE | 2024-06-24 14:13 | A.OFFVIS_ITS ---
Vital Signs 06/24/24 14:14 Height 5 ft 9 in Weight 220 lb 7.396 oz BMI 32.6 BP 102/68 Blood Pressure Location Lt brachial Position Sitting Pulse 69 Pulse Source Pulse Oximeter Pulse Oximetry (%) 97 Oxygen Delivery Method Room Air Intake Visit Reasons: srini/copd Intake Note: pt is here for follow up and states he is tired, and he lost his cpap., he also states he does have some coughing, wheezing and short of breath. Edger Automatic Required: No Allergies lisinopril Allergy (Severe, Verified 06/24/24 16:06) anaphylaxis gabapentin Adverse Reaction (Intermediate, Verified 06/24/24 16:06) leg edema Medication List - Last Reconciled 06/24/24 by Mychal Long MD amlodipine 10 mg PO DAILY aripiprazole (Abilify) 20 mg PO BEDTIME 90 days atorvastatin 20 mg PO DAILY blood pressure test kit-large (Advocate Blood Pressure Monitor kit) As directed blood sugar diagnostic (DIY Genius Ultra Test strips) Use 1 test strip daily blood-glucose meter (SonarMeduch Ultra2 Meter) test once per day buspirone 15 mg PO TID cane As directed cetirizine (All Day Allergy (cetirizine)) 10 mg PO DAILY PRN 90 days cholecalciferol (vitamin D3) 25 mcg PO DAILY 90 days clonazepam 1 mg PO BEDTIME PRN cyclobenzaprine 10 mg PO TID PRN 30 days escitalopram oxalate (Lexapro) 20 mg PO DAILY 90 days flash glucose scanning reader (CG ScholarStyle Yuki 2 [place]) As directed flash glucose sensor (FreeStyle Yuki 2 Sensor kit) As directed Knee brace As directed lancets (SonarMeduch UltraSoft Lancets) Use 1 lancet once a day metformin ER 500 mg PO BID 90 days methylcellulose (laxative) (Citrucel) 500 mg PO TID omeprazole 20 mg PO QAM prazosin 5 mg PO BEDTIME risperidone 2 mg PO BEDTIME semaglutide (Ozempic) 2 mg (0.75 mL) subcut QWEEK 4 weeks Shower Chair As directed trazodone 50 - 100 mg PO DAILY PRN Ventolin HFA 90 mcg/actuation (albuterol sulfate) 2 puffs inhalation Q6H PRN 30 days NS Do you need a note to return to daycare/school/sports/work: No HPI HPI srini/copd: Details: THIS 53 YEARS OLD GENTLEMAN WITH MODERATE OBESITY AND DIAGNOSIS OF OBSTRUCTIVE SLEEP APNEA, COMES FOR FOLLOW-UP AFTER MORE THAN A YEAR. TODAY HE IS COMPLAINING THAT HE LOST HIS CPAP MACHINE WHEN HE MOVED FROM HIS PREVIOUS APARTMENT TO THE CURRENT 1 ABOUT 2 MONTHS AGO. SO HE HAS NOT BEEN. USING THE CPAP HE WAKES UP FREQUENTLY DURING THE NIGHT. HOWEVER HE DENIES DAYTIME SLEEPINESS. WE HAVE DOWNLOADED HIS COMPLIANCE RECORD FOR THE WHOLE PAST 1 YEAR. AND IT SHOWS THAT HE HAS NEVER BEEN THAT COMPLIANT EVEN WHEN HE DID HAVE THE CPAP MACHINE WITH HIM. THIS GENTLEMAN DOES HAVE SIGNIFICANT PSCHIATRIC PROBLEM , HE IS ON ANTIPSYCHOTIC MEDS. HE HAS HAD OSTEOCHONDROMA EXCISE FROM HIS RIGHT FEMUR AND CONTINUES TO HAVE LOT OF PAIN. SO HE IS ON DISABILITY, CURRENTLY LIVES WITH HIS NEPHEW. I SEE THAT HE HAS BEEN STARTED ON SEMAGLUTIDE INJECTIONS FOR WEIGHT REDUCTION. BUT HAS NOT LOST ANY SIGNIFICANT WEIGHT YET. HE ALSO HAS HISTORY OF BRONCHIAL ASTHMA/COPD AND USES ALBUTEROL P.R.N. [facility] Medical History JEANNETTE (acute kidney injury) Right leg DVT Allergic rhinitis Screen for colon cancer Nocturnal hypoxemia SRINI (obstructive sleep apnea) Obesity (BMI 35.0-39.9 without comorbidity) Elevated TSH Family history of throat cancer Chronic sore throat Daytime somnolence Shortness of breath Mild recurrent major depression Polyarthralgia Insomnia Dyslipidemia Mild asthma Essential hypertension Depression with anxiety Diabetes mellitus Surgical History History of esophagogastroduodenoscopy (EGD) Hx of colonoscopy Osteochondroma of femur Donor, kidney History of circumcision Family History Father Liver problem Mother Diabetes Hypertension Stroke Brother Throat cancer Family/Other Mental health disorder Social History Household Members: Friend(s) Housing: Apartment Alcohol intake: former Patient Tobacco Use Status: Former Tobacco user Tobacco use type: Cigarette e-Cigarette/Vaping Use: Never Used Second Hand Smoke Exposure: No service: No Current occupational status: disabled Current occupation: left hand Cognitive needs: Yes (cane ) Hearing needs: No Vision needs: No Review of Systems Const All systems reviewed & are unremarkable except as noted in HPI and below Eyes Reports no additional complaints ENT Reports nasal congestion (MILD INTERMITTENT) Card Denies irregular heart rhythm and Denies leg edema Resp Denies cough and Reports wheezing (Occasional mild wheezing) GI Denies no additional complaints Reports no additional complaints Musc Reports back pain and Reports other (s/p fracture right femur, has increased pain in the right mid thigh and kn ) Skin/Breast Reports system reviewed and no additional complaints, except as documented Neuro Reports no additional complaints Psych Reports anxiety and Reports depression Endo Reports other (Type 2 diabetes) Arjun/Lymph Reports no additional complaints Aller/Immun Reports wheezing (Occasional mild wheezing) Physical Exam Vital Signs: Last Vital Signs Pulse 69 06/24/24 14:14 BP 102/68 06/24/24 14:14 Pulse Ox 97 06/24/24 14:14 Oxygen Delivery Method Room Air 06/24/24 14:14 BMI result Body Mass Index 32.6 Const Other: Grossly overweight General: comfortable, no acute distress, alert and awake Orientation/consciousness: patient oriented x3 HEENT Head: Yes normal to inspection General nose exam: No nasal polyps present and No nasal discharge present Face and sinus: Yes sinuses nontender Mouth: oropharynx abnormals (Narrow and crowded oropharynx, Mallampati class 4) Throat: Yes posterior oropharynx normal Eyes General: appearance normal, both eyes and all related structures Neck Neck: Yes normal visual inspection, Yes no lymphadenopathy, Yes trachea midline, Yes no JVD and Yes other (Neck size 17 in) Thyroid: Thyroid normal Chest Chest palpation & inspection: normal inspection of the chest, normal palpation of entire chest wall and no tenderness Resp Other: Percussion note is resonant, breath sounds equal on both sides and clear. No wheezes rhonchi or crepitations are heard. Cardio Palpation: normal PMI Rate: regular rate Rhythm: regular rhythm Heart sounds: no gallops and no murmurs GI Palpation (GI): Soft to palpation, nontender, No hepatosplenomegaly present and no masses Auscultation: normal bowel sounds Back/Spine/Pelvis Thoracic/Lumbar Spine: thoracic and lumbar spine normal to inspection, thoraco- lumbar ROM limited and thoraco-lumbar spasm Skin General skin exam: no rashes or lesions noted Neuro General: patient oriented x3 and no focal motor deficits Cranial nerves: Yes CN's II-XII intact bilaterally Extrem General: Yes normal to inspection, Yes no clubbing, cyanosis or edema, Yes no calf tenderness and Yes other (Painful right thigh and knee area) Psych Appearance: grossly normal and well kempt Speech and movement: Normal speech and movement present Results Reviewed Results Reviewed: HIS COMPLIANCE REPORT FOR THE FULL 1 YEAR, FROM JANUARY 2023 TO JANUARY 2024 SHOWS THAT HE USED ONLY FOR 26 NIGHTS OUT OF THE WHOLE YEAR. IN WHEN HE USED IT WAS ONLY FOR 2 HOURS 34 MINUTES. SO FOR PRACTICAL PURPOSES HE WAS TOTALLY NON COMPLIANT, EVEN BEFORE HE LOST HIS CPAP MACHINE HE CLAIMS. Assessment & Plan Assessment & Plan (1) Obesity (BMI 35.0-39.9 without comorbidity): Comment: He is moderately obese, trying to lose weight but it is difficult for him. He cannot do any exercise due to pain in the right thigh. Is on multiple medications, cannot follow the diet strictly. Code(s): E66.9 - Obesity, unspecified Category: Medical Plan: ENCOURAGED TO CUT DOWN THE USE OF CARBOHYDRATES AND TRY TO LOSE WEIGHT BUT FROM PRACTICAL POINT OF VIEW IT IS NOT EXPECTED THAT HE UNDERSTANDS ABOUT DIET. AND SO NOW IS NOT MUCH POTENTIAL FOR HIM TO LOSE WEIGHT. (2) SRINI (obstructive sleep apnea): Comment: Patient does have severe degree of obstructive sleep apnea with total sleep time AHI 44. And is supposed to be using CPAP . Every night . Pressure setting of 11 cm. HE HAS BEEN VERY NONCOMPLIANT TO THE USE OF CPAP. NOW CLAIMS THAT HE HAS LOST HIS MACHINE. I EXPLAINED TO HIM THAT HE IS NOT ELIGIBLE TO GET A NEW CPAP DEVICE. HE SAY IS THAT HE IS GOING TO GO BACK TO HIS PREVIOUS APARTMENT AND TRY TO FIND HIS CPAP DEVICE. Code(s): G47.33 - Obstructive sleep apnea (adult) (pediatric) Category: Medical Plan: I TOLD HIM THAT IF HE CAN FIND THE OLD CPAP DEVICE HE SHOULD BRING IT HERE AND WE WILL CHECK IT OUT TO MAKE SURE IT IS FUNCTIONING OKAY. (3) Asthma with COPD: Comment: History of asthma/COPD. Currently doing well with p.r.n. use of albuterol HFA( VENTOLIN ) 2 puffs Q 4-6 hours p.r.n. which he uses once or twice a day. Code(s): J44.9 - Chronic obstructive pulmonary disease, unspecified Category: Medical Plan: ADVISED TO CONTINUE USING ALBUTEROL HFA 2 PUFFS Q 6 HOURS P.R.N., NO MORE THAN TWICE A DAY. Coding Level of Care Code Est Pt Level 3 (41925) Diagnoses Obesity (BMI 35.0-39.9 without comorbidity) E66.9 SRINI (obstructive sleep apnea) G47.33 Asthma with COPD J44.9
[2024-06-24 14:14] VITALS: BP 102/68; PULSE 69; O2SAT 97; BMI 32.6
== END 2024-06-24 14:42 | disposition home or self-care (01) ==
PROVIDERS: PCP Internal Medicine; Visit Provider Internal Medicine
DX: E66.9 Obesity, unspecified (principal); G47.33 Obstructive sleep apnea (adult) (pediatric); J44.9 Chronic obstructive pulmonary disease, unspecified
CPT/HCPCS: 99213

== ENCOUNTER → 2024-06-24 13:50 | Outpatient (BNVA) | payer OTHER, SELFPAY | PROVIDERS: PCP Internal Medicine; Visit Provider Internal Medicine | DX: J44.9 Chronic obstructive pulmonary disease, unspecified (principal); G47.33 Obstructive sleep apnea (adult) (pediatric); E66.9 Obesity, unspecified; Z68.32 Body mass index [BMI] 32.0-32.9, adult | CPT/HCPCS: 99212 ==

== ENCOUNTER 2024-07-24 10:16 | Outpatient (AMB) | payer OTHER, SELFPAY ==
--- NOTE | 2024-07-24 10:59 | MHC.PC.OV ---
Vital Signs 07/24/24 11:01 Height 5 ft 9 in Weight 212 lb 2 oz BMI 31.3 BP 112/60 Blood Pressure Location Lt brachial Position Sitting Pulse 92 Pulse Source Pulse Oximeter Temp 99.5 F Temp Source Temporal Artery Scan Pulse Oximetry (%) 97 Oxygen Delivery Method Room Air Intake Visit Reasons: Diarrhea and sinus Intake Note: Patient is here to follow up on Diarrhea, body aches, fever, coughing, chills, stomach upset, congestion, running nose. No home covid test. Track Inspector Required: No Chop Saw Operator: Not Required per policy Accompanied by: Self / Same As Patient Allergies lisinopril Allergy (Severe, Verified 07/24/24 11:14) anaphylaxis gabapentin Adverse Reaction (Intermediate, Verified 07/24/24 11:14) leg edema Medication List - Last Reconciled 07/24/24 by Jose Oliva MD amlodipine 10 mg PO DAILY aripiprazole (Abilify) 20 mg PO BEDTIME 90 days atorvastatin 20 mg PO DAILY blood pressure test kit-large (Advocate Blood Pressure Monitor kit) As directed blood sugar diagnostic (Professionali.ruuch Ultra Test strips) Use 1 test strip daily blood-glucose meter (Professionali.ruuch Ultra2 Meter) test once per day buspirone 15 mg PO TID cane As directed cetirizine (All Day Allergy (cetirizine)) 10 mg PO DAILY PRN 90 days cholecalciferol (vitamin D3) 25 mcg PO DAILY 90 days clonazepam 1 mg PO BEDTIME PRN cyclobenzaprine 10 mg PO TID PRN 30 days escitalopram oxalate (Lexapro) 20 mg PO DAILY 90 days flash glucose scanning reader (FreeStyle Yuki 2 [place]) As directed flash glucose sensor (FreeStyle Yuki 2 Sensor kit) As directed Knee brace As directed lancets ([employer] AmericaTouch UltraSoft Lancets) Use 1 lancet once a day metformin ER 500 mg PO BID 90 days methylcellulose (laxative) (Citrucel) 500 mg PO TID omeprazole 20 mg PO QAM prazosin 5 mg PO BEDTIME risperidone 2 mg PO BEDTIME semaglutide (Ozempic) 1 mg (0.75 mL) subcut QWEEK 4 weeks Shower Chair As directed trazodone 50 - 100 mg PO DAILY PRN Ventolin HFA 90 mcg/actuation (albuterol sulfate) 2 puffs inhalation Q6H PRN 30 days NS Tobacco use date assessed: 07/24/24 Dental Screening Dental Screen Date: 07/24/24 Did you have a dental visit in the last 12 months?: Yes Did you have a dental problem in the last 6 months where you did not have access to dental care?: No Was dental information given to patient?: Patient has dentist HPI Diarrhea and sinus HPI Details Patient presents for a sick visit. Reporting symptoms of sinus congestion, sore throat and difficulty swallowing. Low-grade fever. No family member is sick. No recent travel. Patient reports symptoms of malaise and fatigue. [facility] Medical History JEANNETTE (acute kidney injury) Right leg DVT Allergic rhinitis Screen for colon cancer Nocturnal hypoxemia SRINI (obstructive sleep apnea) Obesity (BMI 35.0-39.9 without comorbidity) Elevated TSH Family history of throat cancer Chronic sore throat Daytime somnolence Shortness of breath Mild recurrent major depression Polyarthralgia Insomnia Dyslipidemia Mild asthma Essential hypertension Depression with anxiety Diabetes mellitus Surgical History History of esophagogastroduodenoscopy (EGD) Hx of colonoscopy Osteochondroma of femur Donor, kidney History of circumcision Family History Father Liver problem Mother Diabetes Hypertension Stroke Brother Throat cancer Family/Other Mental health disorder Social History Household Members: Friend(s) Housing: Apartment Alcohol intake: former Patient Tobacco Use Status: Former Tobacco user Tobacco use type: Cigarette e-Cigarette/Vaping Use: Never Used Second Hand Smoke Exposure: No service: No Current occupational status: disabled Current occupation: left hand Cognitive needs: Yes (cane ) Hearing needs: No Vision needs: No Questionnaire PHQ-9 Over the last 2 weeks, how often have you been bothered by any of the following problems? 1. Little interest or pleasure in doing things: nearly every day 2. Feeling down, depressed, or hopeless: nearly every day 3. Trouble falling or staying asleep, or sleeping too much: nearly every day 4. Feeling tired or having little energy: nearly every day 5. Poor appetite or overeating: nearly every day 6. Feeling bad about yourself - or that you are a failure or have let yourself or your family down: nearly every day 7. Trouble concentrating on things, such as reading the newspaper or watching television: nearly every day 8. Moving or speaking so slowly that other people could have noticed. Or the opposite - being so fidgety or restless that you have been moving around a lot more than usual: nearly every day 9. Thoughts that you would be better off or of hurting yourself in some way: not at all Total score: 24 Depression Screening Interpretation: Positive Depression Screening Done: Yes Source: Developed by Drs. Percy Licea, Renetta Kline, Graham Pacheco and colleagues, with an educational levy from [employer] Thrive Questionnaire Date Thrive assessed: 07/24/24 I am a: Patient What is your living situation today?: I have a steady place to live Within the past 12 months, did the food you bought not last and you didn't have the money to get more?: Never true Within the past 12 months, did you worry whether your food would run out before you got money to buy more?: Never true Do you have trouble paying for medicines?: No Do you have trouble getting transportation to medical appointments?: No Do you have trouble paying your heating and electricity bill?: No Do you have trouble taking care of your child, family member or friend?: No Do you have trouble with day-to-day activities such as bathing, preparing meals, shopping, managing finances, etc.?: No Are you currently unemployed and looking for a job?: No Are you interested in more education?: No Please select the resources that you would like help with: None Currently or been in a relationship where the following occur: No concerns reported THRIVE Score: 0 AUDIT C Alcohol Use Questionnaire (AUDIT-C) 1. How often do you have a drink containing alcohol?: Never Total Score: 0 JYOTHI-7 AMB Questionnaire JYOTHI-7 Date JYOTHI - 7 assessed: 07/24/24 Feeling nervous, anxious, or on edge: 3 = Nearly every day Not being able to stop or control worryin = Nearly every day Worrying too much about different things: 3 = Nearly every day Trouble relaxin = Nearly every day Being so restless that it is hard to sit still: 3 = Nearly every day Becoming easily annoyed or irritable: 3 = Nearly every day Feeling afraid as if something awful might happen: 3 = Nearly every day Total JYOTHI-7 score (0-4 normal; 5-9 mild; 10-14 moderate; 15-21 severe): 21 Source: Developed by Drs. Percy Licea, Renetta Kline, Graham Pacheco and colleagues, with an educational levy from [employer] Physical exam (Primary Care) Vital Signs: Last Vital Signs Temp 99.5 F 07/24/24 11:01 Pulse 92 07/24/24 11:01 BP 112/60 07/24/24 11:01 Pulse Ox 97 07/24/24 11:01 Oxygen Delivery Method Room Air 07/24/24 11:01 BMI result Body Mass Index 31.3 Tobacco/Smoking Status: Tobacco use Status Tobacco use date assessed 07/24/24 07/24/24 11:04 Patient Tobacco Use Status Former Tobacco user 07/24/24 11:04 Tobacco use type Cigarette 07/24/24 11:04 e-Cigarette/Vaping Use Never Used 07/24/24 11:04 PHQ-9: PHQ-9 Score PHQ-9: Total score 24 07/24/24 11:11 Depression Screening Interpretation: Positive Thrive Assessment: Date of Thrive Assessment Date Thrive assessed 07/24/24 07/24/24 11:04 Currently or been in a relationship where the following occur: No concerns reported Const General: cooperative and healthy appearing Nutritional Appearance: well nourished Orientation/consciousness: patient oriented x3 Limitations: no limitations HENMT Head: Yes normal to inspection Eyes General: appearance normal, both eyes and all related structures Neck Neck: Yes normal visual inspection Chest Chest palpation & inspection: normal palpation of entire chest wall Resp Effort & Inspection: normal respiratory effort Neuro General: patient oriented x3 Coding Level of Care Code Est Pt Level 3 (64713) Complex EM visit Add On G2211 Diagnoses Upper respiratory tract infection J06.9 Assessment & Plan Assessment & Plan (1) Upper respiratory tract infection: Code(s): J06.9 - Acute upper respiratory infection, unspecified Plan: Antibiotics ordered. Increase fluid intake. Tylenol for aches and pains. If symptoms worsen, follow-up here for a recheck.
[2024-07-24 11:01] VITALS: BP 112/60; PULSE 92; TEMP 37.5; O2SAT 97; BMI 31.3
== END 2024-07-24 11:59 | disposition home or self-care (01) ==
PROVIDERS: PCP Internal Medicine; Visit Provider Internal Medicine
DX: J06.9 Acute upper respiratory infection, unspecified (principal)

== ENCOUNTER 2024-07-24 10:16 | Outpatient (REF) | payer OTHER, SELFPAY ==
[2024-07-24 12:19] LABS: Influenza A PCR NEGATIVE (Negative); Influenza B PCR NEGATIVE (Negative); Resp Syncy Virus RNA Qual PCR NEGATIVE (Negative); SARS COV2 PCR INHOUSE NEGATIVE (Negative)
== END 2024-07-24 10:17 | disposition home or self-care (01) ==
LOC: HO.LAB 10:16
PROVIDERS: PCP Internal Medicine; Visit Provider Internal Medicine
DX: J06.9 Acute upper respiratory infection, unspecified (principal); R43.9 Unspecified disturbances of smell and taste
CPT/HCPCS: 0241U; 96127; 99212

== ENCOUNTER 2025-01-14 12:57 | Outpatient (AMB) | payer OTHER, SELFPAY ==
--- NOTE | 2025-01-14 13:09 | A.OFFPC_ITS ---
Vital Signs 01/14/25 13:12 Height 5 ft 9 in Weight 211 lb BMI 31.2 BP 112/84 Blood Pressure Location Lt brachial Position Sitting Intake Visit Reasons: annual exam/f/u hip / HTN- A1C needed Intake Note: Patient here for a physical exam, c/o hemorrhoid User Interface Developer Required: No Accompanied by: Self / Same As Patient Allergies lisinopril Allergy (Severe, Verified 01/14/25 13:36) anaphylaxis gabapentin Adverse Reaction (Intermediate, Verified 01/14/25 13:36) leg edema Medication List - Last Reconciled 01/14/25 by Asuncion Muhammad MD amlodipine 10 mg PO DAILY aripiprazole (Abilify) 20 mg PO BEDTIME 90 days atorvastatin 20 mg PO DAILY blood pressure test kit-large (Advocate Blood Pressure Monitor kit) As directed blood sugar diagnostic (Direct Flow Medical Ultra Test strips) Use 1 test strip daily blood-glucose meter (Direct Flow Medical Ultra2 Meter) test once per day buspirone 15 mg PO TID cane As directed cetirizine (All Day Allergy (cetirizine)) 10 mg PO DAILY PRN 90 days cholecalciferol (vitamin D3) 25 mcg PO DAILY 90 days clonazepam 1 mg PO BEDTIME PRN cyclobenzaprine 10 mg PO TID PRN 30 days diphenhydramine HCl (Banophen) 25 mg PO BEDTIME PRN 7 days escitalopram oxalate (Lexapro) 20 mg PO DAILY 90 days flash glucose scanning reader (TalentBinStyle Yuki 2 [place]) As directed flash glucose sensor (FreeStyle Yuki 2 Sensor kit) As directed Knee brace As directed lancets (SureVisituch UltraSoft Lancets) Use 1 lancet once a day lidocaine 5% 1 patch topical DAILY PRN 30 days metformin ER 500 mg PO BID 90 days methylcellulose (laxative) (Citrucel) 500 mg PO TID omeprazole 20 mg PO QAM prazosin 5 mg PO BEDTIME risperidone 2 mg PO BEDTIME semaglutide (Ozempic) 2 mg (0.75 mL) subcut QWEEK 4 weeks Shower Chair As directed trazodone 50 - 100 mg PO DAILY PRN Ventolin HFA 90 mcg/actuation (albuterol sulfate) 2 puffs inhalation Q6H PRN 30 days NS Tobacco use date assessed: 07/24/24 Dental Screening Dental Screen Date: 07/24/24 HPI HPI Comments History of Present Illness Details The patient is a 54-year-old male presenting for a physical examination and management of chronic conditions. Asthma with COPD stable with inhalers. The patient has a history of depression with anxiety, for which he is currently taking Abilify, escitalopram, and clonazepam. He reports a PHQ-9 score of 21, indicating severe depression, but denies any suicidal ideation. He follows with psychiatry. The patient has a history of osteochondroma of the femur, which was complicated by a femur fracture in 2021. He did not require surgical intervention with screws for this condition. The patient reports chronic right hip pain, which is a persistent issue. The patient also reports having hemorrhoids, which were confirmed during the physical examination. [facility] Medical History (Updated 01/15/25 @ 08:48 by Asuncion Muhammad MD) Mild major depression JEANNETTE (acute kidney injury) Right leg DVT Allergic rhinitis Screen for colon cancer Nocturnal hypoxemia SRINI (obstructive sleep apnea) Obesity (BMI 35.0-39.9 without comorbidity) Elevated TSH Family history of throat cancer Chronic sore throat Daytime somnolence Shortness of breath Mild recurrent major depression Polyarthralgia Insomnia Dyslipidemia Mild asthma Essential hypertension Depression with anxiety Diabetes mellitus Surgical History History of esophagogastroduodenoscopy (EGD) Hx of colonoscopy (~12/27/22) Osteochondroma of femur Donor, kidney History of circumcision Family History Father Liver problem Mother Diabetes Hypertension Stroke Brother Throat cancer Family/Other Mental health disorder Social History Household Members: Friend(s) Housing: Apartment Alcohol intake: former Patient Tobacco Use Status: Former Tobacco user Tobacco use type: Cigarette e-Cigarette/Vaping Use: Never Used Second Hand Smoke Exposure: No service: No Current occupational status: disabled Current occupation: left hand Cognitive needs: Yes (cane ) Hearing needs: No Vision needs: No Questionnaire PHQ-9 Over the last 2 weeks, how often have you been bothered by any of the following problems? 1. Little interest or pleasure in doing things: not at all 2. Feeling down, depressed, or hopeless: nearly every day 3. Trouble falling or staying asleep, or sleeping too much: nearly every day 4. Feeling tired or having little energy: nearly every day 5. Poor appetite or overeating: nearly every day 6. Feeling bad about yourself - or that you are a failure or have let yourself or your family down: nearly every day 7. Trouble concentrating on things, such as reading the newspaper or watching television: nearly every day 8. Moving or speaking so slowly that other people could have noticed. Or the opposite - being so fidgety or restless that you have been moving around a lot more than usual: nearly every day 9. Thoughts that you would be better off or of hurting yourself in some wa y: not at all Total score: 21 Depression Screening Interpretation: Positive Depression Screening Follow-up: Existing condition, In treatment, Community Mental Health Worker F/U and Follow- up Visit Requested Depression Screening Done: Yes 64350 - PHQ-9 Billing: Yes Source: Developed by Drs. Percy Licea, Renetta Kline, Graham Pacheco and colleagues, with an educational levy from [employer]. Thrive Questionnaire Date Thrive assessed: 07/24/24 I am a: Patient What is your living situation today?: I choose not to answer this question Within the past 12 months, did the food you bought not last and you didn't have the money to get more?: I choose not to answer this question Within the past 12 months, did you worry whether your food would run out before you got money to buy more?: I choose not to answer this question Do you have trouble paying for medicines?: I choose not to answer this question Do you have trouble getting transportation to medical appointments?: I choose not to answer this question Do you have trouble paying your heating and electricity bill?: I choose not to answer this question Do you have trouble taking care of your child, family member or friend?: I choose not to answer this question Do you have trouble with day-to-day activities such as bathing, preparing meals, shopping, managing finances, etc.?: I choose not to answer this question Are you currently unemployed and looking for a job?: I choose not to answer this question Are you interested in more education?: I choose not to answer this question Please select the resources that you would like help with: None Currently or been in a relationship where the following occur: I choose not to answer THRIVE Score: 0 AUDIT C Alcohol Use Questionnaire (AUDIT-C) 1. How often do you have a drink containing alcohol?: Never Total Score: 0 Score Reviewed/Action Taken: No JYOTHI-7 AMB Questionnaire JYOTHI-7 Date JYOTHI - 7 assessed: 07/24/24 Feeling nervous, anxious, or on edge: 3 = Nearly every day Not being able to stop or control worryin = Nearly every day Worrying too much about different things: 3 = Nearly every day Trouble relaxin = Nearly every day Being so restless that it is hard to sit still: 3 = Nearly every day Becoming easily annoyed or irritable: 3 = Nearly every day Feeling afraid as if something awful might happen: 3 = Nearly every day Total JYOTHI-7 score (0-4 normal; 5-9 mild; 10-14 moderate; 15-21 severe): 21 Source: Developed by Drs. Percy Licea, Renetta Kline, Graham Pacheco and colleagues, with an educational levy from [employer]. JYOTHI-7 Assessment Billing JYOTHI-7 Assessment Tool: JYOTHI-7 Assessment 03019 Review of Systems Const All systems reviewed & are unremarkable except as noted in HPI and below Card Denies chest pain at rest, Denies chest pain with activity, Denies edema, Denies irregular heart rhythm, Denies claudication, Denies dyspnea, Denies dyspnea on exertion, Denies orthopnea, Denies paroxysmal nocturnal dyspnea and Denies slow heart rate Resp Denies cough, Denies dyspnea and Denies dyspnea on exertion GI Denies abdominal pain, Denies change in bowel habits, Denies excessive flatus, Denies nausea and Denies vomiting Denies urinary hesitancy, Denies urinary incontinence and Denies urinary urgency Physical exam (Primary Care) Vital Signs: Last Vital Signs BP 112/84 01/14/25 13:12 BMI result Body Mass Index 31.2 BMI Assessment/Plan discussion: High BMI High, discussed plan: lifestyle, weight reduction, dietary and physical activity Tobacco/Smoking Status: Tobacco use Status Tobacco use date assessed 07/24/24 01/14/25 13:10 Patient Tobacco Use Status Former Tobacco user 01/14/25 13:10 Tobacco use type Cigarette 01/14/25 13:10 e-Cigarette/Vaping Use Never Used 01/14/25 13:10 PHQ-9: PHQ-9 Score PHQ-9: Total score 21 01/14/25 13:47 Depression Screening Interpretation: Positive Depression Screening Follow-up: Existing condition, In treatment, Community Mental Health Worker F/U and Follow- up Visit Requested Thrive Assessment: Date of Thrive Assessment Date Thrive assessed 07/24/24 01/14/25 13:10 Currently or been in a relationship where the following occur: I choose not to answer HENMT Head: Yes normal to inspection, Yes normocephalic and Yes atraumatic Ears: external ears normal Eyes General: appearance normal, both eyes and all related structures Eyelids: Yes eyelids normal Conjunctivae: conjunctivae normal Neck Neck: Yes normal visual inspection and Yes supple Resp Effort & Inspection: normal respiratory effort Auscultation: clear to auscultation bilaterally Cardio Jugular venous distension: no JVD Rate: regular rate Rhythm: regular rhythm Heart sounds: S1 normal heart sound present and S2 normal heart sound present GI Inspection: Yes normal to inspection Palpation (GI): Soft to palpation and nontender Auscultation: normal bowel sounds Skin General skin exam: no rashes or lesions noted Neuro General: no focal motor deficits Extrem General: Yes full ROM Psych Appearance: grossly normal Results AMB Hemoglobin A1c AMB Hemoglobin A1c 6.2 % Last Edit by CHRIS Weathers on 01/14/25 13:2 2 Results Reviewed Results Reviewed: Laboratory Last Values Hgb A1c (Clinic) 6.2 % (4.0-6.0) H 01/14/25 13:08 Coding Level of Care Code Est Pt Level 4 (62052) Est Pt Prev Care 40-64y(53976) Diagnoses Physical exam Z00.00 Asthma with COPD J44.9 Type 2 diabetes mellitus without complication, without long-term current use of insulin E11.9 Diabetes mellitus type: type 2 Diabetes mellitus terminal operations supervisor insulin use: without mcfp use Diabetes mellitus complication status: without complication Severe recurrent major depression without psychotic features F33.2 Right hip pain M25.551 Additional Codes JYOTHI-7 Assessment Billing - JYOTHI-7 Assessment Tool: JYOTHI-7 Assessment 13676 ([id number]) PHQ-9 - 66533 - PHQ-9 Billing: Yes ([id number]) Time Spent (min) 38 Assessment & Plan Assessment & Plan (1) Physical exam: Code(s): Z00.00 - Encounter for general adult medical examination without abnormal findings Category: Medical (2) Asthma with COPD: Comment: History of asthma/COPD. Currently doing well with p.r.n. use of albuterol HFA( VENTOLIN ) 2 puffs Q 4-6 hours p.r.n. which he uses once or twice a day. Code(s): J44.9 - Chronic obstructive pulmonary disease, unspecified Category: Medical (3) Diabetes mellitus: Code(s): E11.9 - Type 2 diabetes mellitus without complications Category: Medical Qualifiers: Diabetes mellitus type: type 2 Diabetes mellitus terminal operations supervisor insulin use: without terminal operations supervisor use Diabetes mellitus complication status: without complication Qualified Code(s): E11.9 - Type 2 diabetes mellitus without complications (4) Severe recurrent major depression without psychotic features: Code(s): F33.2 - Major depressive disorder, recurrent severe without psychotic features Category: Medical (5) Right hip pain: Code(s): M25.551 - Pain in right hip Category: Medical Plan The patient will continue current medications for depression and anxiety, including Abilify, escitalopram, and clonazepam. A follow-up appointment is recommended to reassess the PHQ-9 score and evaluate the effectiveness of the current treatment regimen. For the osteochondroma of the femur, no surgical intervention is currently required, but monitoring for any changes or complications is advised. The patient is advised to manage right hip pain with appropriate pain relief measures and to monitor for any worsening of symptoms. For hemorrhoids, symptomatic treatment is recommended, and the patient should follow up if symptoms persist or worsen. Patient was informed and verbally consented to the use of an ambient scribe for clinic note documentation during this visit. Orders: Orders XR hip RT min 2V 01/14/25 M25.551 - Pain in right hip Thyroid Stimulating Hormone 01/14/25 E06.3 - Autoimmune thyroiditis AMB Hemoglobin A1c 01/14/25 E11.9 - Type 2 diabetes mellitus without complications Lipid Panel 01/14/25 E78.5 - Hyperlipidemia, unspecified Microalbumin, Random (w Creat) 07/01/25 R80.9 - Proteinuria, unspecified Vitamin D 25-OH Total 01/14/25 E55.9 - Vitamin D deficiency, unspecified Comprehensive [place]. Panel Fast 01/14/25 J30.9 - Allergic rhinitis, unspecified
[2025-01-14 13:12] VITALS: BP 112/84; BMI 31.2
== END 2025-01-14 14:02 | disposition home or self-care (01) ==
LOC: HO.HMCH 12:58
PROVIDERS: PCP Internal Medicine; Visit Provider Internal Medicine
DX: E11.9 Type 2 diabetes mellitus without complications (principal)

== ENCOUNTER → 2025-01-14 12:57 | Outpatient (BNVA) | payer OTHER, SELFPAY | PROVIDERS: PCP Internal Medicine; Visit Provider Internal Medicine | DX: Z00.00 Encounter for general adult medical examination without abnormal findings (principal); F41.9 Anxiety disorder, unspecified; J44.9 Chronic obstructive pulmonary disease, unspecified; E11.9 Type 2 diabetes mellitus without complications; F33.2 Major depressive disorder, recurrent severe without psychotic features; M25.511 Pain in right shoulder; M25.551 Pain in right hip; E06.3 Autoimmune thyroiditis; E78.5 Hyperlipidemia, unspecified; R80.9 Proteinuria, unspecified; E55.9 Vitamin D deficiency, unspecified; J30.9 Allergic rhinitis, unspecified; Z79.899 Other long term (current) drug therapy | CPT/HCPCS: 83036; 96127; 99212; 99396 ==

== ENCOUNTER 2025-01-20 14:46 | Outpatient (REF) | payer OTHER, SELFPAY ==
[2025-01-20 16:16] LABS: Alanine Aminotransferase 131 U/L (0-40); Albumin Level 4.3 g/dL (3.5-5.0); Alkaline Phosphatase 66 U/L (39-117); Anion Gap 12 (12-20); Aspartate Amino Transferase 64 U/L (5-37); Blood Urea Nitrogen 14 mg/dL (9-16); Calcium 8.9 mg/dL (8.4-10.2); Carbon Dioxide 25 mmol/L (22-29); Chloride 108 mmol/L (96-108); Cholesterol 123 mg/dL (<200); Estimated Glomerular Filt Rate > 60; HDL Cholesterol 39 mg/dL (>40); Potassium 3.8 mmol/L (3.3-5.1); Sodium 141 mmol/L (135-145); Total Protein 7.4 g/dL (6.5-8.0); Triglycerides 116 mg/dL (<150)
[2025-01-20 16:34] LABS: Thyroid Stimulating Hormone 4.04 uIU/mL (0.32-4.0)
[2025-01-20 17:55] LABS: Microalbum/Creatinine Ratio Ur 10.6 ug/mg cr (<30)
== END 2025-01-20 14:47 | disposition home or self-care (01) ==
LOC: HO.LAB 14:46
PROVIDERS: PCP Internal Medicine; Visit Provider Internal Medicine
DX: E11.9 Type 2 diabetes mellitus without complications (principal); E55.9 Vitamin D deficiency, unspecified; E06.3 Autoimmune thyroiditis; E78.5 Hyperlipidemia, unspecified; R80.9 Proteinuria, unspecified
CPT/HCPCS: 36415; 80053; 80061; 82043; 82306; 82570; 84443

== ENCOUNTER 2025-02-10 09:26 | Outpatient (REF) | payer OTHER, SELFPAY ==
--- OUTSIDE RECORDS SUMMARY | 2025-02-10 10:15 | XMS_ITS ---
Author Organization [facility] Address [address] [place] [id number] Phone Care Team Providers Care Electric Lineman Name Role Phone Asuncion Clifton MD Primary Care Provid er Transplant Episode Kidney Donor [facility] ([place], [place]) - [facility] Organ Donated: Left Kidney Recovered on 07/25/1991 Marked as Reporting Follow-up Only on 07/24/[facility] [place] [facility] Provider Phone: N/A Fax: N/A Email: N/A Care Team Name Role Phone Fax Email [facility] [place] Historical Conversion Provider Kidney Coordinator N/A N/A N/A Events Post-Donation Pre-Donation Recovered: 07/25/1991
[2025-02-10 11:06] LABS: Alanine Aminotransferase 116 U/L (0-40); Albumin Level 4.2 g/dL (3.5-5.0); Alkaline Phosphatase 70 U/L (39-117); Anion Gap 10 (12-20); Aspartate Amino Transferase 58 U/L (5-37); Blood Urea Nitrogen 15 mg/dL (9-16); Calcium 8.7 mg/dL (8.4-10.2); Carbon Dioxide 25 mmol/L (22-29); Chloride 109 mmol/L (96-108); Cholesterol 128 mg/dL (<200); Estimated Glomerular Filt Rate > 60; Free T4 (Free Thyroxine) 0.95 ng/dL (0.71-1.85); HDL Cholesterol 37 mg/dL (>40); Potassium 3.9 mmol/L (3.3-5.1); Sodium 140 mmol/L (135-145); Thyroid Stimulating Hormone 3.34 uIU/mL (0.32-4.0); Total Protein 7.1 g/dL (6.5-8.0); Triglycerides 164 mg/dL (<150)
[2025-02-13 21:08] LABS: Testosterone, Free 75.3 pg/mL (35.0-155.0)
== END 2025-02-10 09:27 | disposition home or self-care (01) ==
LOC: HO.LAB 09:26
PROVIDERS: PCP Internal Medicine; Visit Provider Internal Medicine
DX: E11.9 Type 2 diabetes mellitus without complications (principal); E06.3 Autoimmune thyroiditis; J30.9 Allergic rhinitis, unspecified; E78.5 Hyperlipidemia, unspecified; E55.9 Vitamin D deficiency, unspecified; N52.9 Male erectile dysfunction, unspecified; R94.6 Abnormal results of thyroid function studies
CPT/HCPCS: 36415; 80053; 80061; 82306; 84402; 84403; 84439; 84443

== ENCOUNTER 2025-05-19 11:31 | Outpatient (REF) | payer OTHER, SELFPAY ==
[2025-05-19 13:09] LABS: Albumin Level 4.6 g/dL (3.5-5.0); Alkaline Phosphatase 80 U/L (39-117); Anion Gap 11 (12-20); Aspartate Amino Transferase 23 U/L (5-37); Blood Urea Nitrogen 14 mg/dL (9-16); Calcium 9.2 mg/dL (8.4-10.2); Carbon Dioxide 29 mmol/L (22-29); Chloride 105 mmol/L (96-108); Estimated Glomerular Filt Rate > 60; Potassium 4.1 mmol/L (3.3-5.1); Sodium 141 mmol/L (135-145); Total Protein 7.9 g/dL (6.5-8.0)
[2025-05-19 13:28] LABS: Thyroid Stimulating Hormone 3.37 uIU/mL (0.32-4.0)
[2025-05-19 13:31] LABS: Alanine Aminotransferase 35 U/L (0-40)
--- OUTSIDE RECORDS SUMMARY | 2025-05-19 14:40 | XMS_ITS | Clinical Summary ---
Author Organization [facility] Address [address] [place] [phone] Phone Care Team Providers Care Glove Turner And Former Name Role Phone Asuncion Clifton MD Primary Care Provid er Allergies Active Allergy Reactions Criticality Noted Date Comments Gabapentin Swelling 05/09/2022 Lisinopril Cough 05/09/2022 Medications apixaban (ELIQUIS) 5 mg (74 tabs) tablets in DVT/PE starter pack Take by mouth as directed. Take 10mg by mouth twice daily for 7 days followed by 5mg twice daily. 74 tablet 05/10/2022 Active oxyCODONE 5 MG immediate release tablet Take 1 tablet (5 mg total) by mouth every 8 (eight) hours as needed. Partial fill ok 10 tablet 05/10/2022 Active Immunizations Immunization Administration Dates Next Due COVID-19 (Pre-05/08) Moderna Vaccine, mRNA, PF 0 09/10/2020,08/13/2020 Social History Tobacco Use Types Packs/Day Years Used Date Smoking Tobacco: Never Assessed Education Answer Date Recorded Are you interested in more education? Not on faustino e 11/20/2022 Are you concerned about learning? Not on file 11/20/2022 No 11/20/2022 No 11/20/2022 Digital Access Answer Date Recorded No 12/11/2022 No 12/11/2022 No 12/11/2022 Reliable internet access at home? Not on file 12/11/2022 Device with a working camera? Not on file Sex and Gender Information Value Date Recorded Sex Assigned at Male 08/12/2020 10:47 AM EST Legal Sex Male 6:38 PM EST Gender Identity Male 08/12/2020 10:47 AM EST Sexual Orientation Straight 08/12/2020 10 :47 AM EST Last Filed Vital Signs Vital Sign Reading Time Taken Comments Blood Pressure 130/68 05/10/2022 5:04 AM EDT Pulse 82 05/10/2022 5:04 AM EDT Temperature 37 C (98.6 F) 05/10/2022 5:04 AM EDT Respiratory Rate 20 05/10/2022 5:04 AM EDT Oxygen Saturation 97% 05/10/2022 5:04 AM EDT Inhaled Oxygen Concentration - - Weight - - Height - - Body Mass Index - - Plan of Treatment Health Maintenance Due Date Last Done Comments LIPID PANEL 1971 DEPRESSION SCREENING 1983 SMOKING Hx and SMOKELESS TOBACCO SCREENING 1984 HEPATITIS C SCREENING 1989 HIV ONE-TIME SCREENING (18-65 YEARS) 1989 COLOGUARD 2016 COLONOSCOPY 2016 COLORECTAL CANCER SCREENING 2016 FIT TEST 2016 FOBT 2016 SIGMOIDOSCOPY 2016 VIRTUAL COLONOSCOPY 2016 PNEUMOCOCCAL VACCINES (50+ years) (1 of 1 - PCV) 2021 ZOSTER VACCINES (1 of 2) 2021 CREATININE LEVEL 05/09/2023 05/09/2022 INFLUENZA VACCINE (#1) 2025 , 03/27/2019, 03/13/2019, Additional history exists COVID-19 VACCINE (3 - 2024- season) 2025 09/10/2020, 08/13/2020 Adult Td,Tdap Booster 04/28/2026 04/28/2016 RSV VACCINE (1 - 1-dose 75+ series) 2046 HEPATITIS A VACCINES Aged Out No long er eligible based on patient's age to complete this topic HIB VACCINES Aged Out No longer eligi ble based on patient's age to complete this topic MENINGOCOCCAL VACCINES (ACWY) Aged Out No longer eligible based on patient's age to complete this topic MENINGOCOCCAL VACCINES (B) Aged Out N o longer eligible based on patient's age to complete this topic Medical Devices Not on file Procedures Procedure Name Priority Date/Time Associated Diagnosis Comments BASIC METABOLIC PANEL (BMP) STAT 05/09/2022 10:01 PM EDT from Last 3 Months or Most Recently Relevant to Health Maintenance Results * (ABNORMAL) Basic metabolic panel (05/09/2022 10:01 PM EDT) SODIUM 138 133 - 146 mmol/L [facility] CHLORIDE 101 96 - 108 mmol/L [facility] POTASSIUM 3.4 3.3 - 5.1 mmol/L [facility] CO2 26 21 - 35 mmol/L [facility] BUN 16 6 - 19 mg/dL [facility] CREATININE 1.00 0.5 - 1.5 mg/dL [facility] GLUCOSE 152(H) 70 - 99 mg/dL [facility] CALCIUM 9.3 8.4 - 10.3 mg/dL [facility] EGFR 92 >59 mL/min/1.7 3m2 [facility] Comment:Estimated glomerular filtration rate calculated using the CKD-EPI refit equation. ANION GAP 14 10 - 20 mmol/L [facility] Blood 05/09/2022 10:0 1 PM EDT 05/09/2022 10:31 PM EDT us Иван Elaine MD LAB BLOOD BKR ORDERABLES Final Result [facility] [address] [place] [address] from Last 3 Months or Most Recently Relevant to Health Maintenance Insurance [facility] [employer] MEDICARE REPLACEMENT [facility] REPLACEMENT [facility] MED[facility]PLACEMENT [facility] REPLACEMENT [facility] REPLACEMENT [facility] REPLACEMENT [facility] MEDIC[facility] REPLACEMENT [facility] CARE MEDICARE [facility]PLACEMENT [facility] MEDIC[facility] REPLACEMENT Care Teams Glove Turner And Former Relationship Specialty Start Date End Date Asuncion Clifton MD [address] [place] [address] PCP - General Internal Medicine 08/12/20 Additional Source Comments The information contained in this document represents components of the legal health record. It is not the complete legal health record.[facility]
--- OUTSIDE RECORDS SUMMARY | 2025-05-19 14:40 | XMS_ITS ---
Author Organization [facility] Address [address] [place] [phone] Phone Care Team Providers Care Nuclear Reactor Technician Name Role Phone Asuncion Clifton MD Primary Care Provid er Transplant Episode Kidney Donor [facility] ([place], [place]) - [facility] Organ Donated: Left Kidney Recovered on 07/25/1991 Marked as Reporting Follow-up Only on 07/24/[facility] [place] [facility] Provider Phone: N/A Fax: N/A Email: N/A Care Team Name Role Phone Fax Email [facility] Historical Conversion Provider Kidney Coordinator N/A N/A N/A Events Post-Donation Pre-Donation Recovered: 07/25/1991
== END 2025-05-19 11:32 | disposition home or self-care (01) ==
LOC: HO.LAB 11:31
PROVIDERS: PCP Internal Medicine; Visit Provider Internal Medicine
DX: E06.3 Autoimmune thyroiditis (principal); J30.9 Allergic rhinitis, unspecified
CPT/HCPCS: 36415; 80053; 84443

== ENCOUNTER 2025-05-20 12:01 | Outpatient (REF) | payer OTHER, SELFPAY ==
--- NOTE | ~2025-05-20 | XR_ITS ---
EXAMINATION: XR TIBIA AND FIBULA, RIGHT CLINICAL INFORMATION: M79.604 - Pain in right leg COMPARISON: Right knee and right ankle x-rays from the same day TECHNIQUE: AP and lateral views of the right tibia and fibula were obtained. FINDINGS: Bone alignment is normal. No fracture or dislocation. Question old trauma to the medial malleolus better described in same day ankle x-ray report. Joint space is otherwise normal. Soft tissue calcification overlying the patellar tendon. Soft tissues are otherwise unremarkable. XR/XR tibia fibula RT 2V IMPRESSION: Normal right tibia and fibula. Electronically signed by: Mere Mario MD 05/20/2025 01:10 PM [facility]
--- NOTE | ~2025-05-20 | XR_ITS ---
EXAMINATION: XR ANKLE, RIGHT CLINICAL INFORMATION: M25.571 - Pain in right ankle and joints of right foot COMPARISON: Previous x-ray December 2020 TECHNIQUE: AP, lateral, and mortise views of the right ankle. FINDINGS: No acute fracture or dislocation. There may be old trauma to the medial malleolus. There are degenerative changes at the anterior tibiotalar joint with small osteophytes. Small osteophytes seen at the navicular cuneiform joint. Small calcaneal spurs. Soft tissues are unremarkable. 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 Electronically signed by: Mere Mario MD 05/20/2025 01:09 PM [facility]
--- NOTE | ~2025-05-20 | XR_ITS ---
EXAMINATION: XR KNEE, RIGHT CLINICAL INFORMATION: M25.561 - Pain in right knee COMPARISON: Previous x-rays most recent March 2022 TECHNIQUE: 2 views of the right knee. FINDINGS: Intramedullary lela seen in the right distal femur. Visualized surgical hardware appears intact. In comparison to prior March 2022 exam, 2 distal cortical screws have been removed. There is extensive irregular appearing laminated periosteal reaction is seen in the distal femoral shaft. This is significantly increased from March 2022 exam. Differential would include heterotopic ossification and periosteal reaction related to infection or possibly neoplasm. Clinical correlation recommended. As could be further evaluated with bone scan or sectional imaging such as CT or MRI if clinically warranted. No acute fracture or dislocation. Mild degenerative changes at the patellofemoral joint. Moderate-sized joint effusion. Soft tissue calcification in the patellar tendon. XR/XR knee RT 2V IMPRESSION: Intramedullary lela in the right distal femur. 2 distal cortical screws have been removed in the interval from March 2022. Extensive laminated periosteal reaction in the visualized distal cortical shaft of the femur. Question heterotopic ossification versus infection or neoplasm. Clinical correlation recommended. This could be better evaluated with bone scan or cross-sectional imaging of the right femur if clinically warranted. Mild mild degenerative changes at the knee joint and moderate size joint effusion. Electronically signed by: Mere Mario MD 05/20/2025 01:07 PM [facility]
--- OUTSIDE RECORDS SUMMARY | 2025-05-20 14:51 | XMS_ITS | Clinical Summary ---
Author Organization [facility] Address [address] [place] [id number] Phone Care Team Providers Care Shell Trim Tool Setter Name Role Phone Asuncion Clifton MD Primary [...] EDT) SODIUM 138 133 - 146 mmol/L [facility] CHLORIDE 101 96 - 108 mmol/L [facility] POTASSIUM 3.4 3.3 - 5.1 mmol/L [facility] CO2 26 21 - 35 mmol/L [facility] BUN 16 6 - 19 mg/dL [facility] CREATININE 1.00 0.5 - 1.5 mg/dL [facility] GLUCOSE 152(H) 70 - 99 mg/dL [facility] CALCIUM 9.3 8.4 - 10.3 mg/dL [facility] EGFR 92 >59 mL/min/1.7 3m2 [facility] Comment:Estimated glomerular filtration rate calculated using the CKD-EPI refit equation. ANION GAP 14 10 - 20 mmol/L [facility] Blood 05/09/2022 10:0 1 PM EDT 05/09/2022 10:31 PM EDT us Иван Elaine MD LAB BLOOD BKR ORDERABLES Final Result [facility] [address] [place] [address] from Last 3 Months or Most Recently Relevant to Health Maintenance Insurance [facility] [employer] C[employer] MEDICARE REPLACEMENT [facility] MEDICARE [facility]PLACEMENT [facility] MEDICARE REPLACEMENT [facility] MEDICARE [facility]PLACEMENT [facility] MEDICARE REPLACEMENT [facility] MEDICARE REPLACEMENT [facility] MEDICARE REPLACEMENT [facility] CARE MEDICARE REPLACEMENT [facility] MEDICARE REPLACEMENT Care Teams Shell Trim Tool Setter Relationship Specialty Start Date End Date Asuncion Clifton MD [address] [place] [address] PCP - General Internal Medicine 08/12/20 Additional Source Comments The information contained in this document represents components of the legal health record. It is not the complete legal health record.[facility]
--- OUTSIDE RECORDS SUMMARY | 2025-05-20 14:51 | XMS_ITS ---
Author Organization [facility] Address [address] [place] [id number] Phone Care Team Providers Care Technical Marketing Engineer Name Role Phone Asuncion Clifton MD Primary Care Provid er Transplant Episode Kidney Donor [facility] ([place], [place]) - [facility] Organ Donated: Left Kidney Recovered on 07/25/1991 Marked as Reporting Follow-up Only [facility] 07/24/[facility] [place] Provider Phone: N/A Fax: N/A Email: N/A Care Team Name Role Phone Fax Email [facility] [place] Provider Kidney Coordinator N/A N/A N/A Events Post-Donation Pre-Donation Recovered: 07/25/1991
== END 2025-05-20 12:02 | disposition home or self-care (01) ==
LOC: HO.XRAY 12:01
PROVIDERS: PCP Internal Medicine; Visit Provider Internal Medicine
DX: M79.604 Pain in right leg (principal); M25.561 Pain in right knee; M25.571 Pain in right ankle and joints of right foot; E11.9 Type 2 diabetes mellitus without complications; F33.0 Major depressive disorder, recurrent, mild; E78.5 Hyperlipidemia, unspecified; Z87.891 Personal history of nicotine dependence
CPT/HCPCS: 73560; 73590; 73600; 83036; 99212

== ENCOUNTER → 2025-05-20 12:05 | Outpatient (BNV) | payer OTHER, SELFPAY | PROVIDERS: PCP Internal Medicine; Visit Provider Radiology Diagnostic Radiology | DX: M25.561 Pain in right knee (principal); Z96.698 Presence of other orthopedic joint implants; M19.071 Primary osteoarthritis, right ankle and foot; M79.604 Pain in right leg | CPT/HCPCS: 73560; 73590; 73600 ==

== ENCOUNTER 2025-05-20 14:14 | Outpatient (AMB) | payer OTHER, SELFPAY ==
--- NOTE | 2025-05-20 14:34 | MHC.PC.OV ---
Vital Signs 05/20/25 14:41 Height 5 ft 9 in Weight 219 lb 6 oz BMI 32.4 BP 102/68 Blood Pressure Location Lt brachial Position Sitting Respiration 18 Pulse 114 H Pulse Source Pulse Oximeter Temp 97.3 F Temp Source Temporal Artery Scan Pulse Oximetry (%) 95 Oxygen Delivery Method Room Air Intake Visit Reasons: dm Supervisor Airplane Flight Attendant Required: No Accompanied by: Self / Same As Patient Allergies lisinopril Allergy (Severe, Verified 05/20/25 14:59) anaphylaxis gabapentin Adverse Reaction (Intermediate, Verified 05/20/25 14:59) leg edema Medication List - Last Reconciled 05/20/25 by Asuncion Muhammad MD [10 in 1 flip pillow As directed] amlodipine 10 mg PO DAILY aripiprazole (Abilify) 20 mg PO BEDTIME 90 days atorvastatin 20 mg PO DAILY blood pressure test kit-large (Advocate Blood Pressure Monitor kit) As directed blood sugar diagnostic (Qoof Ultra Test strips) Use 1 test strip daily blood-glucose meter (Qoof Ultra2 Meter) test once per day buspirone 15 mg PO TID cane As directed cetirizine (All Day Allergy (cetirizine)) 10 mg PO DAILY PRN 90 days cholecalciferol (vitamin D3) 25 mcg PO DAILY 90 days clonazepam 1 mg PO BEDTIME PRN cyclobenzaprine 10 mg PO TID PRN 30 days diphenhydramine HCl (Banophen) 25 mg PO BEDTIME PRN 7 days escitalopram oxalate (Lexapro) 20 mg PO DAILY 90 days flash glucose scanning reader (Dang LeStyle Yuki 2 [place]) As directed flash glucose sensor (FreeStyle Yuki 2 Sensor kit) As directed Knee brace As directed lancets ([employer] UltraSoft Lancets) Use 1 lancet once a day lidocaine 5% 1 patch topical DAILY PRN 30 days lidocaine 4% (Aspercreme (lidocaine)) 1 patch topical DAILY PRN 15 days metformin ER 500 mg PO BID 90 days methylcellulose (laxative) (Citrucel) 500 mg PO TID omeprazole 20 mg PO QAM prazosin 5 mg PO BEDTIME risperidone 2 mg PO BEDTIME semaglutide (Ozempic) 2 mg (0.75 mL) subcut QWEEK 4 weeks Shower Chair As directed tadalafil (Cialis) 20 mg PO DAILY PRN 30 days trazodone 50 - 100 mg PO DAILY PRN Ventolin HFA 90 mcg/actuation (albuterol sulfate) 2 puffs inhalation Q6H PRN 30 days NS Tobacco use date assessed: 05/20/25 Dental Screening Dental Screen Date: 05/20/25 Did you have a dental visit in the last 12 months?: Yes Did you have a dental problem in the last 6 months where you did not have access to dental care?: No Was dental information given to patient?: Patient has dentist HPI HPI Comments History of Present Illness Details The patient is a 54-year-old male presenting with acute right knee pain after a fall. He reports falling two days ago, during which his right leg bent inwards. He has experienced constant pain in the knee since the event, describing the sensation as similar to when he previously broke his finger. The patient has a history of problems with his right leg, which required surgery involving the placement of an intramedullary lela and screws. Some of the hardware, specifically two distal cortical screws, were removed in the interval since March 2022. His chronic conditions include controlled diabetes mellitus with a recent A1c of 5.9, and controlled hypertension. He also has a history of depression with anxiety. His current medications include metformin, clonazepam, Flexeril, risperidone 2 mg, and vitamin D. 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 Mild major depression JEANNETTE (acute kidney injury) Right leg DVT Allergic rhinitis Screen for colon cancer Nocturnal hypoxemia SRINI (obstructive sleep apnea) Obesity (BMI 35.0-39.9 without comorbidity) Elevated TSH Family history of throat cancer Chronic sore throat Daytime somnolence Shortness of breath Polyarthralgia Insomnia Dyslipidemia Mild asthma Essential hypertension Depression with anxiety Diabetes mellitus Surgical History History of esophagogastroduodenoscopy (EGD) Hx of colonoscopy (~12/27/22) Osteochondroma of femur Donor, kidney History of circumcision Family History Father Liver problem Mother Diabetes Hypertension Stroke Brother Throat cancer Family/Other Mental health disorder Social History Household Members: Friend(s) Housing: Apartment Alcohol intake: former Patient Tobacco Use Status: Former Tobacco user Tobacco use type: Cigarette e-Cigarette/Vaping Use: Never Used Second Hand Smoke Exposure: No service: No Current occupational status: disabled Current occupation: left hand Cognitive needs: Yes (cane ) Hearing needs: No Vision needs: No Questionnaire Thrive Questionnaire Date Thrive assessed: 07/24/24 I am a: Patient What is your living situation today?: I choose not to answer this question Within the past 12 months, did the food you bought not last and you didn't have the money to get more?: I choose not to answer this question Within the past 12 months, did you worry whether your food would run out before you got money to buy more?: I choose not to answer this question Do you have trouble paying for medicines?: I choose not to answer this question Do you have trouble getting transportation to medical appointments?: I choose not to answer this question Do you have trouble paying your heating and electricity bill?: I choose not to answer this question Do you have trouble taking care of your child, family member or friend?: I choose not to answer this question Do you have trouble with day-to-day activities such as bathing, preparing meals, shopping, managing finances, etc.?: I choose not to answer this question Are you currently unemployed and looking for a job?: I choose not to answer this question Are you interested in more education?: I choose not to answer this question Please select the resources that you would like help with: None Currently or been in a relationship where the following occur: I choose not to answer THRIVE Score: 0 JYOTHI-7 AMB Questionnaire JYOTHI-7 Date JYOTHI - 7 assessed: 05/20/25 Source: Developed by Drs. Percy Licea, Renetta Kline, Graham Pacheco and colleagues, with an educational levy from [employer]. Review of Systems Const All systems reviewed & are unremarkable except as noted in HPI and below Card Denies chest pain at rest, Denies chest pain with activity, Denies edema, Denies irregular heart rhythm, Denies claudication, Denies dyspnea, Denies dyspnea on exertion, Denies orthopnea, Denies paroxysmal nocturnal dyspnea and Denies slow heart rate Resp Denies cough, Denies dyspnea and Denies dyspnea on exertion GI Denies abdominal pain, Denies change in bowel habits, Denies excessive flatus, Denies nausea and Denies vomiting Denies urinary hesitancy, Denies urinary incontinence and Denies urinary urgency Musc Denies atrophy, Denies deformity and Denies limited range of motion Skin/Breast Denies bleeding lesions, Denies changing lesions and Denies rash Physical exam (Primary Care) Vital Signs: Last Vital Signs Temp 97.3 F 05/20/25 14:41 Pulse 114 H 05/20/25 14:41 Resp 18 05/20/25 14:41 BP 102/68 05/20/25 14:41 Pulse Ox 95 05/20/25 14:41 Oxygen Delivery Method Room Air 05/20/25 14:41 BMI result Body Mass Index 32.4 BMI Assessment/Plan discussion: High BMI High, discussed plan: lifestyle, weight reduction, dietary and physical activity Tobacco/Smoking Status: Tobacco use Status Tobacco use date assessed 05/20/25 05/20/25 14:52 Patient Tobacco Use Status Former Tobacco user 05/20/25 14:35 Tobacco use type Cigarette 05/20/25 14:35 e-Cigarette/Vaping Use Never Used 05/20/25 14:35 Thrive Assessment: Date of Thrive Assessment Date Thrive assessed 07/24/24 05/20/25 14:35 Currently or been in a relationship where the following occur: I choose not to answer Resp Effort & Inspection: normal respiratory effort Auscultation: clear to auscultation bilaterally Cardio Jugular venous distension: no JVD Rate: regular rate Rhythm: regular rhythm Heart sounds: S1 normal heart sound present and S2 normal heart sound present Extrem General: Yes full ROM Results AMB Hemoglobin A1c AMB Hemoglobin A1c 5.9 % Last Edit by CHRIS Murillo on 05/20/25 15:05 Coding Level of Care Code Est Pt Level 4 (18251) Complex EM visit Add On G2211 Diagnoses Right knee pain M25.561 Mild recurrent major depression F33.0 Type 2 diabetes mellitus without complication, without long-term current use of insulin E11.9 Diabetes mellitus type: type 2 Diabetes mellitus penitentiary insulin use: without manager terminal use Diabetes mellitus complication status: without complication Essential hypertension I10 Dyslipidemia E78.5 Time Spent (min) 22 Assessment & Plan Assessment & Plan (1) Right knee pain: Code(s): M25.561 - Pain in right knee Category: Medical (2) Mild recurrent major depression: Code(s): F33.0 - Major depressive disorder, recurrent, mild Category: Medical (3) Diabetes mellitus: Code(s): E11.9 - Type 2 diabetes mellitus without complications Category: Medical Qualifiers: Diabetes mellitus type: type 2 Diabetes mellitus penitentiary insulin use: without penitentiary use Diabetes mellitus complication status: without complication Qualified Code(s): E11.9 - Type 2 diabetes mellitus without complications (4) Essential hypertension: Code(s): I10 - Essential (primary) hypertension Category: Medical (5) Dyslipidemia: Code(s): E78.5 - Hyperlipidemia, unspecified Category: Medical Plan Plan 1. Acute On Chronic Right Knee Pain The patient's acute right knee pain is secondary to a fall two days prior, resulting in a moderate joint effusion. X-ray findings show an extensive laminated periosteal reaction of the distal femur, with differential diagnoses including heterotopic ossification, infection, or neoplasm, which requires further investigation. An urgent referral will be made to an document review specialist for further evaluation and management, likely to include a bone scan or cross-sectional imaging as recommended. A prescription for pain medication will be provided. 2. Type 2 Diabetes Mellitus The patient's diabetes is well-controlled, with a recent A1c of 5.9. Continue current management with metformin. 3. Hypertension The patient's blood pressure is controlled. Continue current antihypertensive medication. 4. Depression With Anxiety The patient's condition is managed with clonazepam and risperidone. Continue current medications as prescribed. Orders: Orders AMB Hemoglobin A1c Today E11.9 - Type 2 diabetes mellitus without complications Referrals Orthopedics Referral M25.561 - Pain in right knee Medications: New oxycodone Partial Fill upon patient request. 5 mg PO Q6H PRN 12 tabs 0RF pain 3 days
[2025-05-20 14:41] VITALS: BP 102/68; PULSE 114; RESP 18; TEMP 36.3; O2SAT 95; BMI 32.4
== END 2025-05-20 16:11 | disposition home or self-care (01) ==
LOC: HO.HMCH 14:15
PROVIDERS: PCP Internal Medicine; Visit Provider Internal Medicine
DX: M25.561 Pain in right knee (principal); F33.0 Major depressive disorder, recurrent, mild; E11.9 Type 2 diabetes mellitus without complications; I10 Essential (primary) hypertension; E78.5 Hyperlipidemia, unspecified